=== PATIENT | female | born 1955 | race Caucasian/White ===

== ENCOUNTER 2023-02-13 18:26 | Inpatient (IN) | payer OTHER, MEDICARE, SELFPAY ==
[2023-02-13] VITALS (19 sets, daily range): BP systolic 69–110; BP diastolic 37–91; PULSE 99–112; RESP 15–31; TEMP 36.4–36.7; O2SAT 93–97; BMI 30.2
--- NOTE | ~2023-02-13 | XR_ITS ---
EXAMINATION: XR CHEST CLINICAL INFORMATION: Hemoptysis COMPARISON: Previous chest x-ray most recent from yesterday TECHNIQUE: Frontal view of the chest was obtained. FINDINGS: The cardiac and mediastinal contours are stable. The lung volumes are low. Crowding of the central bronchovascular markings. There is a right jugular line with tip projecting over the cavoatrial junction. There is increasing density at the left lung base questionable for left lower lobe atelectasis or small infiltrate. The right lung is clear. There may be a small left pleural effusion. There is no right pleural effusion. There is no pneumothorax. There are degenerative changes of the spine. XR/XR chest 1V IMPRESSION: Low lung volumes. Question increasing left lower lobe atelectasis or small infiltrate and small left pleural effusion.
--- NOTE | ~2023-02-13 | FL_ITS ---
EXAMINATION: XR FL WITH IMAGES CLINICAL INFORMATION: Kidney stone. COMPARISON: Previous CT of the abdomen and pelvis 02/13/2023. TECHNIQUE: Fluoroscopy Supervised By: Dr. Forbes. Fluoroscopy Time: 34 seconds. Cumulative Dose: 12.5 mGy. Images: 1. FINDINGS: Single image demonstrates opacification of the left renal collecting system and ureter. No hydronephrosis or stone seen. FL/FL guidance in OR IMPRESSION: Fluoroscopy guidance for urologic procedure.
--- NOTE | ~2023-02-13 | XR_ITS ---
EXAMINATION: XR CHEST CLINICAL INFORMATION: Line placement COMPARISON: Previous chest x-ray most recent from yesterday TECHNIQUE: Frontal view of the chest was obtained. FINDINGS: There is a new right jugular line with tip projecting over the cavoatrial junction. The cardiac silhouette is slightly enlarged but stable. The lung volumes are low. The lungs are clear. No pleural effusion or pneumothorax. No acute bone abnormality. XR/XR chest 1V IMPRESSION: Right jugular line projects over SVC. No pneumothorax.
--- NOTE | ~2023-02-13 | CT_ITS ---
EXAMINATION: CT ANGIOGRAM OF THE CHEST WITH AND WITHOUT CONTRAST (CT PULMONARY ANGIOGRAM FOR PE) CLINICAL INFORMATION: Reason for Exam tachycardia COMPARISON: Chest radiograph 02/15/2023. CT abdomen pelvis 02/13/2023. TECHNIQUE: Prior to contrast administration, noncontrast localization images were obtained. Subsequently, multidetector volumetric imaging was performed from the thoracic inlet to below the diaphragms following the administration of 65 mL Omnipaque 350 intravenous contrast. No contrast reaction reported Sagittal, coronal, and MIP oblique sagittal reformatted images were obtained on the CT workstation, uploaded to PACS, and reviewed. This CT examination was performed using dose optimization techniques as appropriate, variously including the following: *Automated exposure control *Adjustment of mA and/or kV according to patient size (this includes techniques or standardized protocols for targeted exams where dose is matched to indication/reason for exam; i.e. extremities or head) *Use of iterative reconstruction technique Total exam dose-length product 323 mGy-cm FINDINGS: QUALITY OF STUDY/CONTRAST BOLUS: Satisfactory. PULMONARY ARTERIES: No pulmonary emboli. THORACIC AORTA: Moderate scattered calcific atherosclerosis. No aneurysmal dilatation or thoracic aortic dissection identified. LUNG: Mild bibasilar subsegmental dependent atelectasis of the lungs is noted. No focal pulmonary consolidation visualized. PLEURA: No pleural effusion or pneumothorax. MEDIASTINUM: Normal heart size. No pericardial effusion. No hilar or mediastinal lymphadenopathy. No evidence of septal bowing or right heart strain. CORONARY ARTERY CALCIFICATION: Partial visualization of moderate-marked scattered coronary artery calcific atherosclerosis. CHEST WALL/AXILLA: No axillary or internal mammary lymphadenopathy. OSSEOUS STRUCTURES: Mild multilevel anterior endplate osteophytosis of the visualized thoracolumbar spine. No vertebral body compression deformities. UPPER ABDOMEN: Diffuse low density of the visualized liver suspicious for diffuse hepatic steatosis. The gallbladder is partially included in the image [id number] and appears physiologically decompressed. The superior margins of the left and right kidneys are minimally included in the image [id number]. The visualized left kidney exhibits less cortical enhancement and the visualized right kidney suspicious for delayed nephrographic enhancement. CT/CT angio chest PE protocol IMPRESSION: 1. CT pulmonary angiogram negative for pulmonary emboli. 2. No acute cardiopulmonary abnormalities identified. 3. Partially visualized moderate-marked scattered coronary artery calcific atherosclerosis. 4. Partially visualized diffuse hepatic steatosis. 5. Mild bibasilar atelectasis of the lungs. 6. Delayed nephrographic enhancement of the visualized left kidney suspicious for active/acute obstructive nephropathy. Of note, CT of abdomen and pelvis from 02/13/2023 identified a 3 mm obstructing calculus within the left ureter. VTE: negative.
--- NOTE | ~2023-02-13 | CT_ITS ---
EXAMINATION: CT ABDOMEN AND PELVIS WITHOUT CONTRAST CLINICAL INFORMATION: Bilateral flank pain, nausea, vomiting COMPARISON: None available. TECHNIQUE: Multidetector volumetric imaging was performed from the superior aspect of the liver through the pubic symphysis. Sagittal and coronal reformatted images were obtained on the technologist's workstation. This CT examination was performed using dose optimization techniques as appropriate, variously including the following: *Automated exposure control *Adjustment of mA and/or kV according to patient size (this includes techniques or standardized protocols for targeted exams where dose is matched to indication/reason for exam; i.e. extremities or head) *Use of iterative reconstruction technique DLP: 585 mGy-cm FINDINGS: LUNG BASES: The visualized lung bases are unremarkable aside from bibasilar atelectasis. LIVER, GALLBLADDER, AND BILIARY TREE: The liver is normal in size and shape but demonstrates decreased attenuation consistent with hepatic steatosis. No focal hepatic lesion or biliary ductal dilatation is present. The gallbladder is unremarkable with no evidence of radiopaque gallstones, gallbladder wall thickening, or obvious pericholecystic inflammatory changes. PANCREAS: Unremarkable. SPLEEN: Unremarkable. ADRENAL GLANDS: Unremarkable. KIDNEYS AND URETERS: There is a 3 mm obstructing proximal left ureteral calculus with mild left sided hydronephrosis and marked perinephric stranding presumably secondary to forniceal rupture. This stone measures about 480 Hounsfield units which includes partial volume averaging. There is a 4 mm stone present in the upper pole infundibula. Vascular calcifications are seen on the left. No right-sided hydronephrosis. No renal masses. BLADDER: The bladder is empty. GASTROINTESTINAL TRACT: The small and large bowel are unremarkable. The appendix is unremarkable. ABDOMINAL WALL: No significant hernia is appreciated. There is a tiny periumbilical hernia seen containing only fat. LYMPH NODES: Normal. VASCULAR: Unremarkable. PELVIC VISCERA: The uterus and adnexa are unremarkable. OSSEOUS STRUCTURES: Degenerative changes are present spine. No bony destructive CT/CT abdomen pelvis wo IV con IMPRESSION: 3 mm obstructing proximal left ureteral calculus with mild hydronephrosis and marked perinephric stranding presumably secondary to forniceal rupture. There is at least one other nonobstructing left intrarenal calculus. Incidentally noted hepatic steatosis. Fleischner guidelines were followed.
--- NOTE | ~2023-02-13 | XR_ITS ---
EXAMINATION: XR CHEST CLINICAL INFORMATION: Shortness of breath COMPARISON: CT scan 02/14/2020 TECHNIQUE: Frontal view of the chest was obtained. FINDINGS: Heart size within normal limits. There is increased opacity seen in the left costophrenic angle suggesting a small pleural effusion although no effusions seen on CT scan performed immediately after. Left basilar atelectasis is present. XR/XR chest 1V IMPRESSION: Left basilar atelectasis
[2023-02-13] MEDS: 0.9 % Sodium Chloride 1,000 ML 999 ML IV ×2 (18:54→19:30)
--- NOTE | 2023-02-13 18:56 | ED_ITS ---
HPI - General Adult General Chief complaint: Weakness Stated complaint: nausea vomiting Time Seen by Provider: 02/13/23 18:31 Source: patient Mode of arrival: ambulatory Limitations: no limitations History of Present Illness HPI narrative: This is a 67-year-old female COVID positive 10 days ago presenting to the em ergency department complaints of nausea, vomiting, diarrhea, bilateral flank pain since yesterday. Patient reports she is very uncomfortable in pain is severe and constant in nature. She tells me she has spinal stenosis however this feels different. Patient also endorsing shortness of breath, worse with exertion. Patient tells me she is unable to keep anything down in each time she tries to eat she there has an episode of vomiting or diarrhea. Patient denies fevers, chills, chest pain, hematemesis, melena, hematochezia, vision changes, dizziness and weakness. Related Data Home Medications Medication Instructions Recorded Confirmed amlodipine 10 mg tablet 10 mg PO DAILY 02/13/23 02/13/23 atorvastatin 40 mg tablet 40 mg PO DAILY 02/13/23 02/13/23 cholecalciferol (vitamin D3) 50 50 mcg PO DAILY 02/13/23 02/13/23 mcg (2,000 unit) capsule losartan 100 mg tablet 100 mg PO DAILY 02/13/23 02/13/23 metoprolol succinate 100 mg 100 mg PO DAILY 02/13/23 02/13/23 tablet,extended release 24 hr naproxen 500 mg tablet 500 mg PO BIDWM 02/13/23 02/13/23 omeprazole 20 mg capsule,delayed 20 mg PO DAILY@0630 02/13/23 02/13/23 release Allergies Allergy/AdvReac Type Severity Reaction Status Date / Time atenolol [ATENOLOL] Allergy Unknown COUGH Verified 02/13/23 18:49 ADHESIVE BANDAGE Allergy Unknown RASH Uncoded 06/11/20 15:51 Review of Systems Review of Systems: Constitutional : No Weight loss, No Fever, No Chills, No Fatigue, No Malaise ENT/Mouth : No sore throat, No Rhinorrhea Eyes: No Eye Pain, No Swelling, No Redness Cardiovascular : No Chest Pain, No SOB, No Dyspnea on Exertion, No Orthopnea, No Edema, No Palpitations Respiratory : No Cough, No Sputum, No Wheezing Gastrointestinal : + Nausea, + Vomiting, + Diarrhea, No Constipation, No abdominal Pain, No Hematochezia, No Melena Genitourinary : No Dysuria, No Urinary Frequency, No Hematuria, Musculoskeletal : No joint pain, No Myalgias, No Joint Swelling, + flank pain Skin : No Skin Lesions, No rash Neuro : No Weakness, No Numbness, No Dizziness, No Headache Psych : No Anxiety/Panic, No Depression All other systems reviewed and are negative Yes all other systems are reviewed and are negative [facility] Past Medical History Attestation statement: The following information was validated with the patient. Source: old records reviewed and nursing notes reviewed Social History Social History Alcohol intake: never Smoked in Last 30 Days: No Use of substances other than those prescribed or required for medical reasons: No Advance Directives: No Advance Directives Information Provided: No Physical Exam ED Vital Signs: Vital Signs - 24 hr 02/13/23 18:35 02/13/23 22:12 02/13/23 22:21 Temperature 98.0 F 97.6 F Pulse Rate 104 H 104 H 102 H Respiratory Rate 20 15 28 H Blood Pressure 87/62 L 74/37 L 82/40 L Pulse Oximetry 95 95 95 Oxygen Delivery Method Room Air Room Air Room Air 02/13/23 22:34 02/13/23 21:30 02/13/23 22:40 Temperature 98.1 F Pulse Rate 107 H 99 102 H Respiratory Rate 18 30 H Blood Pressure 69/39 L 92/66 80/47 L Pulse Oximetry 95 95 Oxygen Delivery Method Room Air Room Air 02/13/23 22:40 02/13/23 22:45 02/13/23 22:45 Temperature Pulse Rate 109 H 108 H 106 H Respiratory Rate 31 H Blood Pressure 80/47 L 85/43 L 85/43 L Pulse Oximetry 94 Oxygen Delivery Method Room Air 02/13/23 22:50 02/13/23 22:52 Temperature Pulse Rate 105 H 104 H Respiratory Rate 24 H Blood Pressure 86/45 L 86/45 L Pulse Oximetry 93 Oxygen Delivery Method Room Air BMI result Body Mass Index 30.2 vss Appearance: Alert.? Oriented X3.? No acute distress.? Head: Normocephalic, atraumatic, no step-offs or deformities Eyes: Pupils equal, round and reactive to light.? CVS: Normal heart rate and rhythm.? Pulses normal.? Respiratory: No respiratory distress.? Breath sounds normal.? Abdomen: Soft and nontender.? Skin: Skin warm and dry.? Normal skin color.? Normal skin turgor.? Extremities: No lower extremity edema.? No calf ttp. 5/5 strength to bilateral upper and lower extremities Back: +CVA tenderness bilaterally Neuro: Oriented X 3.? No motor deficit.? No sensory deficit. CN 2-12 intact Course Reevaluation(s) Reevaluation #1: Patient is noted to have leukocytosis 12.8 likely reactive and secondary to nausea and vomiting, chemistry within acute kidney injury likely secondary to acute dehydration from nausea vomiting, lactic acid also noted to be elevated 3.8 I suspect this is secondary to acute dehydration not secondary to sepsis. Patient's magnesium 1 point L likely secondary to GI losses IV mag ordered. Troponin slightly elevated 34.5, unlikely that this is ACS, likely troponin e levated secondary to acute kidney injury. Patient complains only of shortness of breath however no complaints of chest pain. Normal lipase. Patient is noted to be COVID positive here while testing however patient was COVID positive 10 days ago at home likely that this is just still a positive test from initial infection. Time: 19:37 Reevaluation #2: Keep NPO likely stent tomorrow per urology , recommends hydration and suspects something else is going on. Time: 20:38 Reevaluation #3: Patient was now able to give us a urine, patient meeting criteria for urosepsis, 30 cc kg bolus ordered. Plan is for hospital admission for patient to be NPO At this time infection suspected. ? Time: 22:22 Additional Reevaluation(s): Patient accepted to our ICU. Spoke to Dr. Chicas Medications Administered Generic Name Dose Route Start Last Admin Trade Name Freq PRN Reason Stop Dose Admin Norepinephrine Bitartrate 8 mg in 250 mls @ 0 mls/hr 02/13/23 22:30 02/13/23 22:50 Levophed IV 0.11 mcg/kg/min .Q0M LIBAN 14.95 mls/hr Titration Protocol Per Protocol Sodium Chloride 2,175 mls @ 2,175 mls/hr 02/13/23 22:20 02/13/23 22:34 Ns 30 ml/kg infuse over 1 hr (2175 ml) 02/13/23 23:19 2,175 mls/hr IV Administration .Q1H STA Discontinued Medications Generic Name Dose Route Start Last Admin Trade Name Oswaldo PRN Reason Stop Dose Admin Fentanyl 25 mcg 02/13/23 19:38 02/13/23 20:16 Fentanyl Citrate/Pf 100 Mcg/2 Ml Vial IVPUSH 02/13/23 19:39 25 mcg ONCE ONE Administration Protocol Fentanyl 25 mcg 02/13/23 22:39 02/13/23 22:44 Fentanyl Citrate/Pf 100 Mcg/2 Ml Vial IVPUSH 02/13/23 22:40 25 mcg ONCE ONE Administration Protocol Sodium Chloride 1,000 mls @ 999 mls/hr 02/13/23 19:00 02/13/23 20:19 Ns IV 02/13/23 20:00 Infused .Q1H1M LIBAN Infusion Magnesium Sulfate 2 gm in 50 mls @ 25 mls/hr 02/13/23 19:11 02/13/23 21:10 Magnesium Sulfate/H2o IV 02/13/23 21:10 Infused ONCE ONE Infusion Sodium Chloride 1,000 mls @ 999 mls/hr 02/13/23 19:30 02/13/23 21:10 Ns IV 02/13/23 20:30 Infused .Q1H1M LIBAN Infusion Piperacillin Sod/Tazobactam 50 mls @ 100 mls/hr 02/13/23 19:49 02/13/23 21:10 Sod 3.375 gm/ Sodium Chloride IV 02/13/23 20:18 Infused ONCE ONE Infusion Prednisone 2 mg 02/13/23 20:37 02/13/23 21:46 Prednisone 1 Mg Tablet PO 02/13/23 20:38 2 mg ONCE ONE Administration Tamsulosin HCl 0.4 mg 02/13/23 20:37 02/13/23 21:47 Tamsulosin Hcl 0.4 Mg Capsule PO 02/13/23 20:38 0.4 mg ONCE ONE Administration Medical Decision Making Medical Decision Making [facility] Narrative: 1904 67-year-old female presents with nausea, vomiting, diarrhea, bilateral flank pain and shortness of breath for the past few days worsening. Was COVID positive 10 days ago. Physical exam bilateral CVA tenderness on exam. Concerns for possible viral illness versus colitis versus obstructing uropathy versus kidney stone versus pyelonephritis. Unlikely acute abdomen. Will rule out CHF although unlikely. I do not suspect pulmonary embolism on this patient patient without significant risk factors. Will also rule out pneumonia although unlikely. Plan labs, imaging, urine, viral testing. Differential Diagnosis Differential Diagnoses: The differential diagnosis associated with the presentation includes Concerns for possible viral illness versus colitis versus obstructing uropathy versus kidney stone versus pyelonephritis. Unlikely acute abdomen. Will rule out CHF although unlikely. I do not suspect pulmonary embolism on this patient patient without significant risk factors. Will also rule out pneumonia although unlikely. Admission/Observation Consideration of admission/observation: Escalation of care including admission/observation considered Lab Data MDM Lab Attestation statement: I reviewed the patient's lab results. 02/13/23 18:45 02/13/23 18:45 Labs: Lab Results 02/13/23 02/13/23 02/13/23 Range/Units 18:45 18:45 18:45 WBC 12.8 H (4.8-10.8) X10*3/uL RBC 4.09 L (4.20-5.50) X10*6/uL Hgb 12.5 (12.0-16.0) g/dl Hct 36.5 L (37.0-47.0) % MCV 89.2 (80.0-98.0) fL MCH 30.6 (27.0-33.0) pg MCHC 34.2 (31.0-35.0) g/dl RDW 13.1 (11.0-16.0) % Plt Count 218 (160-400) X10*3/uL MPV 10.1 (9.4-12.3) fL Immature Gran % (Auto) Cancelled Neut % (Auto) Cancelled Lymph % (Auto) Cancelled [place] % (Auto) Cancelled Eos % (Auto) Cancelled Baso % (Auto) Cancelled Lymph # (Auto) Cancelled [place] # (Auto) Cancelled Eos # (Auto) Cancelled Baso # (Auto) Cancelled Abs Immat Gran (auto) Cancelled Absolute Neuts (auto) Cancelled Absolute Nucleated RBC 0.000 (0.0-0.012) X10*3/uL Nucleated RBC % (auto) 0.0 (0.0-0.2) /100WBC Neutrophils % (Manual) 64 (45-73) % Band Neutrophils % 21 H (3-5) % Lymphocytes % (Manual) 6 L (20-40) % Monocytes % (Manual) 3 (2-11) % Metamyelocytes % 5 % Myelocytes % 1 % Abs Neuts (Manual) 10.9 H (2.0-8.3) X10*3/uL Lymphocytes # (Manual) 0.8 L (1.2-4.9) X10*3/uL Monocytes # (Manual) 0.4 (0.1-1.2) X10*3/uL Metamyelocytes # 0.6 X10*3/uL Myelocytes # 0.1 X10*/uL Platelet Estimate NORMAL (NORMAL) Large Platelets PRESENT Plt Morphology Comment NOTED RBC Morphology NORMAL VBG pH (7.32-7.43) VBG pCO2 mmHg VBG pO2 mmHg VBG HCO3 (22-26) mmol/L VBG O2 Saturation % VBG Base Excess mmol/L Sodium 137 (135-145) mmol/L Potassium 4.2 (3.3-5.1) mmol/L Chloride 106 (96-108) mmol/L Carbon Dioxide 17 L (22-29) mmol/L Anion Gap 18 (12-20) BUN 42 H (9-16) mg/dL Creatinine 1.94 H (0.5-1.4) mg/dL Estim Creat Clear Calc 25.6 Estimated GFR 26 Random Glucose 107 (60-115) mg/dL Lactic Acid (0.5-2.0) mmol/L Lactic Acid F/U @ 2Hr (0.5-2.0) mmol/L Calcium 8.5 (8.4-10.2) mg/dL Magnesium 1.0 L* (1.6-2.6) mg/dL Total Bilirubin 0.8 (0.0-1.0) mg/dL AST 20 (5-31) U/L ALT 27 (0-31) U/L Alkaline Phosphatase 75 (39-117) U/L Troponin I High Sens (<3.5-17.0) ng/L B-Natriuretic Peptide 260 H (<100) pg/mL Total Protein 5.7 L (6.5-8.0) g/dL Albumin 3.2 L (3.5-5.0) g/dL Lipase 12 (8-78) U/L Urine Color Urine Appearance Urine pH (5.0-9.0) Ur Specific [place] (1.005-1.025) Urine Protein (Neg-Trace) mg/dL Urine Glucose (UA) (Negative) mg/dL Urine Ketones (Negative) mg/dL Urine Blood (Negative) Urine Nitrite (Negative) Ur Leukocyte Esterase (Negative) Urine RBC (0-2) /HPF Urine WBC (0-5) /HPF Ur Squamous Epith Cells (0-2) /HPF Urine Bacteria (None Seen) Hyaline Casts (0-2) /LPF COVID-19 (CHARITY) (Negative) COVID-19 Clin Com 02/13/23 02/13/23 02/13/23 Range/Units 18:51 18:53 18:53 WBC (4.8-10.8) X10*3/uL RBC (4.20-5.50) X10*6/uL Hgb (12.0-16.0) g/dl Hct (37.0-47.0) % MCV (80.0-98.0) fL MCH (27.0-33.0) pg MCHC (31.0-35.0) g/dl RDW (11.0-16.0) % Plt Count (160-400) X10*3/uL MPV (9.4-12.3) fL Immature Gran % (Auto) Neut % (Auto) Lymph % (Auto) [place] % (Auto) Eos % (Auto) Baso % (Auto) Lymph # (Auto) [place] # (Auto) Eos # (Auto) Baso # (Auto) Abs Immat Gran (auto) Absolute Neuts (auto) Absolute Nucleated RBC (0.0-0.012) X10*3/uL Nucleated RBC % (auto) (0.0-0.2) /100WBC Neutrophils % (Manual) (45-73) % Band Neutrophils % (3-5) % Lymphocytes % (Manual) (20-40) % Monocytes % (Manual) (2-11) % Metamyelocytes % % Myelocytes % % Abs Neuts (Manual) (2.0-8.3) X10*3/uL Lymphocytes # (Manual) (1.2-4.9) X10*3/uL Monocytes # (Manual) (0.1-1.2) X10*3/uL Metamyelocytes # X10*3/uL Myelocytes # X10*/uL Platelet Estimate (NORMAL) Large Platelets Plt Morphology Comment RBC Morphology VBG pH (7.32-7.43) VBG pCO2 mmHg VBG pO2 mmHg VBG HCO3 (22-26) mmol/L VBG O2 Saturation % VBG Base Excess mmol/L Sodium (135-145) mmol/L Potassium (3.3-5.1) mmol/L Chloride (96-108) mmol/L Carbon Dioxide (22-29) mmol/L Anion Gap (12-20) BUN (9-16) mg/dL Creatinine (0.5-1.4) mg/dL Estim Creat Clear Calc Estimated GFR Random Glucose (60-115) mg/dL Lactic Acid 3.8 H* (0.5-2.0) mmol/L Lactic Acid F/U @ 2Hr (0.5-2.0) mmol/L Calcium (8.4-10.2) mg/dL Magnesium (1.6-2.6) mg/dL Total Bilirubin (0.0-1.0) mg/dL AST (5-31) U/L ALT (0-31) U/L Alkaline Phosphatase (39-117) U/L Troponin I High Sens 34.5 H (<3.5-17.0) ng/L B-Natriuretic Peptide (<100) pg/mL Total Protein (6.5-8.0) g/dL Albumin (3.5-5.0) g/dL Lipase (8-78) U/L Urine Color Urine Appearance Urine pH (5.0-9.0) Ur Specific [place] (1.005-1.025) Urine Protein (Neg-Trace) mg/dL Urine Glucose (UA) (Negative) mg/dL Urine Ketones (Negative) mg/dL Urine Blood (Negative) Urine Nitrite (Negative) Ur Leukocyte Esterase (Negative) Urine RBC (0-2) /HPF Urine WBC (0-5) /HPF Ur Squamous Epith Cells (0-2) /HPF Urine Bacteria (None Seen) Hyaline Casts (0-2) /LPF COVID-19 (CHARITY) Positive A (Negative) COVID-19 Clin Com See Note 02/13/23 02/13/23 02/13/23 Range/Units 20:23 20:33 21:27 WBC (4.8-10.8) X10*3/uL RBC (4.20-5.50) X10*6/uL Hgb (12.0-16.0) g/dl Hct (37.0-47.0) % MCV (80.0-98.0) fL MCH (27.0-33.0) pg MCHC (31.0-35.0) g/dl RDW (11.0-16.0) % Plt Count (160-400) X10*3/uL MPV (9.4-12.3) fL Immature Gran % (Auto) Neut % (Auto) Lymph % (Auto) [place] % (Auto) Eos % (Auto) Baso % (Auto) Lymph # (Auto) [place] # (Auto) Eos # (Auto) Baso # (Auto) Abs Immat Gran (auto) Absolute Neuts (auto) Absolute Nucleated RBC (0.0-0.012) X10*3/uL Nucleated RBC % (auto) (0.0-0.2) /100WBC Neutrophils % (Manual) (45-73) % Band Neutrophils % (3-5) % Lymphocytes % (Manual) (20-40) % Monocytes % (Manual) (2-11) % Metamyelocytes % % Myelocytes % % Abs Neuts (Manual) (2.0-8.3) X10*3/uL Lymphocytes # (Manual) (1.2-4.9) X10*3/uL Monocytes # (Manual) (0.1-1.2) X10*3/uL Metamyelocytes # X10*3/uL Myelocytes # X10*/uL Platelet Estimate (NORMAL) Large Platelets Plt Morphology Comment RBC Morphology VBG pH 7.38 (7.32-7.43) VBG pCO2 31 mmHg VBG pO2 44 mmHg VBG HCO3 19 L (22-26) mmol/L VBG O2 Saturation 73.0 % VBG Base Excess -4.8 mmol/L Sodium (135-145) mmol/L Potassium (3.3-5.1) mmol/L Chloride (96-108) mmol/L Carbon Dioxide (22-29) mmol/L Anion Gap (12-20) BUN (9-16) mg/dL Creatinine (0.5-1.4) mg/dL Estim Creat Clear Calc Estimated GFR Random Glucose (60-115) mg/dL Lactic Acid (0.5-2.0) mmol/L Lactic Acid F/U @ 2Hr 4.1 H* (0.5-2.0) mmol/L Calcium (8.4-10.2) mg/dL Magnesium (1.6-2.6) mg/dL Total Bilirubin (0.0-1.0) mg/dL AST (5-31) U/L ALT (0-31) U/L Alkaline Phosphatase (39-117) U/L Troponin I High Sens (<3.5-17.0) ng/L B-Natriuretic Peptide (<100) pg/mL Total Protein (6.5-8.0) g/dL Albumin (3.5-5.0) g/dL Lipase (8-78) U/L Urine Color Yellow Urine Appearance Cloudy Urine pH 5.5 (5.0-9.0) Ur Specific [place] 1.015 (1.005-1.025) Urine Protein 100 (2+) H (Neg-Trace) mg/dL Urine Glucose (UA) Negative (Negative) mg/dL Urine Ketones Negative (Negative) mg/dL Urine Blood Moderate (2+) H (Negative) Urine Nitrite Positive H (Negative) Ur Leukocyte Esterase Large (3+) H (Negative) Urine RBC 11-20 H (0-2) /HPF Urine WBC >50 H (0-5) /HPF Ur Squamous Epith Cells 0-2 (0-2) /HPF Urine Bacteria 4+ (None Seen) Hyaline Casts 11-20 (0-2) /LPF COVID-19 (CHARITY) (Negative) COVID-19 Clin Com 02/13/23 Range/Units 21:27 WBC (4.8-10.8) X10*3/uL RBC (4.20-5.50) X10*6/uL Hgb (12.0-16.0) g/dl Hct (37.0-47.0) % MCV (80.0-98.0) fL MCH (27.0-33.0) pg MCHC (31.0-35.0) g/dl RDW (11.0-16.0) % Plt Count (160-400) X10*3/uL MPV (9.4-12.3) fL Immature Gran % (Auto) Neut % (Auto) Lymph % (Auto) [place] % (Auto) Eos % (Auto) Baso % (Auto) Lymph # (Auto) [place] # (Auto) Eos # (Auto) Baso # (Auto) Abs Immat Gran (auto) Absolute Neuts (auto) Absolute Nucleated RBC (0.0-0.012) X10*3/uL Nucleated RBC % (auto) (0.0-0.2) /100WBC Neutrophils % (Manual) (45-73) % Band Neutrophils % (3-5) % Lymphocytes % (Manual) (20-40) % Monocytes % (Manual) (2-11) % Metamyelocytes % % Myelocytes % % Abs Neuts (Manual) (2.0-8.3) X10*3/uL Lymphocytes # (Manual) (1.2-4.9) X10*3/uL Monocytes # (Manual) (0.1-1.2) X10*3/uL Metamyelocytes # X10*3/uL Myelocytes # X10*/uL Platelet Estimate (NORMAL) Large Platelets Plt Morphology Comment RBC Morphology VBG pH (7.32-7.43) VBG pCO2 mmHg VBG pO2 mmHg VBG HCO3 (22-26) mmol/L VBG O2 Saturation % VBG Base Excess mmol/L Sodium (135-145) mmol/L Potassium (3.3-5.1) mmol/L Chloride (96-108) mmol/L Carbon Dioxide (22-29) mmol/L Anion Gap (12-20) BUN (9-16) mg/dL Creatinine (0.5-1.4) mg/dL Estim Creat Clear Calc Estimated GFR Random Glucose (60-115) mg/dL Lactic Acid (0.5-2.0) mmol/L Lactic Acid F/U @ 2Hr (0.5-2.0) mmol/L Calcium (8.4-10.2) mg/dL Magnesium (1.6-2.6) mg/dL Total Bilirubin (0.0-1.0) mg/dL AST (5-31) U/L ALT (0-31) U/L Alkaline Phosphatase (39-117) U/L Troponin I High Sens 46.6 H (<3.5-17.0) ng/L B-Natriuretic Peptide (<100) pg/mL Total Protein (6.5-8.0) g/dL Albumin (3.5-5.0) g/dL Lipase (8-78) U/L Urine Color Urine Appearance Urine pH (5.0-9.0) Ur Specific [place] (1.005-1.025) Urine Protein (Neg-Trace) mg/dL Urine Glucose (UA) (Negative) mg/dL Urine Ketones (Negative) mg/dL Urine Blood (Negative) Urine Nitrite (Negative) Ur Leukocyte Esterase (Negative) Urine RBC (0-2) /HPF Urine WBC (0-5) /HPF Ur Squamous Epith Cells (0-2) /HPF Urine Bacteria (None Seen) Hyaline Casts (0-2) /LPF COVID-19 (CHARITY) (Negative) COVID-19 Clin Com Critical Care Time Critical Care Time Critical Care Time: Yes Total Critical Care Time: 60 Attestation: I attest to this time spent taking care of the patient, obtaining history, physical, reviewing labs, imaging, speaking to my attending, speaking to specialist. Discharge Plan Discharge Clinical Impression: Nausea & vomiting, Dehydration, Acute flank pain, CESAR (acute kidney injury), Acidosis, lactic, Viral illness, Hypomagnesemia, Acute UTI Patient Disposition: Admitted As Inpatient
--- NOTE | 2023-02-13 19:05 | ECG_ITS ---
Test Reason : WEAKNESS Blood Pressure : / mmHG Vent. Rate : 103 BPM Atrial Rate : 103 BPM P-R Int : 152 ms QRS Dur : 082 ms QT Int : 346 ms P-R-T Axes : 054 015 033 degrees QTc Int : 453 ms Sinus tachycardia Nonspecific ST and T wave abnormality Abnormal ECG No previous ECGs available Referred By: Ramirez Kay Electronically Signed By:MARISEL HENDERSON
[2023-02-13 19:08] LABS: COVID-19 Test Positive (Negative); IDNOW Serial# BCCEAD1C
[2023-02-13 19:12] LABS: Alanine Aminotransferase 27 U/L (0-31); Albumin Level 3.2 g/dL (3.5-5.0); Alkaline Phosphatase 75 U/L (39-117); Anion Gap 18 (12-20); Aspartate Amino Transferase 20 U/L (5-31); Bilirubin Total 0.8 mg/dL (0.0-1.0); Blood Urea Nitrogen 42 mg/dL (9-16); Calcium 8.5 mg/dL (8.4-10.2); Carbon Dioxide 17 mmol/L (22-29); Chloride 106 mmol/L (96-108); Creatinine Clr Calc Pharmacy 25.6; Estimated Glomerular Filt Rate 26; Glucose Random 107 mg/dL (60-115); Hematocrit 36.5 % (37.0-47.0); Hemoglobin 12.5 g/dl (12.0-16.0); Lipase 12 U/L (8-78); Mean Corpuscular HGB Conc 34.2 g/dl (31.0-35.0); Mean Corpuscular Hemoglobin 30.6 pg (27.0-33.0); Mean Corpuscular Volume 89.2 fL (80.0-98.0); Mean Platelet Volume 10.1 fL (9.4-12.3); Platelet Count 218 X10*3/uL (160-400); Potassium 4.2 mmol/L (3.3-5.1); Red Blood Count 4.09 X10*6/uL (4.20-5.50); Red Cell Distribution Width 13.1 % (11.0-16.0); Sodium 137 mmol/L (135-145); Total Protein 5.7 g/dL (6.5-8.0)
[2023-02-13 19:15] LABS: WBC ABN SCTR FOR CBC 1; White Blood Count 12.8 X10*3/uL (4.8-10.8)
[2023-02-13] MEDS: Magnesium Sulfate/H2O 2 GM/50 ML PIGGYBACK IV ×2 (19:24→23:32)
[2023-02-13 19:32] LABS: Troponin-I High Sensitivity 34.5 ng/L (<3.5-17.0)
[2023-02-13 19:36] LABS: Lactic Acid 3.8 mmol/L (0.5-2.0)
[2023-02-13 19:37] LABS: B Type Natriuretic Peptide 260 pg/mL (<100)
--- NOTE | 2023-02-13 19:42 | PC.NURSE ---
I assumed care of the pt at 1900. Pt is resting in bed, A&Ox4, GCS 15. Pt complaining of pain in the sides and low to mid back. Pt is resting in bed, labs have been drawn, CT scan has been taken, and fluids are running at this time.
[2023-02-13 19:45] LABS: Neutrophils Percent Manual 64 % (45-73)
[2023-02-13 19:47] LABS: Band Neutrophils Percent 21 % (3-5); Lymphocytes Absolute Manual 0.8 X10*3/uL (1.2-4.9); Lymphocytes Percent Manual 6 % (20-40); Metamyelocytes Absolute 0.6 X10*3/uL; Metamyelocytes Percent 5 %; Monocytes Absolute Manual 0.4 X10*3/uL (0.1-1.2); Monocytes Percent Manual 3 % (2-11); Myelocytes Absolute 0.1 X10*/uL; Myelocytes Percent 1 %; Neutrophils Absolute Manual 10.9 X10*3/uL (2.0-8.3)
[2023-02-13 19:48] LABS: Large Platelet PRESENT; Platelet Estimate NORMAL (NORMAL); Platelet Morphology Comment NOTED; RBC Morphology NORMAL
[2023-02-13] MEDS: fentaNYL citrate/PF 100 MCG/2 ML VIAL 25 MCG IVPUSH ×2 (20:16→22:44)
[2023-02-13] MEDS: Piperacillin Sodium/Tazobactam 3.375 GM in 0.9 % Sodium Chloride 50 ML IV (20:18)
[2023-02-13 20:30] LABS: Venous Blood Gas Refer to POC result
[2023-02-13 20:30] LABS: VBG Base Excess -4.8 mmol/L; VBG HCO3 19 mmol/L (22-26); VBG pCO2 31 mmHg; VBG pH 7.38 (7.32-7.43); VBG pO2 44 mmHg
[2023-02-13 20:45] LABS: Appearance Urine Cloudy; Color Urine Yellow; Glucose Urine UA Negative (Negative); Leukocyte Esterase Urine Large (3+) (Negative); Nitrite Urine Positive (Negative); PH 5.5 (5.0-9.0); Specific Gravity - Urine 1.015 (1.005-1.025); UMIC TRIGGER UACC YES; Urine Blood Moderate (2+) (Negative); Urine Ketones Negative (Negative); Urine Protein 100 (2+) mg/dL (Neg-Trace)
[2023-02-13 20:59] LABS: Bacteria Urine 4+ (None Seen); Squamous Epithelial Cell Urine 0-2 /HPF (0-2); UACC Culture Trigger YES; WBC Urine >50 /HPF (0-5)
[2023-02-13 21:10] LABS: Reflex Lactate? Lactic Acid Added
[2023-02-13] MEDS: predniSONE 1 MG TABLET 2 MG PO (21:46)
[2023-02-13] MEDS: Tamsulosin HCL 0.4 MG CAPSULE PO (21:47)
--- NOTE | 2023-02-13 21:59 | PHA.MEDREC ---
Pharmacy Consult ? Medication Reconciliation Pharmacy has completed the medication reconciliation.
[2023-02-13 22:08] LABS: ~Lactic Acid-LAB USE ONLY 4.1 mmol/L (0.5-2.0)
[2023-02-13 22:12] LABS: Troponin-I High Sensitivity 46.6 ng/L (<3.5-17.0)
--- NOTE | 2023-02-13 22:19 | PC.NURSE ---
Pt resting in bed, complaining of 7/10 pain in the sides and back. Pt BP noted to be low, PS Toma aware. Pt has been put on the panel monitor. Pt A&Ox4, GCS 15. Pt has a mild cough at this time. Stating she is very sore and tired.
[2023-02-13] MEDS: Norepinephrine Bitartrate/D5W 8 MG/250 ML PLAST..BAG 6.8 MG IV (22:34)
[2023-02-13] MEDS: SODIUM CHLORIDE 2175 ML IV (22:34)
--- NOTE | 2023-02-13 22:36 | PC.NURSE ---
Pt started on levophed. BP set for q5min, per protocol. Pt stated she is not feeling well. Pt also put in reverse trendelenburg.
--- NOTE | 2023-02-13 22:53 | PC.NURSE ---
Pt resting in bed at this time. States her pain is getting better. Levophed is being titrated per protocol, vitals q5min are as documented. Pt will be going to ICU, waiting food safety scientist at this time.
[2023-02-13] MEDS: Lactated Ringers 1,000 ML 150 ML IVCONT (22:59)
--- NOTE | 2023-02-13 23:12 | PM.CCHP ---
History of Present Illness Date of Service: 02/13/23 Attending physician on admission: Jermain Chicas Chief Complaint: SEPTIC SHOCK / OBSTRUCTIVE UROPATHY HPI: ?67-year-old patient with underlying history of coronary disease status post 2 stents about 10 years ago, hypertension, hyperlipidemia, vitamin-D deficiency, GERD, chronic joint and back pain due to lumbar spinal stenosis among other things, presents to us after being seen in the emergency room last night due to complaints of flank pain. ?Patient reported to be COVID positive which was diagnosed 10 days ago, had presented to with complaints of nausea, vomiting, diarrhea and bilateral flank pain since yesterday, according to her her pain is 10/10 but it does not feel that is coming from her chronic back pain as it feels different, more on the flanks, 10/10, nonradiating, associated with the above-mentioned symptoms, nothing has made it better worse in spite of trying to take naproxen for her pain. ? In the ER, the patient was noted to be hypotensive, tachycardic however afebrile, her overall workup reveal white count of 12.8, H&H of 12.5 and 36.5 respectively, platelets 218, 21% bands, sodium 137, potassium 4.2, chloride 106, carbon dioxide 17, anion gap 18, BUN 42, creatinine 1.94.? Initial lactic acid 3.8, has however come down to 3.6, magnesium 1.0.? BNP 260, troponin 34.5, 46.6, albumin 3.2. Venous blood gas shows pH of 7.38, pCO2 31, P 0 244, HC03 19. Urinalysis shows proteinuria, hematuria, positive nitrates with large amount of leukocyte esterases, more than 50 white blood cells and no epithelial cells. ? Patient receive 30 mL/kg of IV fluids, started on antibiotics, troponin was recycle given her underlying history of coronary disease but it did not show any significant increase.? She did receive some IV magnesium and was started on Levophed given the lack of of improvement of her blood pressure with IV fluids. Currently patient still complains of pain despite of fentanyl given earlier, denies any other associated symptoms despite the above mentioned.? Patient will be transferred to ICU for further care. ? ROS:? Refuses due to pain ? Past Medical History:? As above ? Past Surgical History: HEART STENTS X 2 ? Family history:? Noncontributory ? Social History:? PATIENT DENIES ANY HISTORY OF ALCOHOL, TOBACCO OR DRUG USE EVER. ? CODE STATUS: FULL CODE ? Allergies: Atenolol (cough); adhesive (rash) ? Home Medications: See Med Rec ? SEPSIS EXAM DONE AT 2300 VS: ?8251, 108, 24, 93%, 97. 6 F General:? Alert oriented x3 appears in mild distress.? Speaking full sentences.? Speech is well articulated, thought process is coherent.? Following all commands. Skin:? Intact, no lesions, edema, erythema, clubbing or cyanosis.? No ulcers. HEENT:? Head is normocephalic, atraumatic, pupils equal round reactive to light accommodation bilaterally.? Extraocular movements appear intact.? Buccal mucosa is dry. Neck is supple without lymphadenopathy. Cardiac:? Tachycardic 110 beats per minute.? No murmurs, rubs, gallops Pulmonary:? Clear to auscultation, no wheezes, rales or rhonchi. Abdomen:? Protuberant, positive bowel sounds in all 4 quadrants.? Soft, nontender, no rebound or guarding.? And there is however CVA tenderness on the left more than the right. Musculoskeletal:? Moving all 4 extremities upon request a major joints, there is no crepitus or tenderness.? The strength is 5/5 bilaterally and throughout all 4 extremities.? There is no leg edema , no calf tenderness , no leg asymmetry.? Neurologic:? As above. No focal deficits noted. Vascular:? 2+ pulses upper and lower extremities distally. ?Capillary refill less than 2 seconds of the finger and toes bilaterally upper and lower extremities. ? SIGNIFICANT LABORATORY DATA:? As above ? REVIEW OF IMAGES: ? CT/CT abdomen pelvis wo IV con IMPRESSION: 3 mm obstructing proximal left ureteral calculus with mild hydro nephrosis and marked perinephric stranding presumably secondary to forniceal rupture. There is at least one other no obstructing left intrarenal calculus. Incidentally noted hepatic steatosis. CXR IMPRESSION: Left basilar atelectasis ? EKG REVIEW: Sinus tachycardia [address] elevation or depressions. QTc 453ms. ? ASSESSMENT : 1. Acute Septic Shock 2. Left Obstructive Uropathy 3. UTI 4. CESAR due to # 2, hypo-perfussion, vol depletion and (naproxen) 5. Severe Hypomagnesemia 6. Trop Abnormality likely reactive to illness not ACS 7. Hypoalbumenemia 8. Lactic and Metabolic Acidosis due to above 9. Covid (+) infection 10. Protenuria ? PLAN OF CARE: Patient will be admitted to the ICU, will continue with IV fluids as she appears to be quite dehydrated despite of the fluids given in the ER, Mohr catheter, monitor I&Os, vital signs per protocol, place her on Levophed and titrate to a map of 65-70, urology has been consulted and they are aware of the patient's current condition. ?I will give her IV bicarbonate and albumin. ?Will recheck laboratories in the morning.? Continues to replete his electrolytes and give her albumin.? Will continue with Zosyn renally adjusted doses and droplet precautions. At this point the patient has adequate IV access including a 18 gauge therefore I do not think is necessary to place a central line now. Hold Nephrotoxins. ? GI PROPHYLAXIS: ?IV ppi DVT PROPHYLAXIS:? Heparin every 12 hours ? Clinical update and focused sepsis exam done at 03:00 on 02/14/2023 ? Alert and oriented x3 no acute distress.? Sleeping comfortably. Skin no changes. Heart regular rate and rhythm no murmurs, rubs, gallops Lungs clear to auscultation bilaterally no wheezes rales or rhonchi Abdomen protuberant positive bowel sounds, soft, nontender, CVA tenderness no longer present.? Patient under the influence of Dilaudid. Musculoskeletal moving all 4 extremities without crepitus or discomfort.? No edema. Vascular 2+ pulses bilaterally and distally of upper and lower extremities. ?Capillary refill less than 2 seconds of the finger and toes bilaterally upper and lower extremities. ? Critical care time used for critical evaluation of this patient, diagnosis, treatment and coordination of care, review her records and documentation TOTAL CRITICAL CARE TIME 90 MIN; discussion and coordination with consultants, completely separate from any procedures performed. Patient's care was discussed in detail with Dr. Chicas.? He is aware of all the above as well as the plan of care for this patient. [facility] Social History Social History Household Members: Family Housing: House Do you presently have visiting nurse or other home services: No Alcohol intake: never Patient Tobacco Use Status: Never used Tobacco Smoked in Last 30 Days: No e-Cigarette/Vaping Use: Never Used Patient Interested in Nicotine Replacement: No Patient Given Instructions on How to Stop Smoking: No Second Hand Smoke Exposure: No Use of substances other than those prescribed or required for medical reasons: No Currently Displaying Signs/Symptoms of Drug Intoxication Withdrawal: No Any prior treatment program specific to substance use: No Have you been hit, kicked, punched, or otherwise hurt by someone within the past year? If so, by whom?: No Do you feel safe in your current relationship?: No Current Relationship Is there a partner from a previous relationship who is making you feel unsafe now?: No Advance Directives: No Advance Directives Information Provided: No Advance Directives on File: No Do you have thoughts of harming others: None Do you have a plan to hurt others: No Plan Recently lost weight without trying: No Nutrition Risks: No Nutritional Risk Patient : No : No Poor oral hygiene: No service: No Meds Allergies Allergy/AdvReac Type Severity Reaction Status Date / Time atenolol [ATENOLOL] Allergy Unknown COUGH Verified 02/13/23 18:49 ADHESIVE BANDAGE Allergy Unknown RASH Uncoded 06/11/20 15:51 Active Medications: Current Medications Heparin Sodium (Porcine) (Heparin Sodium,Porcine 5,000 Unit/Ml Vial) 5,000 unit SUBCUT Q12H LIBAN Norepinephrine Bitartrate (Levophed) 8 mg in 250 mls @ 0 mls/hr IV .Q0M LIBAN; Protocol Last Titration: 02/13/23 23:10 Dose: 0.19 mcg/kg/min, 25.83 mls/hr Sodium Chloride (Ns) 2,175 mls @ 2,175 mls/hr 30 ml/kg infuse over 1 hr (2175 ml) IV .Q1H STA Stop: 02/13/23 23:19 Last Admin: 02/13/23 22:34 Dose: 2,175 mls/hr Lactated Ringer's (Lr) 1,000 mls @ 150 mls/hr IVCONT .Q6H40M LIBAN Last Admin: 02/13/23 22:59 Dose: 150 mls/hr Magnesium Sulfate (Magnesium Sulfate/H2o) 2 gm in 50 mls @ 25 mls/hr IV ONCE ONE Stop: 02/14/23 00:52 Pharmacy Consult (Consult Rx Perform Med Rec) 1 each MISCELLANE ONCE PRN PRN Reason: Consult order Home Medications Medication Instructions Recorded Confirmed Last Taken Type amlodipine 10 mg tablet 10 mg PO DAILY 02/13/23 02/13/23 Unknown History atorvastatin 40 mg tablet 40 mg PO DAILY 02/13/23 02/13/23 Unknown History cholecalciferol (vitamin D3) 50 50 mcg PO DAILY 02/13/23 02/13/23 Unknown History mcg (2,000 unit) capsule losartan 100 mg tablet 100 mg PO DAILY 02/13/23 02/13/23 Unknown History metoprolol succinate 100 mg 100 mg PO DAILY 02/13/23 02/13/23 Unknown History tablet,extended release 24 hr naproxen 500 mg tablet 500 mg PO BIDWM 02/13/23 02/13/23 Unknown History omeprazole 20 mg capsule,delayed 20 mg PO DAILY@0630 02/13/23 02/13/23 Unknown History release Physical Exam Vital Signs: Vital Signs: Last Vital Signs Temp 97.6 F 02/13/23 22:12 Pulse 106 H 02/13/23 23:10 Resp 24 H 02/13/23 22:52 BP 87/56 L 02/13/23 23:10 Pulse Ox 93 02/13/23 22:52 O2 Del Method Room Air 02/13/23 22:52 BMI result Body Mass Index 30.2 Results Labs 02/13/23 18:45 02/13/23 18:45 Labs: Laboratory Results - last 24 hr 02/13/23 02/13/23 02/13/23 18:45 18:45 18:45 MCV 89.2 MCH 30.6 MCHC 34.2 RDW 13.1 Plt Count 218 MPV 10.1 Immature Gran % (Auto) Cancelled Neut % (Auto) Cancelled Lymph % (Auto) Cancelled Steele % (Auto) Cancelled Eos % (Auto) Cancelled Baso % (Auto) Cancelled Lymph # (Auto) Cancelled Steele # (Auto) Cancelled Eos # (Auto) Cancelled Baso # (Auto) Cancelled Abs Immat Gran (auto) Cancelled Absolute Neuts (auto) Cancelled Absolute Nucleated RBC 0.000 Nucleated RBC % (auto) 0.0 Neutrophils % (Manual) 64 Band Neutrophils % 21 H Lymphocytes % (Manual) 6 L Monocytes % (Manual) 3 Metamyelocytes % 5 Myelocytes % 1 Abs Neuts (Manual) 10.9 H Lymphocytes # (Manual) 0.8 L Monocytes # (Manual) 0.4 Metamyelocytes # 0.6 Myelocytes # 0.1 Platelet Estimate NORMAL Large Platelets PRESENT Plt Morphology Comment NOTED RBC Morphology NORMAL VBG pH VBG pCO2 VBG pO2 VBG HCO3 VBG O2 Saturation VBG Base Excess Anion Gap 18 Estim Creat Clear Calc 25.6 Estimated GFR 26 Random Glucose 107 Lactic Acid Lactic Acid F/U @ 2Hr Calcium 8.5 Magnesium 1.0 L* Total Bilirubin 0.8 AST 20 ALT 27 Alkaline Phosphatase 75 Troponin I High Sens B-Natriuretic Peptide 260 H Total Protein 5.7 L Albumin 3.2 L Lipase 12 Urine Color Urine Appearance Urine pH Ur Specific Treynor Urine Protein Urine Glucose (UA) Urine Ketones Urine Blood Urine Nitrite Ur Leukocyte Esterase Urine RBC Urine WBC Ur Squamous Epith Cells Urine Bacteria Hyaline Casts COVID-19 ([facility]) COVID-19 Clin Com 02/13/23 02/13/23 02/13/23 18:51 18:53 18:53 MCV MCH MCHC RDW Plt Count MPV Immature Gran % (Auto) Neut % (Auto) Lymph % (Auto) Steele % (Auto) Eos % (Auto) Baso % (Auto) Lymph # (Auto) Steele # (Auto) Eos # (Auto) Baso # (Auto) Abs Immat Gran (auto) Absolute Neuts (auto) Absolute Nucleated RBC Nucleated RBC % (auto) Neutrophils % (Manual) Band Neutrophils % Lymphocytes % (Manual) Monocytes % (Manual) Metamyelocytes % Myelocytes % Abs Neuts (Manual) Lymphocytes # (Manual) Monocytes # (Manual) Metamyelocytes # Myelocytes # Platelet Estimate Large Platelets Plt Morphology Comment RBC Morphology VBG pH VBG pCO2 VBG pO2 VBG HCO3 VBG O2 Saturation VBG Base Excess Anion Gap Estim Creat Clear Calc Estimated GFR Random Glucose Lactic Acid 3.8 H* Lactic Acid F/U @ 2Hr Calcium Magnesium Total Bilirubin AST ALT Alkaline Phosphatase Troponin I High Sens 34.5 H B-Natriuretic Peptide Total Protein Albumin Lipase Urine Color Urine Appearance Urine pH Ur Specific Treynor Urine Protein Urine Glucose (UA) Urine Ketones Urine Blood Urine Nitrite Ur Leukocyte Esterase Urine RBC Urine WBC Ur Squamous Epith Cells Urine Bacteria Hyaline Casts COVID-19 (CHARITY) Positive A COVID-19 Clin Com See Note 02/13/23 02/13/23 02/13/23 20:23 20:33 21:27 MCV MCH MCHC RDW Plt Count MPV Immature Gran % (Auto) Neut % (Auto) Lymph % (Auto) Steele % (Auto) Eos % (Auto) Baso % (Auto) Lymph # (Auto) Steele # (Auto) Eos # (Auto) Baso # (Auto) Abs Immat Gran (auto) Absolute Neuts (auto) Absolute Nucleated RBC Nucleated RBC % (auto) Neutrophils % (Manual) Band Neutrophils % Lymphocytes % (Manual) Monocytes % (Manual) Metamyelocytes % Myelocytes % Abs Neuts (Manual) Lymphocytes # (Manual) Monocytes # (Manual) Metamyelocytes # Myelocytes # Platelet Estimate Large Platelets Plt Morphology Comment RBC Morphology VBG pH 7.38 VBG pCO2 31 VBG pO2 44 VBG HCO3 19 L VBG O2 Saturation 73.0 VBG Base Excess -4.8 Anion Gap Estim Creat Clear Calc Estimated GFR Random Glucose Lactic Acid Lactic Acid F/U @ 2Hr 4.1 H* Calcium Magnesium Total Bilirubin AST ALT Alkaline Phosphatase Troponin I High Sens B-Natriuretic Peptide Total Protein Albumin Lipase Urine Color Yellow Urine Appearance Cloudy Urine pH 5.5 Ur Specific Treynor 1.015 Urine Protein 100 (2+) H Urine Glucose (UA) Negative Urine Ketones Negative Urine Blood Moderate (2+) H Urine Nitrite Positive H Ur Leukocyte Esterase Large (3+) H Urine RBC 11-20 H Urine WBC >50 H Ur Squamous Epith Cells 0-2 Urine Bacteria 4+ Hyaline Casts 11-20 COVID-19 (CHARITY) COVID-19 Clin Com 02/13/23 21:27 MCV MCH MCHC RDW Plt Count MPV Immature Gran % (Auto) Neut % (Auto) Lymph % (Auto) Steele % (Auto) Eos % (Auto) Baso % (Auto) Lymph # (Auto) Steele # (Auto) Eos # (Auto) Baso # (Auto) Abs Immat Gran (auto) Absolute Neuts (auto) Absolute Nucleated RBC Nucleated RBC % (auto) Neutrophils % (Manual) Band Neutrophils % Lymphocytes % (Manual) Monocytes % (Manual) Metamyelocytes % Myelocytes % Abs Neuts (Manual) Lymphocytes # (Manual) Monocytes # (Manual) Metamyelocytes # Myelocytes # Platelet Estimate Large Platelets Plt Morphology Comment RBC Morphology VBG pH VBG pCO2 VBG pO2 VBG HCO3 VBG O2 Saturation VBG Base Excess Anion Gap Estim Creat Clear Calc Estimated GFR Random Glucose Lactic Acid Lactic Acid F/U @ 2Hr Calcium Magnesium Total Bilirubin AST ALT Alkaline Phosphatase Troponin I High Sens 46.6 H B-Natriuretic Peptide Total Protein Albumin Lipase Urine Color Urine Appearance Urine pH Ur Specific Treynor Urine Protein Urine Glucose (UA) Urine Ketones Urine Blood Urine Nitrite Ur Leukocyte Esterase Urine RBC Urine WBC Ur Squamous Epith Cells Urine Bacteria Hyaline Casts COVID-19 (CHARITY) COVID-19 Clin Com Imaging Radiologist's Impressions: Impressions Abdomen/Pelvis CT 02/13/23 19:15 IMPRESSION: 3 mm obstructing proximal left ureteral calculus with mild hydronephrosis and marked perinephric stranding presumably secondary to forniceal rupture. There is at least one other nonobstructing left intrarenal calculus. Incidentally noted hepatic steatosis. Fleischner guidelines were followed. Chest X-Ray 02/13/23 19:25 IMPRESSION: Left basilar atelectasis Assessment and Plan Time Spent With Patient Time: Total time managing care of this patient today ____ minutes.
--- NOTE | 2023-02-13 23:13 | W.PM.CCHP ---
Procedures Date of Service Date of Service: 02/13/23 Central Line Placement Right IJ: Central Line Comments: A quick time-out was made for clarification and proper patient identification, patient was positioned, landmarks were identified, US used to locate a? large compressible IJ.? The right neck was widely prepped and draped in a full sterile fashion.? Ultrasound was used to locate again the right IJ, the vein was cannulated on the 1st pass with an 18 gauge thin needle, dark nonpulsatile blood return was obtained.? The wire was threaded, a small incision was made at its base and dilator inserted. A16cm triple-lumen central venous catheter was advanced into the vein up to the hub without problems, wired was removed. Ports had? good blood return and flushed x3.? The catheter was secured with 3 sutures at 3 sites, a Biopatch and dry sterile dressing were applied. Post procedure chest x-ray showed the line to be in good position without pneumothorax.? No bleeding or complications noted.
--- NOTE | 2023-02-13 23:17 | PC.NURSE ---
Pt BP 95/49. MAP is 59. Spoke with Toma who said to keep rate where it is.
[2023-02-13 23:31] LABS: Reflex Lactate? 2 Y
[2023-02-13] MEDS: Heparin Sodium,Porcine 5,000 UNIT/ML VIAL 5000 UNIT SUBCUT (23:33)
[2023-02-14] VITALS (54 sets, daily range): BP systolic 78–158; BP diastolic 45–124; PULSE 97–127; RESP 15–30; TEMP 37.3–38.2; O2SAT 90–94; BMI 32.8; BMI 34.0
[2023-02-14] MEDS: HYDROmorphone HCl 1 MG/ML SYRINGE IVPUSH (00:10)
--- NOTE | 2023-02-14 00:13 | PC.NURSE ---
Handover given to Kong RN in person. Pt transferred to ICU bed and equipment.
[2023-02-14 00:30] LABS: ~Lactic Acid-LAB USE ONLY 3.6 mmol/L (0.5-2.0)
[2023-02-14] MEDS: ondansetron HCL 4 MG/2 ML VIAL IVPUSH ×4 (01:20→18:35)
[2023-02-14] MEDS: Albumin Human 25 % 100 ML 200 ML IV ×2 (02:48→04:09)
[2023-02-14] MEDS: Piperacillin Sodium/Tazobactam 2.25 GM in 0.9 % Sodium Chloride 50 ML IV ×4 (02:48→21:31)
[2023-02-14] MEDS: Lactated Ringers 1,000 ML 150 ML IVCONT (02:49)
[2023-02-14] MEDS: Norepinephrine Bitartrate/D5W 8 MG/250 ML PLAST..BAG 62.53 MG IV (02:49)
[2023-02-14] MEDS: Sodium Bicarbonate 8.4% 50 MEQ/50 ML SYRINGE 100 MEQ IVPUSH (02:50)
[2023-02-14] MEDS: HYDROmorphone HCl 0.5 MG/0.5 ML SYRINGE IVPUSH ×3 (04:00→16:16)
--- NOTE | 2023-02-14 04:25 | PC.NURSE ---
ADMIT TO 252-1 APPROX 23:45ALERT..ORIENTED X3..SPEECH CLEAR...NSR/S.TACH..PERIPHERAL LEVOPHED 0.25 MCG/KG/MIN AT ADMISSION AND LR 150 CC/HR...SBP 80'S....C/O URGE TO VOID..VOIDED APPROX 75 CC WITH CONTINUED URGE TO VOID...BRODY PLACED PER ICU PA WITH 300 CC PALE YELLOW URINE ON INSERTION...LEVOPHED TITRATED TO 0.48 MCG/KG/MIN...ZOSYN AND ALBUMEN 25G 100ML X2 PER NOV.....MEDICATED WITH DILAUDID PER MAR AT ADMIT FOR C/O 9/10 BACK AND FLANK PAIN...PER REPORT PATIEMT HAS OBSTRUCTIVE KIDNEY STONE..ZOFRAN X1 FOR NAUSEA (NO EMESIS) WITH EFFECT...REPEAT DILAUDID THIS AM FOR FLANK PAIN WITH REKIEF..DENIES NAUSEA SINCE ZOFRAN...NPO EXCEPT FOR ICE CHIPS PER ICU PA...DR ALEXANDER TO SEE PATIENT IN AM PER ER REPORT
[2023-02-14 05:33] LABS: Hemoglobin 9.6 g/dl (12.0-16.0); Mean Corpuscular HGB Conc 33.1 g/dl (31.0-35.0); Mean Corpuscular Hemoglobin 30.2 pg (27.0-33.0); Mean Corpuscular Volume 91.2 fL (80.0-98.0); Platelet Count 164 X10*3/uL (160-400); Red Blood Count 3.18 X10*6/uL (4.20-5.50); Red Cell Distribution Width 13.4 % (11.0-16.0)
[2023-02-14 05:42] LABS: WBC ABN SCTR FOR CBC 1; White Blood Count 13.6 X10*3/uL (4.8-10.8)
[2023-02-14 05:50] LABS: Magnesium 2.1 mg/dL (1.6-2.6); Phosphorus 4.1 mg/dL (2.7-4.5)
[2023-02-14 05:57] LABS: Band Neutrophils Percent 27 % (3-5); Lymphocytes Absolute Manual 0.4 X10*3/uL (1.2-4.9); Lymphocytes Percent Manual 3 % (20-40); Metamyelocytes Absolute 0.4 X10*3/uL; Metamyelocytes Percent 3 %; Monocytes Absolute Manual 0.3 X10*3/uL (0.1-1.2); Monocytes Percent Manual 2 % (2-11); Myelocytes Absolute 0.3 X10*/uL; Myelocytes Percent 2 %; Neutrophils Absolute Manual 12.2 X10*3/uL (2.0-8.3); Neutrophils Percent Manual 63 % (45-73)
[2023-02-14 05:58] LABS: RBC Morphology NOTED
[2023-02-14 05:59] LABS: Burr Cells 1+ (0-2) /OIF; Dohle Bodies PRESENT; Platelet Estimate NORMAL (NORMAL)
[2023-02-14 06:00] LABS: Platelet Morphology Comment NORMAL
[2023-02-14 06:02] LABS: Lactic Acid 3.9 mmol/L (0.5-2.0); Troponin-I High Sensitivity 52.2 ng/L (<3.5-17.0)
[2023-02-14] MEDS: Norepinephrine Bitartrate/D5W 8 MG/250 ML PLAST..BAG 65.25 MG IV (06:02)
[2023-02-14] MEDS: Pantoprazole Sodium 40 MG/10 ML VIAL IVPUSH (06:03)
[2023-02-14 06:04] LABS: VBG Base Excess -1.1 mmol/L; VBG HCO3 23 mmol/L (22-26); VBG pCO2 37 mmHg; VBG pH 7.39 (7.32-7.43); VBG pO2 53 mmHg
[2023-02-14 06:07] LABS: Venous Blood Gas Refer to POC result
[2023-02-14 07:05] LABS: Alanine Aminotransferase 27 U/L (0-31); Albumin Level 3.4 g/dL (3.5-5.0); Alkaline Phosphatase 61 U/L (39-117); Anion Gap 17 (12-20); Aspartate Amino Transferase 23 U/L (5-31); Bilirubin Total 0.6 mg/dL (0.0-1.0); Blood Urea Nitrogen 33 mg/dL (9-16); Calcium 7.5 mg/dL (8.4-10.2); Carbon Dioxide 19 mmol/L (22-29); Chloride 108 mmol/L (96-108); Creatinine Clr Calc Pharmacy 35.4; Estimated Glomerular Filt Rate 35; Glucose Random 140 mg/dL (60-115); Potassium 3.6 mmol/L (3.3-5.1); Sodium 140 mmol/L (135-145); Total Protein 5.1 g/dL (6.5-8.0)
[2023-02-14 07:27] LABS: Reflex Lactate? Lactic Acid Added
[2023-02-14] MEDS: Heparin Sodium,Porcine 5,000 UNIT/ML VIAL 5000 UNIT SUBCUT ×2 (08:05→21:46)
[2023-02-14] MEDS: fentaNYL citrate/PF 100 MCG/2 ML VIAL 50 MCG IVPUSH ×5 (08:23→23:44)
[2023-02-14] MEDS: Midazolam HCl/PF 2 MG/2 ML VIAL 1.5 MG IVPUSH (08:23)
[2023-02-14 08:26] LABS: ~Lactic Acid-LAB USE ONLY 3.4 mmol/L (0.5-2.0)
[2023-02-14] MEDS: Albumin Human 25 % 100 ML IV ×3 (08:39→21:46)
--- NOTE | 2023-02-14 09:39 | MHC.CM.PN ---
Pt resides w/sister and is independent with all care needs. No services or DME: HCP copy requested - IMM in chart. Sister to transport to home. CM to follow.
[2023-02-14] MEDS: Norepinephrine Bitartrate/D5W 8 MG/250 ML PLAST..BAG 59.81 MG IV (09:44)
--- NOTE | 2023-02-14 09:57 | W.PM.CCHP ---
Procedures Date of Service Date of Service: 02/14/23 Central Line Placement Right IJ: Central Line Comments: After obtaining informed consent right internal jugular triple-lumen central venous catheter placed for vasopressor support under ultrasound guidance and usual sterile conditions with no immediate complications. Line position verified by chest x-ray.
--- NOTE | 2023-02-14 09:59 | P.PNCC_ITS ---
Subjective Subjective Date of Service: 02/14/23 Interval History: 67-year-old lady with underlying history of CAD, hypertension GERD, spinal stenosis admitted on 02/13/2023 with flank pain and hypotension refractory to initial IV fluid support secondary to obstructive left renal calculus with mild hydronephrosis with gram-negative bacteremia. Patient was started on broad- spectrum antibiotics and admitted to the intensive care unit. Of note, patient is COVID positive for approximately 10 days prior to admission. No events overnight. Critical Care Time (minutes): 45 Physical Exam Vital Signs: Vital Signs: Last Vital Signs Temp 99.7 F 02/14/23 09:00 Pulse 120 H 02/14/23 09:50 Resp 17 02/14/23 09:00 BP 117/71 02/14/23 09:50 Pulse Ox 92 02/14/23 09:00 O2 Del Method Nasal Cannula 02/14/23 09:00 O2 Flow Rate 5 02/14/23 09:00 BMI result Body Mass Index 34.0 Const: General: no acute distress, alert and awake Eyes: Sclerae: sclerae normal EOM: EOMs intact bilaterally Neck: Neck: Yes no lymphadenopathy, Yes trachea midline and Yes supple Resp: Effort & Inspection: normal respiratory effort and no respiratory distress Auscultation: clear to auscultation bilaterally Cardio: Rate: tachycardic Rhythm: regular rhythm Heart sounds: no gallops, no murmurs and no rubs GI: Palpation (GI): Soft to palpation and Other GI palpation findings present ( Nontender) Auscultation: normal bowel sounds Extrem: General: Yes no pedal edema, No clubbing and No cyanosis Objective Data Labs 02/14/23 05:17 02/14/23 05:17 Labs: Laboratory Results - last 24 hr 02/13/23 02/13/23 02/13/23 18:45 18:45 18:45 WBC 12.8 H RBC 4.09 L Hgb 12.5 Hct 36.5 L MCV 89.2 MCH 30.6 MCHC 34.2 RDW 13.1 Plt Count 218 MPV 10.1 Immature Gran % (Auto) Cancelled Neut % (Auto) Cancelled Lymph % (Auto) Cancelled Archer % (Auto) Cancelled Eos % (Auto) Cancelled Baso % (Auto) Cancelled Lymph # (Auto) Cancelled Archer # (Auto) Cancelled Eos # (Auto) Cancelled Baso # (Auto) Cancelled Abs Immat Gran (auto) Cancelled Absolute Neuts (auto) Cancelled Absolute Nucleated RBC 0.000 Nucleated RBC % (auto) 0.0 Neutrophils % (Manual) 64 Band Neutrophils % 21 H Lymphocytes % (Manual) 6 L Monocytes % (Manual) 3 Metamyelocytes % 5 Myelocytes % 1 Abs Neuts (Manual) 10.9 H Lymphocytes # (Manual) 0.8 L Monocytes # (Manual) 0.4 Metamyelocytes # 0.6 Myelocytes # 0.1 Dohle Bodies Platelet Estimate NORMAL Large Platelets PRESENT Plt Morphology Comment NOTED RBC Morphology NORMAL [place] Cells VBG pH VBG pCO2 VBG pO2 VBG HCO3 VBG O2 Saturation VBG Base Excess Sodium 137 Potassium 4.2 Chloride 106 Carbon Dioxide 17 L Anion Gap 18 BUN 42 H Creatinine 1.94 H Estim Creat Clear Calc 25.6 Estimated GFR 26 Random Glucose 107 Lactic Acid Lactic Acid F/U @ 2Hr Lactic Acid F/U @ 4Hr Calcium 8.5 Phosphorus Magnesium 1.0 L* Total Bilirubin 0.8 AST 20 ALT 27 Alkaline Phosphatase 75 Troponin I High Sens B-Natriuretic Peptide 260 H Total Protein 5.7 L Albumin 3.2 L Lipase 12 Urine Color Urine Appearance Urine pH Ur Specific Wagner Urine Protein Urine Glucose (UA) Urine Ketones Urine Blood Urine Nitrite Ur Leukocyte Esterase Urine RBC Urine WBC Ur Squamous Epith Cells Urine Bacteria Hyaline Casts COVID-19 (CHARITY) COVID-19 Clin Com 02/13/23 02/13/23 02/13/23 18:51 18:53 18:53 WBC RBC Hgb Hct MCV MCH MCHC RDW Plt Count MPV Immature Gran % (Auto) Neut % (Auto) Lymph % (Auto) Archer % (Auto) Eos % (Auto) Baso % (Auto) Lymph # (Auto) Archer # (Auto) Eos # (Auto) Baso # (Auto) Abs Immat Gran (auto) Absolute Neuts (auto) Absolute Nucleated RBC Nucleated RBC % (auto) Neutrophils % (Manual) Band Neutrophils % Lymphocytes % (Manual) Monocytes % (Manual) Metamyelocytes % Myelocytes % Abs Neuts (Manual) Lymphocytes # (Manual) Monocytes # (Manual) Metamyelocytes # Myelocytes # Dohle Bodies Platelet Estimate Large Platelets Plt Morphology Comment RBC Morphology Bambi Cells VBG pH VBG pCO2 VBG pO2 VBG HCO3 VBG O2 Saturation VBG Base Excess Sodium Potassium Chloride Carbon Dioxide Anion Gap BUN Creatinine Estim Creat Clear Calc Estimated GFR Random Glucose Lactic Acid 3.8 H* Lactic Acid F/U @ 2Hr Lactic Acid F/U @ 4Hr Calcium Phosphorus Magnesium Total Bilirubin AST ALT Alkaline Phosphatase Troponin I High Sens 34.5 H B-Natriuretic Peptide Total Protein Albumin Lipase Urine Color Urine Appearance Urine pH Ur Specific Wagner Urine Protein Urine Glucose (UA) Urine Ketones Urine Blood Urine Nitrite Ur Leukocyte Esterase Urine RBC Urine WBC Ur Squamous Epith Cells Urine Bacteria Hyaline Casts COVID-19 (CHARITY) Positive A COVID-19 Clin Com See Note 02/13/23 02/13/23 02/13/23 20:23 20:33 21:27 WBC RBC Hgb Hct MCV MCH MCHC RDW Plt Count MPV Immature Gran % (Auto) Neut % (Auto) Lymph % (Auto) Archer % (Auto) Eos % (Auto) Baso % (Auto) Lymph # (Auto) Archer # (Auto) Eos # (Auto) Baso # (Auto) Abs Immat Gran (auto) Absolute Neuts (auto) Absolute Nucleated RBC Nucleated RBC % (auto) Neutrophils % (Manual) Band Neutrophils % Lymphocytes % (Manual) Monocytes % (Manual) Metamyelocytes % Myelocytes % Abs Neuts (Manual) Lymphocytes # (Manual) Monocytes # (Manual) Metamyelocytes # Myelocytes # Dohle Bodies Platelet Estimate Large Platelets Plt Morphology Comment RBC Morphology [place] Cells VBG pH 7.38 VBG pCO2 31 VBG pO2 44 VBG HCO3 19 L VBG O2 Saturation 73.0 VBG Base Excess -4.8 Sodium Potassium Chloride Carbon Dioxide Anion Gap BUN Creatinine Estim Creat Clear Calc Estimated GFR Random Glucose Lactic Acid Lactic Acid F/U @ 2Hr 4.1 H* Lactic Acid F/U @ 4Hr Calcium Phosphorus Magnesium Total Bilirubin AST ALT Alkaline Phosphatase Troponin I High Sens B-Natriuretic Peptide Total Protein Albumin Lipase Urine Color Yellow Urine Appearance Cloudy Urine pH 5.5 Ur Specific Wagner 1.015 Urine Protein 100 (2+) H Urine Glucose (UA) Negative Urine Ketones Negative Urine Blood Moderate (2+) H Urine Nitrite Positive H Ur Leukocyte Esterase Large (3+) H Urine RBC 11-20 H Urine WBC >50 H Ur Squamous Epith Cells 0-2 Urine Bacteria 4+ Hyaline Casts 11-20 COVID-19 (CHARITY) COVID-19 [employer] (Wayin) 02/13/23 02/14/23 02/14/23 21:27 00:07 05:17 WBC 13.6 H RBC 3.18 L D Hgb 9.6 L D Hct 29.0 L D MCV 91.2 MCH 30.2 MCHC 33.1 RDW 13.4 Plt Count 164 MPV 10.0 Immature Gran % (Auto) Cancelled Neut % (Auto) Cancelled Lymph % (Auto) Cancelled Archer % (Auto) Cancelled Eos % (Auto) Cancelled Baso % (Auto) Cancelled Lymph # (Auto) Cancelled Archer # (Auto) Cancelled Eos # (Auto) Cancelled Baso # (Auto) Cancelled Abs Immat Gran (auto) Cancelled Absolute Neuts (auto) Cancelled Absolute Nucleated RBC 0.000 Nucleated RBC % (auto) 0.0 Neutrophils % (Manual) 63 Band Neutrophils % 27 H Lymphocytes % (Manual) 3 L Monocytes % (Manual) 2 Metamyelocytes % 3 Myelocytes % 2 Abs Neuts (Manual) 12.2 H Lymphocytes # (Manual) 0.4 L Monocytes # (Manual) 0.3 Metamyelocytes # 0.4 Myelocytes # 0.3 Dohle Bodies PRESENT Platelet Estimate NORMAL Large Platelets Plt Morphology Comment NORMAL RBC Morphology NOTED Bambi Cells 1+ (0-2) VBG pH VBG pCO2 VBG pO2 VBG HCO3 VBG O2 Saturation VBG Base Excess Sodium Potassium Chloride Carbon Dioxide Anion Gap BUN Creatinine Estim Creat Clear Calc Estimated GFR Random Glucose Lactic Acid Lactic Acid F/U @ 2Hr Lactic Acid F/U @ 4Hr 3.6 H* Calcium Phosphorus Magnesium Total Bilirubin AST ALT Alkaline Phosphatase Troponin I High Sens 46.6 H B-Natriuretic Peptide Total Protein Albumin Lipase Urine Color Urine Appearance Urine pH Ur Specific Wagner Urine Protein Urine Glucose (UA) Urine Ketones Urine Blood Urine Nitrite Ur Leukocyte Esterase Urine RBC Urine WBC Ur Squamous Epith Cells Urine Bacteria Hyaline Casts COVID-19 (CHARITY) COVID-19 [employer] (Wayin) 02/14/23 02/14/23 02/14/23 05:17 05:17 05:17 WBC RBC Hgb Hct MCV MCH MCHC RDW Plt Count MPV Immature Gran % (Auto) Neut % (Auto) Lymph % (Auto) Archer % (Auto) Eos % (Auto) Baso % (Auto) Lymph # (Auto) Archer # (Auto) Eos # (Auto) Baso # (Auto) Abs Immat Gran (auto) Absolute Neuts (auto) Absolute Nucleated RBC Nucleated RBC % (auto) Neutrophils % (Manual) Band Neutrophils % Lymphocytes % (Manual) Monocytes % (Manual) Metamyelocytes % Myelocytes % Abs Neuts (Manual) Lymphocytes # (Manual) Monocytes # (Manual) Metamyelocytes # Myelocytes # Dohle Bodies Platelet Estimate Large Platelets Plt Morphology Comment RBC Morphology Bambi Cells VBG pH VBG pCO2 VBG pO2 VBG HCO3 VBG O2 Saturation VBG Base Excess Sodium 140 Potassium 3.6 Chloride 108 Carbon Dioxide 19 L Anion Gap 17 BUN 33 H Creatinine 1.49 H Estim Creat Clear Calc 35.4 Estimated GFR 35 Random Glucose 140 H Lactic Acid 3.9 H* Lactic Acid F/U @ 2Hr Lactic Acid F/U @ 4Hr Calcium 7.5 L D Phosphorus 4.1 Magnesium 2.1 Total Bilirubin 0.6 AST 23 ALT 27 Alkaline Phosphatase 61 Troponin I High Sens 52.2 H* B-Natriuretic Peptide Total Protein 5.1 L Albumin 3.4 L Lipase Urine Color Urine Appearance Urine pH Ur Specific Wagner Urine Protein Urine Glucose (UA) Urine Ketones Urine Blood Urine Nitrite Ur Leukocyte Esterase Urine RBC Urine WBC Ur Squamous Epith Cells Urine Bacteria Hyaline Casts COVID-19 (CHARITY) COVID-19 Clin Com 02/14/23 02/14/23 05:54 08:01 WBC RBC Hgb Hct MCV MCH MCHC RDW Plt Count MPV Immature Gran % (Auto) Neut % (Auto) Lymph % (Auto) Archer % (Auto) Eos % (Auto) Baso % (Auto) Lymph # (Auto) Archer # (Auto) Eos # (Auto) Baso # (Auto) Abs Immat Gran (auto) Absolute Neuts (auto) Absolute Nucleated RBC Nucleated RBC % (auto) Neutrophils % (Manual) Band Neutrophils % Lymphocytes % (Manual) Monocytes % (Manual) Metamyelocytes % Myelocytes % Abs Neuts (Manual) Lymphocytes # (Manual) Monocytes # (Manual) Metamyelocytes # Myelocytes # Dohle Bodies Platelet Estimate Large Platelets Plt Morphology Comment RBC Morphology Bambi Cells VBG pH 7.39 VBG pCO2 37 VBG pO2 53 VBG HCO3 23 VBG O2 Saturation 84.0 VBG Base Excess -1.1 Sodium Potassium Chloride Carbon Dioxide Anion Gap BUN Creatinine Estim Creat Clear Calc Estimated GFR Random Glucose Lactic Acid Lactic Acid F/U @ 2Hr 3.4 H* Lactic Acid F/U @ 4Hr Calcium Phosphorus Magnesium Total Bilirubin AST ALT Alkaline Phosphatase Troponin I High Sens B-Natriuretic Peptide Total Protein Albumin Lipase Urine Color Urine Appearance Urine pH Ur Specific Wagner Urine Protein Urine Glucose (UA) Urine Ketones Urine Blood Urine Nitrite Ur Leukocyte Esterase Urine RBC Urine WBC Ur Squamous Epith Cells Urine Bacteria Hyaline Casts COVID-19 (CHARITY) COVID-19 Clin Com Microbiology Microbiology Results: Microbiology 02/13/23 Unknown Urine clean catch - Urine [place] top Urine Culture - Preliminary Gram negative jose 02/13/23 20:20 Blood - Venous Blood Culture - Preliminary Prelim: GNR Gram Stain only 02/13/23 20:20 Blood - Venous Blood Culture - Preliminary Prelim: GNR Gram Stain only Progress Note: A&P Assessment and plan (1) Gram-negative bacteremia: Status: Acute (2) CESAR (acute kidney injury): Status: Acute (3) Hydronephrosis with urinary obstruction due to renal calculus: Status: Acute (4) Septic shock: Status: Acute (5) CAD (coronary artery disease): Status: Acute Plan Assessment: 67-year-old lady admitted with septic shock secondary to obstructing left renal calculus and Gram-negative bacteremia Plan: Neuro: No acute issues. Cardiac: septic shock, continue to titrate off pressors as tolerated. Underlying CAD. Pulmonary: No acute issues. Renal: Acute renal failure secondary to septic shock and obstructing left renal calculus with hydronephrosis. Urology evaluation is pending. Continue to monitor renal indices and urine output. Non oliguric. Endo: No acute issues. GI: No acute issues. ID: Gram-negative bacteremia with source. Continue broad-spectrum antibiotics until cultures are finalized. Heme/Onc: No acute issues. Psych: No acute issues. Miscellaneous: No acute issues. Prophylaxis: Heparin Diet: nothing by mouth Critical care time spent: 45 minutes excluding separately billable procedures Quality Stroke Does the patient have a stroke diagnosis?: No VTE Prior VTE?: No VTE Risk Level:: Medical - moderate - high VTE Device Contraindication: N/A - Device Ordered VTE Drug Contraindication: N/A - Med Ordered
[2023-02-14 10:07] LABS: Reflex Lactate? 2 Y
[2023-02-14 10:25] LABS: Cancel Lactic Acid Canceled
--- NOTE | 2023-02-14 13:13 | P.CNUR_ITS ---
History of Present Illness Consult details Consult date: 02/14/23 Narrative: Consulting Complaint left ureteric stone with sepsis 67-year-old female Repeat presentation to the emergency room Left flank pain. Reports COVID positive 10 days ago. Complaints now include nausea, vomiting, diarrhea and bilateral flank pain. Pain not improved with any oral medication, nonradiating Noted to be hypotensive, tachycardic but afebrile in ER WBC 12.8, platelets 218, creatinine 1.9, initial lactate 3.8 Past medical history of CAD status post stent 2009, hypertension, dyslipidemia Has been on pressure support in ICU with IV fluids and antibiotics. Imaging shows 3 mm left proximal stone with mild hydronephrosis ICU physician requesting decompression Recommend cystoscopy, retrograde, left stent placement Review of Systems Constitutional: Constitutional: Denies chills and Denies fever(s) Cardiovascular: Cardiovascular: Reports no additional cardiovascular complaints and Denies syncope Respiratory: Respiratory: Denies cough Gastrointestinal: Gastrointestinal: Denies abdominal pain and Denies heartburn Genitourinary: Genitourinary: Reports as per HPI and Denies change in libido Neurologic: Denies syncope Psychiatric: Psychiatric: Denies change in libido Endocrine: Endocrine: Denies change in libido [facility] Social History Social History Household Members: Family Housing: House Do you presently have visiting nurse or other home services: No Alcohol intake: never Patient Tobacco Use Status: Never used Tobacco Smoked in Last 30 Days: No e-Cigarette/Vaping Use: Never Used Patient Interested in Nicotine Replacement: No Patient Given Instructions on How to Stop Smoking: No Second Hand Smoke Exposure: No Use of substances other than those prescribed or required for medical reasons: No Currently Displaying Signs/Symptoms of Drug Intoxication Withdrawal: No Any prior treatment program specific to substance use: No Have you been hit, kicked, punched, or otherwise hurt by someone within the past year? If so, by whom?: No Do you feel safe in your current relationship?: No Current Relationship Is there a partner from a previous relationship who is making you feel unsafe now?: No Advance Directives: No Advance Directives Information Provided: No Advance Directives on File: No Do you have thoughts of harming others: None Do you have a plan to hurt others: No Plan Recently lost weight without trying: No Nutrition Risks: No Nutritional Risk Patient : No : No Poor oral hygiene: No service: No Meds Allergies Allergy/AdvReac Type Severity Reaction Status Date / Time atenolol [ATENOLOL] Allergy Unknown COUGH Verified 02/13/23 18:49 ADHESIVE BANDAGE Allergy Unknown RASH Uncoded 06/11/20 15:51 Active Medications: Current Medications Fentanyl (Fentanyl Citrate/Pf 100 Mcg/2 Ml Vial) 50 mcg IVPUSH Q2H PRN; Protocol PRN Reason: Pain, Severe (Pain Scale 7-10) Last Admin: 02/14/23 12:52 Dose: 50 mcg Heparin Sodium (Porcine) (Heparin Sodium,Porcine 5,000 Unit/Ml Vial) 5,000 unit SUBCUT BID [facility] Last Admin: 02/14/23 08:05 Dose: 5,000 unit Norepinephrine Bitartrate (Levophed) 8 mg in 250 mls @ 0 mls/hr IV .Q0M [facility]; Protocol Last Titration: 02/14/23 12:53 Dose: 0.26 mcg/kg/min, 35.34 mls/hr Piperacillin Sod/Tazobactam (Sod 2.25 gm/ Sodium Chloride) 50 mls @ 100 mls/hr IV Q6H [facility] Last Infusion: 02/14/23 08:37 Dose: Infused Albumin Human (Kedbumin 25 %) 100 mls @ 100 mls/hr IV Q6H [facility] Stop: 02/15/23 03:14 Last Infusion: 02/14/23 09:44 Dose: Infused Ondansetron HCl (Ondansetron Hcl 4 Mg/2 Ml Vial) 4 mg IVPUSH Q8H PRN PRN Reason: Nausea Last Admin: 02/14/23 11:10 Dose: 4 mg Pantoprazole Sodium (Pantoprazole Sodium 40 Mg/10 Ml Vial) 40 mg IVPUSH DAILY@0630 [facility] Last Admin: 02/14/23 06:03 Dose: 40 mg Pharmacy Consult (Consult Rx Perform Med Rec) 1 each MISCELLANE ONCE PRN PRN Reason: Consult order Home Medications Medication Instructions Recorded Confirmed Last Taken Type amlodipine 10 mg tablet 10 mg PO DAILY 02/13/23 02/13/23 Unknown History atorvastatin 40 mg tablet 40 mg PO DAILY 02/13/23 02/13/23 Unknown History cholecalciferol (vitamin D3) 50 50 mcg PO DAILY 02/13/23 02/13/23 Unknown History mcg (2,000 unit) capsule losartan 100 mg tablet 100 mg PO DAILY 02/13/23 02/13/23 Unknown History metoprolol succinate 100 mg 100 mg PO DAILY 02/13/23 02/13/23 Unknown History tablet,extended release 24 hr naproxen 500 mg tablet 500 mg PO BIDWM 02/13/23 02/13/23 Unknown History omeprazole 20 mg capsule,delayed 20 mg PO DAILY@0630 02/13/23 02/13/23 Unknown History release Physical Exam Vital Signs: Vital Signs: Last Vital Signs Temp 100.6 F H 02/14/23 13:00 Pulse 114 H 02/14/23 13:00 Resp 25 H 02/14/23 13:00 BP 117/71 02/14/23 13:00 Pulse Ox 92 02/14/23 13:00 O2 Del Method Nasal Cannula 02/14/23 13:00 O2 Flow Rate 5 02/14/23 13:00 BMI result Body Mass Index 34.0 Const: General: cooperative, healthy appearing, comfortable and no acute distress Orientation/consciousness: patient oriented x3 HEENT: Face and sinus: Yes normal facial exam Mouth: moist mucous membranes Neck: Neck: Yes normal visual inspection, Yes full ROM and Yes trachea midline Chest: Chest palpation & inspection: normal inspection of the chest Resp: Effort & Inspection: normal respiratory effort, able to speak in comp lete sentences and no respiratory distress GI: Inspection: Yes normal to inspection Back/Spine/Pelvis: Cervical Spine: normal cervical lordosis Thoracic/Lumbar Spine: thoracic and lumbar spine normal to inspection Skin: General skin exam: no rashes or lesions noted Neuro: General: patient oriented x3, gait normal, tone normal and moves all extremities Extrem: General: Yes normal to inspection and Yes capillary refill normal Results Labs 02/14/23 05:17 02/14/23 05:17 Labs: Abnormal lab results 02/13/23 02/13/23 02/13/23 Range/Units 18:45 18:45 18:45 WBC 12.8 H (4.8-10.8) X10*3/uL RBC 4.09 L (4.20-5.50) X10*6/uL Hgb (12.0-16.0) g/dl Hct 36.5 L (37.0-47.0) % Band Neutrophils % 21 H (3-5) % Lymphocytes % (Manual) 6 L (20-40) % Abs Neuts (Manual) 10.9 H (2.0-8.3) X10*3/uL Lymphocytes # (Manual) 0.8 L (1.2-4.9) X10*3/uL VBG HCO3 (22-26) mmol/L Carbon Dioxide 17 L (22-29) mmol/L BUN 42 H (9-16) mg/dL Creatinine 1.94 H (0.5-1.4) mg/dL Random Glucose (60-115) mg/dL Lactic Acid (0.5-2.0) mmol/L Lactic Acid F/U @ 2Hr (0.5-2.0) mmol/L Lactic Acid F/U @ 4Hr (0.5-2.0) mmol/L Calcium (8.4-10.2) mg/dL Magnesium 1.0 L* (1.6-2.6) mg/dL Troponin I High Sens (<3.5-17.0) ng/L B-Natriuretic Peptide 260 H (<100) pg/mL Total Protein 5.7 L (6.5-8.0) g/dL Albumin 3.2 L (3.5-5.0) g/dL Urine Protein (Neg-Trace) mg/dL Urine Blood (Negative) Urine Nitrite (Negative) Ur Leukocyte Esterase (Negative) Urine RBC (0-2) /HPF Urine WBC (0-5) /HPF COVID-19 ([facility]) (Negative) 02/13/23 02/13/23 02/13/23 Range/Units 18:51 18:53 18:53 WBC (4.8-10.8) X10*3/uL RBC (4.20-5.50) X10*6/uL Hgb (12.0-16.0) g/dl Hct (37.0-47.0) % Band Neutrophils % (3-5) % Lymphocytes % (Manual) (20-40) % Abs Neuts (Manual) (2.0-8.3) X10*3/uL Lymphocytes # (Manual) (1.2-4.9) X10*3/uL VBG HCO3 (22-26) mmol/L Carbon Dioxide (22-29) mmol/L BUN (9-16) mg/dL Creatinine (0.5-1.4) mg/dL Random Glucose (60-115) mg/dL Lactic Acid 3.8 H* (0.5-2.0) mmol/L Lactic Acid F/U @ 2Hr (0.5-2.0) mmol/L Lactic Acid F/U @ 4Hr (0.5-2.0) mmol/L Calcium (8.4-10.2) mg/dL Magnesium (1.6-2.6) mg/dL Troponin I High Sens 34.5 H (<3.5-17.0) ng/L B-Natriuretic Peptide (<100) pg/mL Total Protein (6.5-8.0) g/dL Albumin (3.5-5.0) g/dL Urine Protein (Neg-Trace) mg/dL Urine Blood (Negative) Urine Nitrite (Negative) Ur Leukocyte Esterase (Negative) Urine RBC (0-2) /HPF Urine WBC (0-5) /HPF COVID-19 ([facility]) Positive A (Negative) 02/13/23 02/13/23 02/13/23 Range/Units 20:23 20:33 21:27 WBC (4.8-10.8) X10*3/uL RBC (4.20-5.50) X10*6/uL Hgb (12.0-16.0) g/dl Hct (37.0-47.0) % Band Neutrophils % (3-5) % Lymphocytes % (Manual) (20-40) % Abs Neuts (Manual) (2.0-8.3) X10*3/uL Lymphocytes # (Manual) (1.2-4.9) X10*3/uL VBG HCO3 19 L (22-26) mmol/L Carbon Dioxide (22-29) mmol/L BUN (9-16) mg/dL Creatinine (0.5-1.4) mg/dL Random Glucose (60-115) mg/dL Lactic Acid (0.5-2.0) mmol/L Lactic Acid F/U @ 2Hr 4.1 H* (0.5-2.0) mmol/L Lactic Acid F/U @ 4Hr (0.5-2.0) mmol/L Calcium (8.4-10.2) mg/dL Magnesium (1.6-2.6) mg/dL Troponin I High Sens (<3.5-17.0) ng/L B-Natriuretic Peptide (<100) pg/mL Total Protein (6.5-8.0) g/dL Albumin (3.5-5.0) g/dL Urine Protein 100 (2+) H (Neg-Trace) mg/dL Urine Blood Moderate (2+) H (Negative) Urine Nitrite Positive H (Negative) Ur Leukocyte Esterase Large (3+) H (Negative) Urine RBC 11-20 H (0-2) /HPF Urine WBC >50 H (0-5) /HPF COVID-19 ([facility]) (Negative) 02/13/23 02/14/23 02/14/23 Range/Units 21:27 00:07 05:17 WBC 13.6 H (4.8-10.8) X10*3/uL RBC 3.18 L D (4.20-5.50) X10*6/uL Hgb 9.6 L D (12.0-16.0) g/dl Hct 29.0 L D (37.0-47.0) % Band Neutrophils % 27 H (3-5) % Lymphocytes % (Manual) 3 L (20-40) % Abs Neuts (Manual) 12.2 H (2.0-8.3) X10*3/uL Lymphocytes # (Manual) 0.4 L (1.2-4.9) X10*3/uL VBG HCO3 (22-26) mmol/L Carbon Dioxide (22-29) mmol/L BUN (9-16) mg/dL Creatinine (0.5-1.4) mg/dL Random Glucose (60-115) mg/dL Lactic Acid (0.5-2.0) mmol/L Lactic Acid F/U @ 2Hr (0.5-2.0) mmol/L Lactic Acid F/U @ 4Hr 3.6 H* (0.5-2.0) mmol/L Calcium (8.4-10.2) mg/dL Magnesium (1.6-2.6) mg/dL Troponin I High Sens 46.6 H (<3.5-17.0) ng/L B-Natriuretic Peptide (<100) pg/mL Total Protein (6.5-8.0) g/dL Albumin (3.5-5.0) g/dL Urine Protein (Neg-Trace) mg/dL Urine Blood (Negative) Urine Nitrite (Negative) Ur Leukocyte Esterase (Negative) Urine RBC (0-2) /HPF Urine WBC (0-5) /HPF COVID-19 ([facility]) (Negative) 02/14/23 02/14/23 02/14/23 Range/Units 05:17 05:17 05:17 WBC (4.8-10.8) X10*3/uL RBC (4.20-5.50) X10*6/uL Hgb (12.0-16.0) g/dl Hct (37.0-47.0) % Band Neutrophils % (3-5) % Lymphocytes % (Manual) (20-40) % Abs Neuts (Manual) (2.0-8.3) X10*3/uL Lymphocytes # (Manual) (1.2-4.9) X10*3/uL VBG HCO3 (22-26) mmol/L Carbon Dioxide 19 L (22-29) mmol/L BUN 33 H (9-16) mg/dL Creatinine 1.49 H (0.5-1.4) mg/dL Random Glucose 140 H (60-115) mg/dL Lactic Acid 3.9 H* (0.5-2.0) mmol/L Lactic Acid F/U @ 2Hr (0.5-2.0) mmol/L Lactic Acid F/U @ 4Hr (0.5-2.0) mmol/L Calcium 7.5 L D (8.4-10.2) mg/dL Magnesium (1.6-2.6) mg/dL Troponin I High Sens 52.2 H* (<3.5-17.0) ng/L B-Natriuretic Peptide (<100) pg/mL Total Protein 5.1 L (6.5-8.0) g/dL Albumin 3.4 L (3.5-5.0) g/dL Urine Protein (Neg-Trace) mg/dL Urine Blood (Negative) Urine Nitrite (Negative) Ur Leukocyte Esterase (Negative) Urine RBC (0-2) /HPF Urine WBC (0-5) /HPF COVID-19 ([facility]) (Negative) 02/14/23 Range/Units 08:01 WBC (4.8-10.8) X10*3/uL RBC (4.20-5.50) X10*6/uL Hgb (12.0-16.0) g/dl Hct (37.0-47.0) % Band Neutrophils % (3-5) % Lymphocytes % (Manual) (20-40) % Abs Neuts (Manual) (2.0-8.3) X10*3/uL Lymphocytes # (Manual) (1.2-4.9) X10*3/uL VBG HCO3 (22-26) mmol/L Carbon Dioxide (22-29) mmol/L BUN (9-16) mg/dL Creatinine (0.5-1.4) mg/dL Random Glucose (60-115) mg/dL Lactic Acid (0.5-2.0) mmol/L Lactic Acid F/U @ 2Hr 3.4 H* (0.5-2.0) mmol/L Lactic Acid F/U @ 4Hr (0.5-2.0) mmol/L Calcium (8.4-10.2) mg/dL Magnesium (1.6-2.6) mg/dL Troponin I High Sens (<3.5-17.0) ng/L B-Natriuretic Peptide (<100) pg/mL Total Protein (6.5-8.0) g/dL Albumin (3.5-5.0) g/dL Urine Protein (Neg-Trace) mg/dL Urine Blood (Negative) Urine Nitrite (Negative) Ur Leukocyte Esterase (Negative) Urine RBC (0-2) /HPF Urine WBC (0-5) /HPF COVID-19 ([facility]) (Negative) Short CBC 02/13/23 02/14/23 Range/Units 18:45 05:17 WBC 12.8 H 13.6 H (4.8-10.8) X10*3/uL Hgb 12.5 9.6 L D (12.0-16.0) g/dl Hct 36.5 L 29.0 L D (37.0-47.0) % Plt Count 218 164 (160-400) X10*3/uL BMP 02/13/23 02/14/23 18:45 05:17 Sodium 137 140 Potassium 4.2 3.6 Chloride 106 108 Carbon Dioxide 17 L 19 L BUN 42 H 33 H Creatinine 1.94 H 1.49 H Calcium 8.5 7.5 L D Liver Function 02/13/23 02/14/23 Range/Units 18:45 05:17 Total Bilirubin 0.8 0.6 (0.0-1.0) mg/dL AST 20 23 (5-31) U/L ALT 27 27 (0-31) U/L Alkaline Phosphatase 75 61 (39-117) U/L Albumin 3.2 L 3.4 L (3.5-5.0) g/dL Urine 02/13/23 Range/Units 20:33 Urine Color Yellow Urine Appearance Cloudy Urine pH 5.5 (5.0-9.0) Ur Specific [place] 1.015 (1.005-1.025) Urine Protein 100 (2+) H (Neg-Trace) mg/dL Urine Glucose (UA) Negative (Negative) mg/dL All other labs normal. Assessment and Plan (1) Septic shock: Status: Acute (2) Gram-negative bacteremia: Status: Acute (3) Hydronephrosis with urinary obstruction due to renal calculus: Status: Acute Plan Risks, benefits and alternatives to therapy were discussed. These include but are not limited to infection, bleeding, damage to local organs and tissues, need for further interventions. Anesthetic risks regarding cardiac arrhythmia, blood clots, and potential mortality were discussed. The patient understands the typical recovery time and the outpatient nature of the procedure. After consideration of these risks the patient gives full informed consent and they wish to move ahead with the procedure. cystoscopy, left retrograde, left stent placement Time Spent With Patient Time: Total time managing care of this patient today ____ minutes. Procedures Date of Service Date of Service: 02/14/23
[2023-02-14] MEDS: Ketorolac Tromethamine 15 MG/ML VIAL IVPUSH (13:48)
--- NOTE | 2023-02-14 13:49 | P.CDIM_ITS ---
PROVIDER RESPONSE TEXT: To clarify, the appropriate diagnosis supported by the clinical indicators: Acute QUERY TEXT: PHYSICIAN'S DOCUMENTATION REQUEST Date of Query: 02/14/2023 12:29 PM EDT Patient Name: Mariella Pantoja Admit Date: 02/14/2023 Dear Jermain Chicas, A review of the medical record indicates additional documentation may be needed. Please review below and update the documentation accordingly. Clinical Indicators: Per H&P 02/13/23: Lactic and Metabolic Acidosis Clarify which of the following accurately represents the acuity of the (insert diagnosis). Possible options might include: Acute Acute on chronic Compensated Chronic stable condition Remission Other (explain)Clinically unable to determine (explain)Thank you, Rhianna Tovar RN Use of terms such as suspected, likely, concern for, or probable (associated with a specific diagnosi s that is being evaluated, monitored, or treated as if it exists) are acceptable and can be coded in the inpatient se tting, when documented at the time of discharge. Please use your independent medical judgment in providing your response. THIS QUERY IS PART OF THE PERMANENT MEDICAL RECORD
[2023-02-14] MEDS: Norepinephrine Bitartrate/D5W 8 MG/250 ML PLAST..BAG 27.19 MG IV (16:30)
--- NOTE | 2023-02-14 18:40 | MHC.SHP ---
Pre-Procedural Eval Section A Date of Service: 02/14/23 The patient is an INPATIENT: Yes The History & Physical has been completed within 30 days and I have reviewed it.: Yes Section B Chief Complaint: SEPTIC SHOCK Allergies: Allergies Allergy/AdvReac Type Severity Reaction Status Date / Time atenolol [ATENOLOL] Allergy Unknown COUGH Verified 02/13/23 18:49 ADHESIVE BANDAGE Allergy Unknown RASH Uncoded 06/11/20 15:51 Plan Diagnosis/Plan: Unchanged I have reviewed the history and physical and performed a pertinent physical examination on my patient. No changes have occurred unless specified. Cystoscopy Left ureteral stent/retrograde Time Spent With Patient Time: Total time managing care of this patient today ____ minutes.
--- NOTE | 2023-02-14 19:45 | W.PM.OPN ---
Operative Note Operative Note Date of Service: 02/14/23 Narrative: PreOperative Diagnosis:?? UTI sepsis left proximal ureteral stone Post Operative Diagnosis:?? ? UTI sepsis left proximal ureteral stone Procedure: - cystoscopy, left retrograde - left stent placement Surgeon:?Dr Moo Forbes Anesthesia:? MAC Indications for procedure: Mariella is a 67-year-old female with UTI sepsis, urine and blood cultures positive, CT imaging left proximal ureteral stone. Procedure: After informed consent was verified the patient was brought to the operating room from the ICU and placed on the OR table in supine position.? IV-MAC was administered per protocol.? The patient was placed in lithotomy position, prepped and draped in the usual sterile fashion.? Safety pause time-out and side of surgery confirmed.? Antibiotics confirmed, the patient has been on scheduled IV antibiotics. A 22 [place] cystoscope was inserted transurethrally, The bladder was visualized.? Both ureteric orifices were in normal position. The? left ureteric orifice was cannulated? and a retrograde examination was performed, A hydrophilic guidewire was placed up to the level of the renal pelvis under fluoroscopy. A? 6 [place] by multi- length stent was placed into the ureter and renal pelvis under a combination of fluoroscopy and direct visualization. The bladder was emptied.? The rigid cystoscope was removed. ? Temperature 16 [place] Mohr placed to gravity drainage. The patient tolerated the procedure well and was brought back to ICU in stable condition. Complications: None Drains: Ureteral stent as dictated above
--- NOTE | 2023-02-14 22:41 | PC.NURSE ---
PT TO SURGERY FOR LEFT STENT PLACEMENT. RETURNED TO ICU AT 1945 LETHARGIC BUT AROUSABLE TO NAME AND FOLLOWING COMMANDS. O2 SATS 89-90% ON NC. O2 FACEMASK APPLIED AT 12L. PT ENCOURAGED TO C&DB WHICH SHE WAS ABLE TO DO WITH IMPROVEMENT OF O2 SATS. LATER CANNNULA REAPPLIED AT 6L. O2 SAT 91-92%. BRODY CATH DRAINING BLOODY URINE AT 1ST AND NOW PINK TINGED. BP STABLE ON LEVOPHED AT 0.1 MCG. MONITOR SHOWS NSR-ST, 90'S-110.
[2023-02-15] VITALS (19 sets, daily range): BP systolic 115–156; BP diastolic 68–87; PULSE 94–134; RESP 13–32; TEMP 36.3–37.2; O2SAT 89–96; BMI 34.6
[2023-02-15] MEDS: Piperacillin Sodium/Tazobactam 2.25 GM in 0.9 % Sodium Chloride 50 ML IV (01:58)
[2023-02-15] MEDS: Albumin Human 25 % 100 ML 200 ML IV (01:58)
[2023-02-15] MEDS: fentaNYL citrate/PF 100 MCG/2 ML VIAL 50 MCG IVPUSH ×3 (02:06→12:18)
--- NOTE | 2023-02-15 04:10 | PC.NURSE ---
CARE ASSUMED 23:15..AWAKE..ALERT..ORIENTED X3...BRODY DRAINING CLEAR YELLOW URINE OVERNIGHT...LEVOPHED WEANED PER NOV...REMAINS O2 6 L/M CANNULA...SAO2 90-91%..DENIES SOB...ICU PA AWARE...AM CXR ORDERED...SINUS TACH HR 98-108.....PRN FENTANYL PER NOV FOR C/O LEFT FLANK PAIN...PER SHIFT REPORT INFECTIOUS DISEASE D/C'D [place] ISOLATION D/T HOME COVID (+) > 10 DAYS AGO...BRODY DRAINING LARGE AMOUNTS YELLOW URINE
[2023-02-15] MEDS: Pantoprazole Sodium 40 MG/10 ML VIAL IVPUSH (04:53)
[2023-02-15 05:07] LABS: VBG Base Excess 4.9 mmol/L; VBG HCO3 30 mmol/L (22-26); VBG pCO2 49 mmHg; VBG pH 7.39 (7.32-7.43); VBG pO2 47 mmHg
[2023-02-15 05:08] LABS: Venous Blood Gas Refer to POC result
[2023-02-15 05:22] LABS: Hematocrit 28.4 % (37.0-47.0); Hemoglobin 9.7 g/dl (12.0-16.0); Mean Corpuscular HGB Conc 34.2 g/dl (31.0-35.0); Mean Corpuscular Hemoglobin 30.6 pg (27.0-33.0); Mean Corpuscular Volume 89.6 fL (80.0-98.0); Mean Platelet Volume 10.3 fL (9.4-12.3); Red Blood Count 3.17 X10*6/uL (4.20-5.50); Red Cell Distribution Width 13.7 % (11.0-16.0)
[2023-02-15 05:26] LABS: Platelet Count 97 X10*3/uL (160-400); WBC ABN SCTR FOR CBC 1; White Blood Count 13.8 X10*3/uL (4.8-10.8)
[2023-02-15 05:49] LABS: Anion Gap 17 (12-20)
[2023-02-15 05:51] LABS: Band Neutrophils Percent 20 % (3-5); Burr Cells 1+ (0-2) /OIF; Dohle Bodies PRESENT; Lymphocytes Absolute Manual 0.3 X10*3/uL (1.2-4.9); Lymphocytes Percent Manual 2 % (20-40); Neutrophils Absolute Manual 13.5 X10*3/uL (2.0-8.3); Neutrophils Percent Manual 78 % (45-73); Platelet Estimate DECREASED (NORMAL); Platelet Morphology Comment NORMAL; RBC Morphology NORMAL
[2023-02-15 05:56] LABS: Alanine Aminotransferase 30 U/L (0-31); Alkaline Phosphatase 83 U/L (39-117); Aspartate Amino Transferase 29 U/L (5-31); Blood Urea Nitrogen 23 mg/dL (9-16); Calcium 8.9 mg/dL (8.4-10.2); Carbon Dioxide 22 mmol/L (22-29); Chloride 108 mmol/L (96-108); Creatinine Clr Calc Pharmacy 37.5; Estimated Glomerular Filt Rate 37; Glucose Random 112 mg/dL (60-115); Magnesium 2.2 mg/dL (1.6-2.6); Potassium 3.7 mmol/L (3.3-5.1); Sodium 143 mmol/L (135-145); Total Protein 5.7 g/dL (6.5-8.0)
[2023-02-15] MEDS: Furosemide 20 MG/2 ML VIAL IVPUSH (06:29)
[2023-02-15 07:11] LABS: B Type Natriuretic Peptide 1072 pg/mL (<100)
[2023-02-15] MEDS: Potassium Chloride Packet 20 MEQ PACKET 60 MEQ PO (08:23)
[2023-02-15] MEDS: Heparin Sodium,Porcine 5,000 UNIT/ML VIAL 5000 UNIT SUBCUT ×2 (08:23→20:17)
[2023-02-15] MEDS: SODIUM CHLORIDE 0.9% IV (10:12)
[2023-02-15] MEDS: CEFTRIAXONE SODIUM IV (10:12)
--- NOTE | 2023-02-15 10:17 | P.PNCC_ITS ---
Subjective Subjective Date of Service: 02/15/23 Interval History: 67-year-old lady with underlying history of CAD, hypertension GERD, spinal stenosis admitted on 02/13/2023 with flank pain and hypotension refractory to initial IV fluid support secondary to obstructive left renal calculus with mild hydronephrosis with E coli bacteremia. Patient was started on broad-spectrum antibiotics and admitted to the intensive care unit. Of note, patient is COVID positive for approximately 10 days prior to admission. Patient has had urologic stent placement on 02/14/2023 with improvement in left-sided pain and pressor requirements. Titrated off pressors overnight. patient required dose of di uretic disease a.m. secondary to fluid retention from IV fluid resuscitation for underlying sepsis. Critical Care Time (minutes): 30 Physical Exam Vital Signs: Vital Signs: Last Vital Signs Temp 97.9 F 02/15/23 10:00 Pulse 104 H 02/15/23 10:00 Resp 23 H 02/15/23 10:00 BP 145/87 H 02/15/23 10:00 Pulse Ox 96 02/15/23 10:00 O2 Del Method Nasal Cannula 02/15/23 10:00 O2 Flow Rate 6 02/15/23 10:00 BMI result Body Mass Index 34.6 Const: General: no acute distress, alert and awake Eyes: Sclerae: sclerae normal EOM: EOMs intact bilaterally Neck: Neck: Yes no lymphadenopathy, Yes trachea midline and Yes supple Resp: Effort & Inspection: normal respiratory effort and no respiratory distress Auscultation: crackles ( bibasilar) Cardio: Rate: tachycardic Rhythm: regular rhythm Heart sounds: no gallops, no murmurs and no rubs GI: Palpation (GI): Soft to palpation and Other GI palpation findings present ( Nontender) Auscultation: normal bowel sounds Extrem: General: Yes no pedal edema, No clubbing and No cyanosis Objective Data Labs 02/15/23 04:55 02/15/23 04:55 Labs: Laboratory Results - last 24 hr 02/15/23 02/15/23 02/15/23 04:55 04:55 04:55 WBC 13.8 H RBC 3.17 L Hgb 9.7 L Hct 28.4 L MCV 89.6 MCH 30.6 MCHC 34.2 RDW 13.7 Plt Count 97 L D MPV 10.3 Immature Gran % (Auto) Cancelled Neut % (Auto) Cancelled Lymph % (Auto) Cancelled [place] % (Auto) Cancelled Eos % (Auto) Cancelled Baso % (Auto) Cancelled Lymph # (Auto) Cancelled [place] # (Auto) Cancelled Eos # (Auto) Cancelled Baso # (Auto) Cancelled Abs Immat Gran (auto) Cancelled Absolute Neuts (auto) Cancelled Absolute Nucleated RBC 0.000 Nucleated RBC % (auto) 0.0 Neutrophils % (Manual) 78 H Band Neutrophils % 20 H Lymphocytes % (Manual) 2 L Abs Neuts (Manual) 13.5 H Lymphocytes # (Manual) 0.3 L Dohle Bodies PRESENT Platelet Estimate DECREASED Plt Morphology Comment NORMAL RBC Morphology NORMAL [place] Cells 1+ (0-2) VBG pH VBG pCO2 VBG pO2 VBG HCO3 VBG O2 Saturation VBG Base Excess Sodium 143 Cancelled Potassium 3.7 Cancelled Chloride 108 Cancelled Carbon Dioxide 22 Cancelled Anion Gap 17 Cancelled BUN 23 H Cancelled Creatinine 1.42 H Cancelled Estim Creat Clear Calc 37.5 Cancelled Estimated GFR 37 Cancelled Random Glucose 112 Cancelled Calcium 8.9 D Cancelled Phosphorus 4.0 Cancelled Magnesium 2.2 Cancelled Total Bilirubin 1.0 AST 29 ALT 30 Alkaline Phosphatase 83 B-Natriuretic Peptide Total Protein 5.7 L Albumin 4.0 Cancelled 02/15/23 02/15/23 04:57 06:30 WBC RBC Hgb Hct MCV MCH MCHC RDW Plt Count MPV Immature Gran % (Auto) Neut % (Auto) Lymph % (Auto) [place] % (Auto) Eos % (Auto) Baso % (Auto) Lymph # (Auto) [place] # (Auto) Eos # (Auto) Baso # (Auto) Abs Immat Gran (auto) Absolute Neuts (auto) Absolute Nucleated RBC Nucleated RBC % (auto) Neutrophils % (Manual) Band Neutrophils % Lymphocytes % (Manual) Abs Neuts (Manual) Lymphocytes # (Manual) Dohle Bodies Platelet Estimate Plt Morphology Comment RBC Morphology [place] Cells VBG pH 7.39 VBG pCO2 49 VBG pO2 47 VBG HCO3 30 H VBG O2 Saturation 75.0 VBG Base Excess 4.9 Sodium Potassium Chloride Carbon Dioxide Anion Gap BUN Creatinine Estim Creat Clear Calc Estimated GFR Random Glucose Calcium Phosphorus Magnesium Total Bilirubin AST ALT Alkaline Phosphatase B-Natriuretic Peptide 1072 H Total Protein Albumin Microbiology Microbiology Results: Microbiology 02/13/23 20:20 Blood - Venous Blood Culture - Preliminary Gram negative jose 02/13/23 20:20 Blood - Venous Blood Culture - Preliminary Gram negative jose 02/13/23 Unknown Urine clean catch - Urine [place] top Urine Culture - Final Escherichia coli Progress Note: A&P Assessment and plan (1) E coli bacteremia: Status: Acute (2) Hydronephrosis with urinary obstruction due to renal calculus: Status: Acute (3) CAD (coronary artery disease): Status: Acute Plan Assessment: 67-year-old lady admitted with septic shock secondary to obstructing left renal calculus and Gram-negative bacteremia Plan: Neuro: No acute issues. Cardiac: septic shock, resolved. Titrated off pressors. Underlying CAD. Pulmonary: No acute issues. Renal: Acute renal failure secondary to septic shock and obstructing left shefali al calculus with hydronephrosis. Urology service care appreciated. Now status post stenting. Continue to monitor renal indices and urine output. Non oliguric. Endo: No acute issues. GI: No acute issues. ID: E coli bacteremia with source. Antibiotics narrowed to ceftriaxone. Heme/Onc: No acute issues. Psych: No acute issues. Miscellaneous: No acute issues. Prophylaxis: Heparin Diet: regular diet Critical care time spent: 30 minutes Quality Stroke Does the patient have a stroke diagnosis?: No VTE Prior VTE?: No VTE Risk Level:: Medical - moderate - high VTE Device Contraindication: N/A - Device Ordered VTE Drug Contraindication: N/A - Med Ordered
--- NOTE | 2023-02-15 12:01 | HO.POSTANES ---
Post Anesthesia Evaluation Post Anesthesia Evaluation Date of Service: 02/15/23 Vital Signs: Vital Signs Temp Pulse Resp BP Pulse Ox O2 Del Method O2 Flow Rate 02/15/23 08:00 94 138/81 02/15/23 08:00 94 138/81 02/15/23 11:00 98.1 F 115 H 32 H 129/78 95 Nasal Cannula 6 02/15/23 10:00 97.9 F 104 H 23 H 145/87 H 96 Nasal Cannula 6 02/15/23 09:00 97.9 F 108 H 22 H 142/76 H 95 Nasal Cannula 6 02/15/23 08:00 97.7 F 95 13 138/81 92 Nasal Cannula 6 02/15/23 07:00 97.3 F 108 H 22 H 122/75 92 Nasal Cannula 6 02/15/23 06:00 100 20 138/78 91 L Nasal Cannula 6 02/15/23 05:00 97.9 F 100 18 134/75 89 L Nasal Cannula 6 02/15/23 04:00 97.9 F 98 14 136/69 90 L Nasal Cannula 6 02/15/23 03:44 106 H 156/74 H 02/15/23 02:58 102 H 18 124/68 90 L Nasal Cannula 6 02/15/23 02:00 98.4 F 110 H 18 145/77 H 90 L Nasal Cannula 6 02/15/23 02:12 108 H 145/77 H 02/15/23 01:32 112 H 115/72 02/15/23 01:06 112 H 133/72 02/15/23 00:55 99 F 113 H 25 H 128/71 91 L Nasal Cannula 6 Anesthesia: General Mental Status: Awake Pain Control: Satisfactory Nausea/Vomiting: None Hydration: Adequate Anesthesia-Related Issues: No Anes. Related Issues
--- NOTE | 2023-02-15 12:33 | PC.NURSE ---
TLC removed from right IJ at 1111, patient tolerated poorly removal of adhesive despite copious adhesive remover use. Good teachback on removal precautions, Tolerated actual removal well, no signs of respiratory distress or hypoxia.
[2023-02-15] MEDS: HYDROmorphone HCl 0.5 MG/0.5 ML SYRINGE IVPUSH (19:53)
[2023-02-15] MEDS: ondansetron HCL 4 MG/2 ML VIAL IVPUSH (20:02)
[2023-02-16] VITALS (7 sets, daily range): BP systolic 131–154; BP diastolic 65–85; PULSE 102–122; RESP 16–20; TEMP 36.1–37.1; O2SAT 93–96; BMI 32.3
[2023-02-16] MEDS: HYDROmorphone HCl 0.5 MG/0.5 ML SYRINGE IVPUSH ×4 (00:08→21:31)
[2023-02-16] MEDS: ondansetron HCL 4 MG/2 ML VIAL IVPUSH ×3 (04:00→21:32)
[2023-02-16 07:09] LABS: Hematocrit 31.7 % (37.0-47.0); Hemoglobin 10.6 g/dl (12.0-16.0); Mean Corpuscular HGB Conc 33.4 g/dl (31.0-35.0); Mean Corpuscular Hemoglobin 29.9 pg (27.0-33.0); Mean Corpuscular Volume 89.5 fL (80.0-98.0); Mean Platelet Volume 10.7 fL (9.4-12.3); Platelet Count 109 X10*3/uL (160-400); Red Blood Count 3.54 X10*6/uL (4.20-5.50); Red Cell Distribution Width 13.6 % (11.0-16.0); White Blood Count 16.2 X10*3/uL (4.8-10.8)
[2023-02-16 07:32] LABS: Albumin Level 3.6 g/dL (3.5-5.0); Anion Gap 14 (12-20); Blood Urea Nitrogen 28 mg/dL (9-16); Carbon Dioxide 25 mmol/L (22-29); Chloride 104 mmol/L (96-108); Creatinine Clr Calc Pharmacy 40.1; Estimated Glomerular Filt Rate 42; Glucose Random 88 mg/dL (60-115); Magnesium 2.2 mg/dL (1.6-2.6); Phosphorus 2.4 mg/dL (2.7-4.5); Potassium 3.6 mmol/L (3.3-5.1); Sodium 139 mmol/L (135-145)
[2023-02-16 07:55] LABS: Band Neutrophils Percent 2 % (3-5); Lymphocytes Absolute Manual 1.5 X10*3/uL (1.2-4.9); Lymphocytes Percent Manual 9 % (20-40); Metamyelocytes Absolute 0.2 X10*3/uL; Metamyelocytes Percent 1 %; Monocytes Absolute Manual 0.3 X10*3/uL (0.1-1.2); Monocytes Percent Manual 2 % (2-11); Neutrophils Absolute Manual 14.3 X10*3/uL (2.0-8.3); Neutrophils Percent Manual 86 % (45-73)
[2023-02-16 07:59] LABS: Burr Cells 2+ (3-5) /OIF; Platelet Estimate DECREASED (NORMAL); RBC Morphology NOTED
[2023-02-16 08:00] LABS: Platelet Morphology Comment NORMAL
[2023-02-16] MEDS: Heparin Sodium,Porcine 5,000 UNIT/ML VIAL 5000 UNIT SUBCUT ×2 (10:55→21:32)
[2023-02-16] MEDS: SODIUM CHLORIDE 0.9% IV (10:56)
[2023-02-16] MEDS: CEFTRIAXONE SODIUM IV (10:56)
--- NOTE | 2023-02-16 10:58 | HO.PM.IMPN ---
Subjective Subjective Date of Service: 02/16/23 Interval History: seen and examined this morning follow up for septic shock secondary to bacteremia, obstructive renal calculous downgraded from ICU 02/15 feeling much better today, reporting some left side flank pain no fever, chills Review of Systems Review of Systems: Yes all other systems are reviewed and are negative Constitutional Constitutional: Denies chills and Denies fever(s) ENT Ears, Nose, Mouth, and Throat: Denies dizziness Cardiovascular Cardiovascular: Denies chest pain, Denies palpitations and Denies dyspnea Respiratory Respiratory: Reports cough and Denies dyspnea Gastrointestinal Gastrointestinal: Denies nausea and Denies vomiting Neurologic Neurologic: Denies dizziness Endocrine Endocrine: Denies palpitations Physical Exam Vital Signs: Vital Signs: Last Vital Signs Temp 96.9 F 02/16/23 10:50 Pulse 116 H 02/16/23 10:50 Resp 16 02/16/23 10:50 BP 131/77 02/16/23 10:50 Pulse Ox 96 02/16/23 10:50 O2 Del Method Nasal Cannula 02/16/23 10:50 O2 Flow Rate 6 02/16/23 10:50 BMI result Body Mass Index 32.3 Const: General: cooperative, comfortable, no acute distress, alert and awake Nutritional Appearance: overweight Orientation/consciousness: patient oriented x3 Resp: Effort & Inspection: normal respiratory effort, able to speak in complete sentences, no respiratory distress and no use of accessory muscles Cardio: Rate: tachycardic Heart sounds: S1 normal heart sound present and S2 normal heart sound present GI: Inspection: No distended Palpation (GI): Soft to palpation and nontender Neuro: General: patient oriented x3, moves all extremities and CN's II-XI intact bilaterally Extrem: General: Yes no pedal edema Objective Data Active Medications Heparin Sodium (Porcine) (Heparin Sodium,Porcine 5,000 Unit/Ml Vial) 5,000 unit SUBCUT BID [facility] Last Admin: 02/15/23 20:17 Dose: 5,000 unit Documented By: MONI Hydromorphone HCl (Hydromorphone Hcl 0.5 Mg/0.5 Ml Syringe) 0.5 mg IVPUSH Q4H PRN; Protocol PRN Reason: Pain, Severe (Pain Scale 7-10) Last Admin: 02/16/23 04:15 Dose: 0.5 mg Documented By: MONI Ceftriaxone Sodium 2 gm/ (Sodium Chloride) 100 mls @ 100 mls/hr IV Q24H [facility] Last Infusion: 02/15/23 11:25 Dose: 0 mls/hr Documented By: KLEVER Ondansetron HCl (Ondansetron Hcl 4 Mg/2 Ml Vial) 4 mg IVPUSH Q8H PRN PRN Reason: Nausea Last Admin: 02/16/23 04:00 Dose: 4 mg Documented By: MONI Pharmacy Consult (Consult Rx Perform Med Rec) 1 each MISCELLANE ONCE PRN PRN Reason: Consult order Labs 02/16/23 06:36 02/16/23 06:36 Labs: Laboratory Results - last 24 hr 02/16/23 02/16/23 06:36 06:36 MCV 89.5 MCH 29.9 MCHC 33.4 RDW 13.6 Plt Count 109 L MPV 10.7 Immature Gran % (Auto) Cancelled Neut % (Auto) Cancelled Lymph % (Auto) Cancelled [place] % (Auto) Cancelled Eos % (Auto) Cancelled Baso % (Auto) Cancelled Lymph # (Auto) Cancelled [place] # (Auto) Cancelled Eos # (Auto) Cancelled Baso # (Auto) Cancelled Abs Immat Gran (auto) Cancelled Absolute Neuts (auto) Cancelled Absolute Nucleated RBC 0.000 Nucleated RBC % (auto) 0.0 Neutrophils % (Manual) 86 H Band Neutrophils % 2 L Lymphocytes % (Manual) 9 L Monocytes % (Manual) 2 Metamyelocytes % 1 Abs Neuts (Manual) 14.3 H Lymphocytes # (Manual) 1.5 Monocytes # (Manual) 0.3 Metamyelocytes # 0.2 Platelet Estimate DECREASED Plt Morphology Comment NORMAL RBC Morphology NOTED [place] Cells 2+ (3-5) Anion Gap 14 Estim Creat Clear Calc 40.1 Estimated GFR 42 Random Glucose 88 Calcium 9.0 Phosphorus 2.4 L Magnesium 2.2 Albumin 3.6 Microbiology Microbiology Results: Microbiology 02/13/23 20:20 Blood Culture - Final Blood - Venous Escherichia coli 02/13/23 20:20 Blood Culture - Final Blood - Venous Escherichia coli 02/13/23 Unknown Urine Culture - Final Urine clean catch - Urine [place] Escherichia coli Assessment and Plan (1) E coli bacteremia: Status: Acute (2) Septic shock: Status: Acute (3) Hydronephrosis with urinary obstruction due to renal calculus: Status: Acute (4) CESAR (acute kidney injury): Status: Acute Plan This is a 67-year-old female with underlying CAD, hypertension GERD, spinal stenosis admitted on 02/13/2023 with flank pain and hypotension refractory to initial IV fluid support secondary to obstructive left renal calculus with mild hydronephrosis found to have E coli bacteremia.? Patient was started on broad-spectrum antibiotics and admitted to the intensive care unit.? Of note, patient is COVID positive for approximately 10 days prior to admission.? Patient had urologic stent placement on 02/14/2023 with improvement in left-sided pain and pressor requirements.?course complicated by fluid overload secondary to IVF resuscitation. downgraded to medical floor 02/15 septic shock secondary to e.coli UTi and bacteremia from obstructing left renal calculus s/p left renal stent placement 02/14 continue IV ceftraixone ID consult pending Acute respiratory failure with hypoxia r/t fluid overload from resuscitation received IV lasix x1 wean oxygen as tolearated CESAR secondary to sepsis, obstructing stone renal function improving, SCr down to 1.28 follow renal function losartan on hold Thrombocytopenia likely related to sepsis follow CBC Normocytic anemia related to acute illness follow CBC HTN bp meds on hold for sepsis norvasc, losartan, metoprolol resume as bp allows HLD statin on hold Covid + tested positive 10+ days ago no significant symptoms dvt ppx - heparin attending - dr. sher patient requires ongoing inpatient hospitalization for management of bacteremia, CESAR Time Spent With Patient Time: Total time managing care of this patient today ____ minutes. Quality Stroke Does the patient have a stroke diagnosis?: No VTE Prior VTE?: No VTE Risk Level:: Medical - moderate - high VTE Device Contraindication: N/A - Device Ordered VTE Drug Contraindication: N/A - Med Ordered
[2023-02-16] MEDS: polyethylene glycoL 3350 17 GM POWD.PACK PO (12:03)
--- NOTE | 2023-02-16 12:22 | MHC.CM.PN ---
EMR reviewed and per MD rounds, pt not medically cleared for D/C and is anticipated to need monitoring for a few more days. CM will continue to follow.
--- NOTE | 2023-02-16 12:32 | PC.NURSE ---
Titrate to 4 liters o2 per md
--- NOTE | 2023-02-16 15:29 | PC.NURSE ---
Mohr catheter removed from patient @1100, Patient has voided 3 times in 4 hours
--- NOTE | 2023-02-16 15:46 | PC.NURSE ---
patient titrated down to 2l, oxygen sat @95% for 2 minutes
[2023-02-16] MEDS: oxyCODONE HCl Immed Release 5 MG TABLET PO (16:50)
[2023-02-16] MEDS: Docusate Sodium 100 MG CAPSULE PO (21:32)
[2023-02-17] VITALS (9 sets, daily range): BP systolic 130–164; BP diastolic 76–89; PULSE 78–120; RESP 17–20; TEMP 36.6–37.1; O2SAT 91–98; BMI 31.2
[2023-02-17] MEDS: HYDROmorphone HCl 0.5 MG/0.5 ML SYRINGE IVPUSH ×4 (04:12→22:42)
[2023-02-17 06:43] LABS: Hematocrit 30.7 % (37.0-47.0); Hemoglobin 10.3 g/dl (12.0-16.0); Mean Corpuscular HGB Conc 33.6 g/dl (31.0-35.0); Mean Corpuscular Hemoglobin 29.9 pg (27.0-33.0); Mean Corpuscular Volume 89.2 fL (80.0-98.0); Mean Platelet Volume 10.8 fL (9.4-12.3); Platelet Count 103 X10*3/uL (160-400); Red Blood Count 3.44 X10*6/uL (4.20-5.50); Red Cell Distribution Width 14.1 % (11.0-16.0); White Blood Count 10.6 X10*3/uL (4.8-10.8)
[2023-02-17 07:25] LABS: Anion Gap 14 (12-20); Blood Urea Nitrogen 24 mg/dL (9-16); Calcium 8.7 mg/dL (8.4-10.2); Carbon Dioxide 23 mmol/L (22-29); Chloride 105 mmol/L (96-108); Creatinine Clr Calc Pharmacy 56.1; Estimated Glomerular Filt Rate > 60; Glucose Random 100 mg/dL (60-115); Potassium 3.9 mmol/L (3.3-5.1); Sodium 138 mmol/L (135-145)
[2023-02-17] MEDS: ondansetron HCL 4 MG/2 ML VIAL IVPUSH ×2 (09:56→18:28)
[2023-02-17] MEDS: Heparin Sodium,Porcine 5,000 UNIT/ML VIAL 5000 UNIT SUBCUT ×2 (09:56→21:01)
[2023-02-17] MEDS: cefTRIAXone sodium 2 GM in 0.9 % Sodium Chloride 50 ML IV (09:59)
[2023-02-17] MEDS: Metoprolol Succinate ER 50 MG TAB.ER.24H PO (10:21)
--- NOTE | 2023-02-17 10:28 | MHC.CM.PN ---
Per ROUNDS dc , anticipates dc on Monday, 02/20 and PT eval is pending. CM will follow.
--- NOTE | 2023-02-17 10:52 | P.PNIM_ITS ---
Subjective Subjective Date of Service: 02/17/23 Interval History: seen and examined this morning follow up for septic shock, bacteremia, obstructing stone having some left side pain denies sob Review of Systems Review of Systems: Yes all other systems are reviewed and are negative Constitutional Constitutional: Denies chills and Denies fever(s) ENT Ears, Nose, Mouth, and Throat: Denies dizziness Cardiovascular Cardiovascular: Denies chest pain, Denies palpitations and Denies dyspnea Respiratory Respiratory: Denies cough and Denies dyspnea Neurologic Neurologic: Denies dizziness Endocrine Endocrine: Denies palpitations Physical Exam Vital Signs: Vital Signs: Last Vital Signs Temp 98.3 F 02/17/23 07:21 Pulse 111 H 02/17/23 07:21 Resp 20 02/17/23 07:21 BP 138/84 02/17/23 07:21 Pulse Ox 95 02/17/23 07:21 O2 Del Method Nasal Cannula 02/17/23 07:21 O2 Flow Rate 2 02/17/23 07:21 BMI result Body Mass Index 31.2 Const: General: cooperative, comfortable, no acute distress, alert and awake Nutritional Appearance: overweight Orientation/consciousness: patient oriented x3 Resp: Effort & Inspection: normal respiratory effort, able to speak in com plete sentences, no respiratory distress and no use of accessory muscles Cardio: Rate: tachycardic Heart sounds: S1 normal heart sound present and S2 normal heart sound present GI: Inspection: No distended Palpation (GI): Soft to palpation and nontender Neuro: General: patient oriented x3, moves all extremities and CN's II-XI intact bilaterally Extrem: General: Yes no pedal edema Objective Data Active Medications Docusate Sodium (Docusate Sodium 100 Mg Capsule) 100 mg PO BEDTIME [facility] Last Admin: 02/16/23 21:32 Dose: 100 mg Documented By: MARINE Heparin Sodium (Porcine) (Heparin Sodium,Porcine 5,000 Unit/Ml Vial) 5,000 unit SUBCUT BID [facility] Last Admin: 02/17/23 09:56 Dose: 5,000 unit Documented By: JATIN Hydromorphone HCl (Hydromorphone Hcl 0.5 Mg/0.5 Ml Syringe) 0.5 mg IVPUSH Q4H PRN; Protocol PRN Reason: Pain, Severe (Pain Scale 7-10) Last Admin: 02/17/23 09:56 Dose: 0.5 mg Documented By: JATIN Ceftriaxone Sodium 2 gm/ (Sodium Chloride) 50 mls @ 100 mls/hr IV Q24H [facility] Last Infusion: 02/17/23 10:37 Dose: 0 mls/hr Documented By: JATIN Metoprolol Succinate (Metoprolol Succinate Er 50 Mg Tab.Er.24h) 50 mg PO DAILY [facility]; Protocol Last Admin: 02/17/23 10:21 Dose: 50 mg Documented By: JATIN Ondansetron HCl (Ondansetron Hcl 4 Mg/2 Ml Vial) 4 mg IVPUSH Q8H PRN PRN Reason: Nausea Last Admin: 02/17/23 09:56 Dose: 4 mg Documented By: JATIN Oxycodone HCl (Oxycodone Hcl Immed Release 5 Mg Tablet) 5 mg PO Q6H PRN PRN Reason: Pain, Moderate(Pain Scale 4-6) Last Admin: 02/16/23 16:50 Dose: 5 mg Documented By: ALYSSA Pharmacy Consult (Consult Rx Perform Med Rec) 1 each MISCELLANE ONCE PRN PRN Reason: Consult order Polyethylene Glycol (Polyethylene Glycol 3350 17 Gm Powd.Pack) 17 gm PO DAILY PRN PRN Reason: Constipation Last Admin: 02/16/23 12:03 Dose: 17 gm Documented By: ALYSSA Labs 02/17/23 06:09 02/17/23 06:09 Labs: Laboratory Results - last 24 hr 02/17/23 02/17/23 06:09 06:09 MCV 89.2 MCH 29.9 MCHC 33.6 RDW 14.1 Plt Count 103 L MPV 10.8 Absolute Nucleated RBC 0.000 Nucleated RBC % (auto) 0.0 Anion Gap 14 Estim Creat Clear Calc 56.1 Estimated GFR > 60 Random Glucose 100 Calcium 8.7 Microbiology Microbiology Results: Microbiology 02/13/23 20:20 Blood Culture - Final Blood - Venous Escherichia coli 02/13/23 20:20 Blood Culture - Final Blood - Venous Escherichia coli Assessment and Plan (1) E coli bacteremia: Status: Acute Plan This is a 67-year-old female with underlying CAD, hypertension GERD, spinal stenosis admitted on 02/13/2023 with flank pain and hypotension refractory to initial IV fluid support secondary to obstructive left renal calculus with mild hydronephrosis found to have E coli bacteremia.? Patient was started on broad- spectrum antibiotics and admitted to the intensive care unit.? Of note, patient is COVID positive for approximately 10 days prior to admission.? Patient had urologic stent placement on 02/14/2023 with improvement in left-sided pain and pressor requirements.?course complicated by fluid overload secondary to IVF resuscitation. downgraded to medical floor 02/15 septic shock secondary to e.coli UTi and bacteremia from obstructing left renal calculus s/p left renal stent placement 02/14 continue IV ceftraixone, started 02/15 ID consult pending Acute respiratory failure with hypoxia r/t fluid overload from IVF resuscitation received IV lasix x1 weaned to room air CESAR secondary to sepsis, obstructing stone resolved with IVF follow renal function losartan on hold Thrombocytopenia likely related to sepsis follow CBC Normocytic anemia related to acute illness H/H stable HTN bp meds on hold for sepsis norvasc, losartan will resume metoprolol sinus tachycardia likely r/t being off BB, will resume metoprolol HLD statin on hold Covid + tested positive 10+ days ago no significant symptoms dvt ppx - heparin attending - dr. sher dispo - seen by PT - home with PT services patient requires ongoing inpatient hospitalization for management of bacteremia, CESAR Time Spent With Patient Time: Total time managing care of this patient today ____ minutes. Quality Stroke Does the patient have a stroke diagnosis?: No VTE Prior VTE?: No VTE Risk Level:: Medical - moderate - high VTE Device Contraindication: N/A - Device Ordered VTE Drug Contraindication: N/A - Med Ordered
[2023-02-17] MEDS: Docusate Sodium 100 MG CAPSULE PO (21:01)
[2023-02-17] MEDS: oxyCODONE HCl Immed Release 5 MG TABLET PO (21:03)
[2023-02-18] MEDS: HYDROmorphone HCl 0.5 MG/0.5 ML SYRINGE IVPUSH ×4 (03:11→23:53)
[2023-02-18] MEDS: ondansetron HCL 4 MG/2 ML VIAL IVPUSH ×3 (03:12→21:13)
[2023-02-18 05:26] VITALS: BMI 31.6
[2023-02-18] MEDS: oxyCODONE HCl Immed Release 5 MG TABLET PO ×3 (05:54→21:13)
[2023-02-18 07:50] VITALS: BP 168/87; PULSE 114; RESP 19; TEMP 37.1; O2SAT 92
[2023-02-18] MEDS: Heparin Sodium,Porcine 5,000 UNIT/ML VIAL 5000 UNIT SUBCUT ×2 (08:59→21:13)
[2023-02-18] MEDS: Metoprolol Succinate ER 100 MG TAB.ER.24H PO (08:59)
[2023-02-18] MEDS: cefTRIAXone sodium 2 GM in 0.9 % Sodium Chloride 50 ML IV (09:00)
[2023-02-18 09:35] LABS: D Dimer High Sensitivity 1041 NG/ML
[2023-02-18 09:43] LABS: Anion Gap 13 (12-20); Blood Urea Nitrogen 20 mg/dL (9-16); Calcium 8.9 mg/dL (8.4-10.2); Carbon Dioxide 23 mmol/L (22-29); Chloride 101 mmol/L (96-108); Creatinine Clr Calc Pharmacy 57.1; Estimated Glomerular Filt Rate > 60; Glucose Random 170 mg/dL (60-115); Magnesium 1.8 mg/dL (1.6-2.6); Potassium 3.4 mmol/L (3.3-5.1); Sodium 134 mmol/L (135-145)
--- NOTE | 2023-02-18 10:12 | P.PNIM_ITS ---
Subjective Subjective Date of Service: 02/18/23 Interval History: seen and examined this morning follow up for septic shock, bacteremia, obstructing stone denies pain Review of Systems Review of Systems: Yes all other systems are reviewed and are negative Constitutional Constitutional: Denies chills and Denies fever(s) ENT Ears, Nose, Mouth, and Throat: Denies dizziness Cardiovascular Cardiovascular: Denies chest pain, Denies palpitations and Denies dyspnea Respiratory Respiratory: Denies cough and Denies dyspnea Neurologic Neurologic: Denies dizziness Endocrine Endocrine: Denies palpitations Physical Exam Vital Signs: Vital Signs: Last Vital Signs Temp 98.8 F 02/18/23 07:50 Pulse 114 H 02/18/23 07:50 Resp 19 02/18/23 07:50 BP 168/87 H 02/18/23 07:50 Pulse Ox 92 02/18/23 07:50 O2 Del Method Room Air 02/18/23 07:50 O2 Flow Rate 2 02/17/23 07:21 BMI result Body Mass Index 31.6 Appearing in no acute distress lung sounds are clear to auscultation heart regular rate rhythm, clear S1, S2 positive bowel sounds, abdomen is soft, nontender neuro patient is alert x3, no focal deficits Objective Data Active Medications Docusate Sodium (Docusate Sodium 100 Mg Capsule) 100 mg PO BEDTIME [facility] Last Admin: 02/17/23 21:01 Dose: 100 mg Documented By: CANDY Furosemide (Furosemide 20 Mg/2 Ml Vial) 20 mg IVPUSH BID@0900,1800 [facility]; Protocol Heparin Sodium (Porcine) (Heparin Sodium,Porcine 5,000 Unit/Ml Vial) 5,000 unit SUBCUT BID [facility] Last Admin: 02/18/23 08:59 Dose: 5,000 unit Documented By: DIMA Hydromorphone HCl (Hydromorphone Hcl 0.5 Mg/0.5 Ml Syringe) 0.5 mg IVPUSH Q4H PRN; Protocol PRN Reason: Pain, Severe (Pain Scale 7-10) Last Admin: 02/18/23 09:00 Dose: 0.5 mg Documented By: DIMA Ceftriaxone Sodium 2 gm/ (Sodium Chloride) 50 mls @ 100 mls/hr IV Q24H [facility] Last Infusion: 02/18/23 10:04 Dose: 0 mls/hr Documented By: DIMA Metoprolol Succinate (Metoprolol Succinate Er 100 Mg Tab.Er.24h) 100 mg PO DAILY [facility]; Protocol Last Admin: 02/18/23 08:59 Dose: 100 mg Documented By: DIMA Ondansetron HCl (Ondansetron Hcl 4 Mg/2 Ml Vial) 4 mg IVPUSH Q8H PRN PRN Reason: Nausea Last Admin: 02/18/23 03:12 Dose: 4 mg Documented By: MICHELLE Oxycodone HCl (Oxycodone Hcl Immed Release 5 Mg Tablet) 5 mg PO Q6H PRN PRN Reason: Pain, Moderate(Pain Scale 4-6) Last Admin: 02/18/23 05:54 Dose: 5 mg Documented By: MICHELLE Pharmacy Consult (Consult Rx Perform Med Rec) 1 each MISCELLANE ONCE PRN PRN Reason: Consult order Polyethylene Glycol (Polyethylene Glycol 3350 17 Gm Powd.Pack) 17 gm PO DAILY PRN PRN Reason: Constipation Last Admin: 02/16/23 12:03 Dose: 17 gm Documented By: ALYSSA Labs 02/17/23 06:09 02/18/23 09:08 Labs: Laboratory Results - last 24 hr 02/18/23 02/18/23 09:08 09:08 D-Dimer High Sensitivty 1041 Anion Gap 13 Estim Creat Clear Calc 57.1 Estimated GFR > 60 Random Glucose 170 H Calcium 8.9 Magnesium 1.8 Assessment and Plan (1) E coli bacteremia: Status: Acute Plan 67-year-old female with underlying CAD, hypertension GERD, spinal stenosis admitted on 02/13/2023 with flank pain and hypotension refractory to initial IV fluid support secondary to obstructive left renal calculus with mild hydronephrosis found to have E coli bacteremia.? Patient was started on broad- spectrum antibiotics and admitted to the intensive care unit.? Of note, patient is COVID positive for approximately 10 days prior to admission.? Patient had urologic stent placement on 02/14/2023 with improvement in left-sided pain and pressor requirements.?course complicated by fluid overload secondary to IVF resuscitation. downgraded to medical floor 02/15 Tachycardia ddimer 1041 CTA pending Septic shock secondary to e.coli UTi and bacteremia from obstructing left renal calculus s/p left renal stent placement 02/14 continue IV ceftraixone, started 02/15 ID consult pending Acute respiratory failure with hypoxia r/t fluid overload from IVF resuscitation lasix IV BID for now CESAR. resolved secondary to sepsis, obstructing stone resolved with IVF follow renal function losartan on hold Thrombocytopenia likely related to sepsis follow CBC Normocytic anemia related to acute illness H/H stable HTN bp meds on hold for sepsis will resume metoprolol HLD statin on hold Covid + tested positive 10+ days ago no significant symptoms dvt ppx - heparin attending - dr. Martínez dispo - seen by PT - home with PT services patient requires ongoing inpatient hospitalization for management of bacteremia, CESAR Time Spent With Patient Time: Total time managing care of this patient today ____ minutes. Quality Stroke Does the patient have a stroke diagnosis?: No VTE Prior VTE?: No VTE Risk Level:: Medical - moderate - high VTE Device Contraindication: N/A - Device Ordered VTE Drug Contraindication: N/A - Med Ordered
[2023-02-18] MEDS: iohexoL 350 MG/ML 100 ML INFUS..BTL 65 ML IV (11:45)
[2023-02-18 12:00] VITALS: BP 168/84; PULSE 93; RESP 19; TEMP 36.4; O2SAT 103
--- NOTE | 2023-02-18 12:43 | W.PM.IDCN ---
History of Present Illness Data of Consult Service Date: 02/17/23 Requesting physician: Viky Loera Primary Care Provider: Katelynn Young MD HPI Reason for consult: sepsis She presents with nausea,vomiting and bilateral flank pain for a day on 02/13. She has no fever at this time. She has urine and blood cultures E coli on 02/13. She received left proximal stent from Urology after 3 mm left ureteral calculus found. She feels better. Review of Systems Review of Systems: Yes all other systems are reviewed and are negative [facility] Family History Family history: reviewed and not pertinent Social History Social History Household Members: Family Housing: House Do you presently have visiting nurse or other home services: No Alcohol intake: never Patient Tobacco Use Status: Never used Tobacco Smoked in Last 30 Days: No e-Cigarette/Vaping Use: Never Used Patient Interested in Nicotine Replacement: No Patient Given Instructions on How to Stop Smoking: No Second Hand Smoke Exposure: No Use of substances other than those prescribed or required for medical reasons: No Currently Displaying Signs/Symptoms of Drug Intoxication Withdrawal: No Any prior treatment program specific to substance use: No Have you been hit, kicked, punched, or otherwise hurt by someone within the past year? If so, by whom?: No Do you feel safe in your current relationship?: No Current Relationship Is there a partner from a previous relationship who is making you feel unsafe now?: No Advance Directives: No Advance Directives Information Provided: No Advance Directives on File: No Do you have thoughts of harming others: None Do you have a plan to hurt others: No Plan Recently lost weight without trying: No Nutrition Risks: No Nutritional Risk Patient : No : No Poor oral hygiene: No service: No Meds Allergies Allergy/AdvReac Type Severity Reaction Status Date / Time atenolol [ATENOLOL] Allergy Unknown COUGH Verified 02/13/23 18:49 ADHESIVE BANDAGE Allergy Unknown RASH Uncoded 06/11/20 15:51 Active Medications: Current Medications Docusate Sodium (Docusate Sodium 100 Mg Capsule) 100 mg PO BEDTIME [facility] Last Admin: 02/17/23 21:01 Dose: 100 mg Heparin Sodium (Porcine) (Heparin Sodium,Porcine 5,000 Unit/Ml Vial) 5,000 unit SUBCUT BID [facility] Last Admin: 02/18/23 08:59 Dose: 5,000 unit Hydromorphone HCl (Hydromorphone Hcl 0.5 Mg/0.5 Ml Syringe) 0.5 mg IVPUSH Q4H PRN; Protocol PRN Reason: Pain, Severe (Pain Scale 7-10) Last Admin: 02/18/23 09:00 Dose: 0.5 mg Ceftriaxone Sodium 2 gm/ (Sodium Chloride) 50 mls @ 100 mls/hr IV Q24H [facility] Last Infusion: 02/18/23 10:04 Dose: Infused Metoprolol Succinate (Metoprolol Succinate Er 100 Mg Tab.Er.24h) 100 mg PO DAILY [facility]; Protocol Last Admin: 02/18/23 08:59 Dose: 100 mg Ondansetron HCl (Ondansetron Hcl 4 Mg/2 Ml Vial) 4 mg IVPUSH Q8H PRN PRN Reason: Nausea Last Admin: 02/18/23 12:35 Dose: 4 mg Oxycodone HCl (Oxycodone Hcl Immed Release 5 Mg Tablet) 5 mg PO Q6H PRN PRN Reason: Pain, Moderate(Pain Scale 4-6) Last Admin: 02/18/23 12:34 Dose: 5 mg Pharmacy Consult (Consult Rx Perform Med Rec) 1 each MISCELLANE ONCE PRN PRN Reason: Consult order Polyethylene Glycol (Polyethylene Glycol 3350 17 Gm Powd.Pack) 17 gm PO DAILY PRN PRN Reason: Constipation Last Admin: 02/16/23 12:03 Dose: 17 gm Home Medications Medication Instructions Recorded Confirmed Last Taken Type amlodipine 10 mg tablet 10 mg PO DAILY 02/13/23 02/13/23 Unknown History atorvastatin 40 mg tablet 40 mg PO DAILY 02/13/23 02/13/23 Unknown History cholecalciferol (vitamin D3) 50 50 mcg PO DAILY 02/13/23 02/13/23 Unknown History mcg (2,000 unit) capsule losartan 100 mg tablet 100 mg PO DAILY 02/13/23 02/13/23 Unknown History metoprolol succinate 100 mg 100 mg PO DAILY 02/13/23 02/13/23 Unknown History tablet,extended release 24 hr naproxen 500 mg tablet 500 mg PO BIDWM 02/13/23 02/13/23 Unknown History omeprazole 20 mg capsule,delayed 20 mg PO DAILY@0630 02/13/23 02/13/23 Unknown History release Physical Exam Vital Signs: Vital Signs: Last Vital Signs Temp 97.6 F 02/18/23 12:00 Pulse 93 02/18/23 12:00 Resp 19 02/18/23 12:00 BP 168/84 H 02/18/23 12:00 Pulse Ox 103 H 02/18/23 12:00 O2 Del Method Room Air 02/18/23 12:00 O2 Flow Rate 2 02/17/23 07:21 BMI result Body Mass Index 31.6 Const: General: cooperative HEENT: Head: Yes normal to inspection Face and sinus: Yes normal facial exam Mouth: Normal oral and palatal mucosa present Teeth and gingiva: dentition normal Eyes: General: appearance normal, both eyes and all related structures Pupils: Equal, round and reactive pupils present Resp: Effort & Inspection: normal respiratory effort Cardio: Rate: regular rate Rhythm: regular rhythm GI: Palpation (GI): Soft to palpation and nontender : General: Yes no CVA tenderness Back/Spine/Pelvis: Back: no CVA tenderness Skin: General skin exam: no rashes or lesions noted Neuro: General: moves all extremities Cranial nerves: Yes Equal, round and reactive pupils present Extrem: General: Yes normal to inspection Psych: Appearance: grossly normal Results Labs 02/17/23 06:09 02/18/23 09:08 Labs: BMP 02/18/23 09:08 Sodium 134 L Potassium 3.4 Chloride 101 Carbon Dioxide 23 BUN 20 H Creatinine 0.89 Calcium 8.9 Microbiology Microbiology Results: Microbiology 02/13/23 20:20 Blood - Venous Blood Culture - Final Escherichia coli 02/13/23 20:20 Blood - Venous Blood Culture - Final Escherichia coli 02/13/23 Unknown Urine clean catch - Urine stanton top Urine Culture - Final Escherichia coli Assessment and Plan (1) E coli bacteremia: Status: Acute She has E coli bacteremia in setting of urinary calculus and is feeling better She has stent in place. (2) Septic shock: Status: Acute (3) Hydronephrosis with urinary obstruction due to renal calculus: Status: Acute Plan IV Ceftriaxone until improved and then finish total 14 day course of antibiotics with po Ceftin 500 mg bid. Time Spent With Patient Time: Total time managing care of this patient today ____ minutes.
[2023-02-18 15:21] VITALS: BP 162/85; PULSE 108; RESP 17; TEMP 36.6; O2SAT 93
[2023-02-18 19:15] VITALS: BP 144/84; PULSE 104; RESP 17; TEMP 37.4; O2SAT 93
[2023-02-19] VITALS: BP 160/86; PULSE 104; RESP 20; TEMP 36.5; O2SAT 94
[2023-02-19 03:51] VITALS: BP 160/80; PULSE 88; RESP 20; TEMP 36.1; O2SAT 94
[2023-02-19 05:31] VITALS: BMI 30.5
[2023-02-19] MEDS: HYDROmorphone HCl 0.5 MG/0.5 ML SYRINGE IVPUSH (06:22)
[2023-02-19 07:24] VITALS: BP 167/81; PULSE 98; RESP 20; TEMP 36.2; O2SAT 94
[2023-02-19] MEDS: Atorvastatin Calcium 40 MG TABLET PO (08:24)
[2023-02-19] MEDS: Cholecalciferol (Vitamin D3) 25 MCG TABLET 50 MCG PO (08:24)
[2023-02-19] MEDS: Heparin Sodium,Porcine 5,000 UNIT/ML VIAL 5000 UNIT SUBCUT (08:24)
[2023-02-19] MEDS: amLODIPine Besylate 10 MG TABLET PO (08:24)
[2023-02-19] MEDS: Metoprolol Succinate ER 100 MG TAB.ER.24H PO (08:25)
[2023-02-19] MEDS: ondansetron HCL 4 MG/2 ML VIAL IVPUSH (08:25)
[2023-02-19] MEDS: 0.9 % Sodium Chloride 1,000 ML 100 ML IVCONT (08:27)
[2023-02-19] MEDS: cefTRIAXone sodium 2 GM in 0.9 % Sodium Chloride 50 ML IV (10:16)
--- NOTE | 2023-02-19 10:25 | P.DS_ITS ---
DS: Providers Provider Date of Service: 02/19/23 Date of admission: 02/13/23 22:58 Primary care physician: Katelynn Young MD Consults: 02/13/23 20:36 Consult to Urology Stat Consulting Provider: Marcial Crowell Reason for consultation: stone 02/16/23 11:16 Consult to Infectious Diseases Routine Consulting Provider: [facility] Infectious Disease Reason for consultation: bacteremia Has provider been notified: No DS: Diagnosis Discharge Diagnosis (1) E coli bacteremia: Status: Acute (2) Hydronephrosis with urinary obstruction due to renal calculus: Status: Acute (3) Septic shock: Status: Acute DS: Summary Hospital Course Hospital Course: HP as per admitting provider 67-year-old patient with underlying history of coronary disease status post 2 stents about 10 years ago, hypertension, hyperlipidemia, vitamin-D deficiency, GERD, chronic joint and back pain due to lumbar spinal stenosis among other things, presents to us after being seen in the emergency room last night due to complaints of flank pain. ?Patient reported to be COVID positive which was diagnosed 10 days ago, had presented to with complaints of nausea, vomiting, diarrhea and bilateral flank pain since yesterday, according to her her pain is 10/10 but it does not feel that is coming from her chronic back pain as it feels different, more on the flanks, 10/10, nonradiating, associated with the above-mentioned symptoms, nothing has made it better worse in spite of trying to take naproxen for her pain. In the ER, the patient was noted to be hypotensive, tachycardic however afebrile, her overall workup reveal white count of 12.8, H&H of 12.5 and 36.5 respectively, platelets 218, 21% bands, sodium 137, potassium 4.2, chloride 106, carbon dioxide 17, anion gap 18, BUN 42, creatinine 1.94.? Initial lactic acid 3.8, has however come down to 3.6, magnesium 1.0.? BNP 260, troponin 34.5, 46.6, albumin 3.2. Venous blood gas shows pH of 7.38, pCO2 31, P 0 244, HC03 19. Urinalysis shows proteinuria, hematuria, positive nitrates with large amount of leukocyte esterases, more than 50 white blood cells and no epithelial cells. Patient rece ivy 30 mL/kg of IV fluids, started on antibiotics, troponin was recycle given her underlying history of coronary disease but it did not show any significant increase.? She did receive some IV magnesium and was started on Levophed given the lack of of improvement of her blood pressure with IV fluids. Currently patient still complains of pain despite of fentanyl given earlier, denies any other associated symptoms despite the above mentioned.? Patient will be transferred to ICU for further care . ? Tachycardia. Resolved ddimer 1041 CTA neg for PE secondary to bacteremia Septic shock secondary to e.coli UTi and bacteremia from obstructing left renal calculus s/p left renal stent placement 02/14 Treated with IV ceftraixone, started 02/15 home with ceftin 500mg BID for total 14 days follow up with urology for o/p follow up and stent removal Acute respiratory failure with hypoxia treated with IV lasix Resolved CESAR. resolved secondary to sepsis, obstructing stone resolved with IVF follow renal function losartan stopped Thrombocytopenia likely related to sepsis Normocytic anemia related to acute illness HTN bp meds on hold for sepsis will resume metoprolol HLD statin Covid + tested positive 10+ days ago no significant symptoms Time Spent with Patient Time attestation: Total time managing care of this patient today ____ minutes. Discharge coordination time: Greater than 30 minutes Quality: Safe Use of Opioids Does Pt have an Active Cancer Diagnosis on the Problem List?: No Quality: Stroke Does the patient have a stroke diagnosis?: No Physical Exam Vital Signs: Vital Signs: Last Vital Signs Temp 97.2 F 02/19/23 07:24 Pulse 98 02/19/23 07:24 Resp 20 02/19/23 07:24 BP 167/81 H 02/19/23 07:24 Pulse Ox 94 02/19/23 07:24 O2 Del Method Room Air 02/19/23 07:24 O2 Flow Rate 2 02/17/23 07:21 BMI result Body Mass Index 30.5 Appearing in no acute distress head is normocephalic atraumatic eyes pupils are PERRLA sclera is anicteric mouth throat mucous membranes are intact and moist neck is supple no lymphadenopathy, no JVD noted lung sounds are clear to auscultation heart regular rate rhythm, clear S1, S2 positive bowel sounds, abdomen is soft, nontender neuro patient is alert x3, no focal deficits Discharge Plan Discharge Anticipated Discharge Date/Time: 02/19/23 10:40 Patient Disposition: Home, Self-Care Discharge Diagnosis: CESAR Septic shock E coli UTI E coli bacteremia Acute respiratory failure with hypoxia Thrombocytopenia Normocytic anemia Referrals: Alivia Kolb MD [Physician] - 1 Week Katelynn Young MD [Primary Care Provider] - 1 Week Discharge Medications: New cefuroxime axetil 500 mg tablet 500 mg PO BID Qty: 24 0RF oxycodone 5 mg tablet 5 mg PO Q8H PRN (Reason: pain) Qty: 9 0RF Rx Instructions: Partial Fill upon patient request. Continued atorvastatin 40 mg tablet 40 mg PO DAILY metoprolol succinate 100 mg tablet extended release 24 hr 100 mg PO DAILY amlodipine 10 mg tablet 10 mg PO DAILY omeprazole 20 mg capsule,delayed release(DR/EC) 20 mg PO DAILY@0630 naproxen 500 mg tablet 500 mg PO BIDWM cholecalciferol (vitamin D3) 50 mcg (2,000 unit) capsule 50 mcg PO DAILY Discontinued losartan 100 mg tablet 100 mg PO DAILY Discharge Orders: Discharge Order (Routine); Ordered 02/19/23 Ordered By: Leila Valladares Diet: Advance to usual diet Activity on Discharge: As tolerated Stand Alone Forms: Patient Portal Discharge page, Work/School Release Care Plan Goals: Stent removal as per Urology Follow-up with primary care provider regarding standing time off from work Health Concerns: CESAR Septic shock E coli UTI E coli bacteremia Acute respiratory failure with hypoxia Thrombocytopenia Normocytic anemia Plan of Treatment: Follow-up with urologist for outpatient appointment Take all medications as prescribed Assessment: See discharge summary
--- NOTE | 2023-02-19 11:13 | MHC.CM.PN ---
DP: PT HAS BEEN MEDICALLY CLEARED FOR DC HOME, NO SERVICES. SISTER WILL TRANSPORT HOME.
== END 2023-02-19 11:34 | disposition home or self-care (01) | DRG 853 ==
LOC: HO.ED 21:10 → HO.EDOVER 23:20 → HO.ICU 23:34 → HO.IMC 02-15 14:03
PROVIDERS: Internal Medicine Pulmonary Disease; Physician Assistant; Physician Assistant Medical; Urology; Admitting Provider Physician Assistant Medical; Emergency Provider Internal Medicine; PCP Internal Medicine; Visit Provider Nurse Practitioner Acute Care
PROC: 0TJB8ZZ Inspection of Bladder, Via Natural or Artificial Opening Endoscopic (ICD-10-PCS; CPT 52000; principal; 2023-02-14 16:00)
DX: A41.51 Sepsis due to Escherichia coli [E. coli] (principal); J96.01 Acute respiratory failure with hypoxia; R65.21 Severe sepsis with septic shock; U07.1 COVID-19; N17.9 Acute kidney failure, unspecified; N13.6 Pyonephrosis; E87.21 Acute metabolic acidosis; E78.5 Hyperlipidemia, unspecified; E86.0 Dehydration; E83.42 Hypomagnesemia; R00.0 Tachycardia, unspecified; T44.7X6A Underdosing of beta-adrenoreceptor antagonists, initial encounter; I25.10 Atherosclerotic heart disease of native coronary artery without angina pectoris; D64.9 Anemia, unspecified; T39.315A Adverse effect of propionic acid derivatives, initial encounter; E88.09 Other disorders of plasma-protein metabolism, not elsewhere classified; E87.79 Other fluid overload; D69.59 Other secondary thrombocytopenia; Z79.899 Other long term (current) drug therapy
CPT/HCPCS: 36415; 71045; 71275; 74176; 80048; 80053; 81001; 82040; 82803; 83605; 83690; 83735; 83880; 84100; 84484; 85007; 85025; 85027; 85379; 87040; 87077; 87086; 87088; 87186; 87205; 87635; 93005; 97161; 99285; C1758; C1769; C2617; J0696; J1100; J1170; J1643; J1885; J1940; J2250; J2405; J2543; J3010; J3475; P9047; Q9967

== ENCOUNTER → 2023-03-16 09:09 | Outpatient (BNVA) | payer OTHER, SELFPAY | PROVIDERS: PCP Internal Medicine; Visit Provider Urology ==

== ENCOUNTER 2023-03-21 12:08 | Day surgery (SDC) | payer OTHER, SELFPAY ==
--- NOTE | 2023-03-20 11:47 | HO.ANESPROP2 ---
Documented by User: Rashmi Hays NP 03/20/23 11:51 HPI - Anesthesia Eval Consult details Narrative: 67yo F for Left Cystoscopy, Ureteroroscopy, Retro, Laser,with stent exchange [facility] admit 01/2023 with urosepsis from obstructive L renal stone s/p cysto 01/2023 with GA PMFSH Active Problems Active Problems: All Active Problems (Updated 03/16/23 @ 10:07 by Johana Lerma) Left renal stone (Acute) Obstructive uropathy (Acute) Left ureteral stone (Acute) Past Medical History Medical History CAD (coronary artery disease) Hydronephrosis with urinary obstruction due to renal calculus Social History Social History Household Members: Family Housing: House Do you presently have visiting nurse or other home services: No Alcohol intake: never Patient Tobacco Use Status: Never used Tobacco e-Cigarette/Vaping Use: Never Used Second Hand Smoke Exposure: No Use of substances other than those prescribed or required for medical reasons: No Are you DNR?: No Advance Directives: No Advance Directives Information Provided: Yes service: No Meds Allergies Allergy/AdvReac Type Severity Reaction Status Date / Time atenolol [ATENOLOL] Allergy Unknown COUGH Verified 02/13/23 18:49 ADHESIVE BANDAGE Allergy Unknown RASH Uncoded 06/11/20 15:51 Home Medications Medication Instructions Recorded Confirmed Last Taken Type amlodipine 10 mg tablet 10 mg PO DAILY 02/13/23 02/13/23 Unknown History atorvastatin 40 mg tablet 40 mg PO DAILY 02/13/23 02/13/23 Unknown History cholecalciferol (vitamin D3) 50 50 mcg PO DAILY 02/13/23 02/13/23 Unknown History mcg (2,000 unit) capsule metoprolol succinate 100 mg 100 mg PO DAILY 02/13/23 02/13/23 Unknown History tablet,extended release 24 hr naproxen 500 mg tablet 500 mg PO BIDWM 02/13/23 02/13/23 Unknown History omeprazole 20 mg capsule,delayed 20 mg PO DAILY@0630 02/13/23 02/13/23 Unknown History release Exam Exam Date and Time: March 20, 2023 1148 Pertinent Lab Results Pertinent Lab Results: Laboratory Tests 02/17/23 02/18/23 06:09 09:08 WBC 10.6 Hgb 10.3 L Hct 30.7 L Plt Count 103 L Sodium 134 L Potassium 3.4 Chloride 101 Carbon Dioxide 23 BUN 20 H Creatinine 0.89 Narrative Narrative: EKG 01/2023 Vent. Rate : 103 BPM ? ? Atrial Rate : 103 BPM ?? P-R Int : 152 ms? QRS Dur : 082 ms ? ? QT Int : 346 ms ? ? ? P-R-T Axes : 054 015 033 degrees ?? QTc Int : 453 ms ? Sinus tachycardia Nonspecific ST and T wave abnormality Abnormal ECG No previous ECGs available ? Assessment and Plan Assessment Anesthesia Assessment: Chart Reviewed Documented by User: Giles Easton MD 03/21/23 16:18 [facility] Past Medical History Medical History CAD (coronary artery disease) Hydronephrosis with urinary obstruction due to renal calculus Family History Family history of problems with anesthesia: No Surgical History History of Problems with Anesthesia: No Social History Social History Household Members: Family Housing: House Do you presently have visiting nurse or other home services: No Alcohol intake: never Patient Tobacco Use Status: Never used Tobacco e-Cigarette/Vaping Use: Never Used Second Hand Smoke Exposure: No Use of substances other than those prescribed or required for medical reasons: No Are you DNR?: No Advance Directives: No Advance Directives Information Provided: Yes service: No Meds Allergies Allergy/AdvReac Type Severity Reaction Status Date / Time atenolol [ATENOLOL] Allergy Unknown COUGH Verified 02/13/23 18:49 ADHESIVE BANDAGE Allergy Unknown RASH Uncoded 06/11/20 15:51 Home Medications Medication Instructions Recorded Confirmed Last Taken Type amlodipine 10 mg tablet 10 mg PO DAILY 02/13/23 02/13/23 Unknown History atorvastatin 40 mg tablet 40 mg PO DAILY 02/13/23 02/13/23 Unknown History cholecalciferol (vitamin D3) 50 50 mcg PO DAILY 02/13/23 02/13/23 Unknown History mcg (2,000 unit) capsule metoprolol succinate 100 mg 100 mg PO DAILY 02/13/23 02/13/23 Unknown History tablet,extended release 24 hr naproxen 500 mg tablet 500 mg PO BIDWM 02/13/23 02/13/23 Unknown History omeprazole 20 mg capsule,delayed 20 mg PO DAILY@0630 02/13/23 02/13/23 Unknown History release Exam Airway Mallampati Class: II TM Dist: >3cm Neck ROM: Full Denture: Upper Loose/Missing/Broken Teeth: Yes Assessment and Plan Assessment Anesthesia Assessment: Anesthesia Plan Discussed Final Anesthetic Review Family History of Problems with Anesthesia: No History of Problems with Anesthesia: No NPO: Yes ASA Class: II Final Preanesthetic Review: No Changes in Pt Med Stat, Meds/Allgs Chart Reviewed, Consent Obtained/Reviewed and Anes Risks/Benef Reviewed Patient Risk: Low Procedure Risk: Low Anesthetic Plan Anesthetic Plan: GA Disposition: Standard PACU
[2023-03-21] VITALS (8 sets, daily range): BP systolic 142–158; BP diastolic 70–85; PULSE 81–90; RESP 16–17; TEMP 36.2–36.5; O2SAT 93–98; BMI 28.2
--- NOTE | ~2023-03-21 | FL_ITS ---
EXAMINATION: XR FLUOROSCOPY WITH IMAGES CLINICAL INFORMATION: Left ureteral stone. COMPARISON: CT of the abdomen and pelvis January 2023 TECHNIQUE: Fluoroscopy Supervised By: Dr. Kolb. Fluoroscopy Time: 14.4 seconds. Cumulative Dose: 3.00 mGy. DAP: Gycm2. Images: 1. FINDINGS: Image demonstrates wire projecting over the left renal collecting system and ureter. FL/FL guidance in OR IMPRESSION: Fluoroscopy guidance for urology procedure
[2023-03-21] MEDS: Lactated Ringers 1,000 ML 100 ML IVCONT (14:32)
--- NOTE | 2023-03-21 18:00 | W.PM.OPN ---
Operative Note Operative Note Date of Service: 03/21/23 Narrative: PreOperative Diagnosis:?? Left ureteral stone status post stent Post Operative Diagnosis:?? Left ureteral stone status post stent Procedure: Cystoscopy, Left ureteroscopy Stone extraction Stent removal Surgeon:?Dr Moo Forbes Anesthesia:? General Indications for procedure: Here for stone management. Procedure: After informed consent was verified the patient was brought to the operating placed on the OR table in supine position.? General Anesthesia was administered per protocol.? The patient was placed in lithotomy position, prepped and draped in the usual sterile fashion.? Safety pause time-out and side of surgery confirmed.? Antibiotics confirmed. A 22 Armenian cystoscope was inserted transurethrally, The bladder was visualized.? Both ureteric orifices were in normal position. The left ureteral stent was curled in the bladder. The? distal end of the left ureteral stent was grasped with the flexible grasping forceps. The stent was pulled retrograde through the urethra. A guidewire was passed through the stent. The cystoscope was removed, leaving the guidewire in place. The guidewire was used as the safety and was attached to the draping. The semi rigid ureteroscope was passed transurethrally into the left ureter at the proximal ureter there was mild inflammatory change consistent with a stone be lodged in that area. Slightly proximal right at the UPJ there were 2 stone fragments seen. The 0 degree basket was used to remove each stone fragment, the larger fragment was sent for analysis. The ureteroscope was removed. The cystoscope was passed into the bladder and the guidewire was removed. The bladder was emptied.? The rigid cystoscope was removed. ? The patient tolerated the procedure well and was brought to the recovery room in stable condition. Complications: None Drains: None
[2023-03-21] MEDS: HYDROmorphone HCl 2 MG TABLET PO (18:12)
[2023-03-21] MEDS: Ketorolac Tromethamine 30 MG/ML VIAL IVPUSH (18:13)
[2023-03-28 01:04] LABS: Stone Source URETERAL STONE
== END 2023-03-21 19:03 | disposition home or self-care (01) ==
PROVIDERS: PCP Internal Medicine; Visit Provider Urology
PROC: (CPT 52352; principal; 2023-03-21 14:20)
DX: N13.2 Hydronephrosis with renal and ureteral calculous obstruction (principal); Z46.6 Encounter for fitting and adjustment of urinary device; N13.9 Obstructive and reflux uropathy, unspecified; I25.10 Atherosclerotic heart disease of native coronary artery without angina pectoris; Z95.5 Presence of coronary angioplasty implant and graft; I10 Essential (primary) hypertension; E78.5 Hyperlipidemia, unspecified; Z79.1 Long term (current) use of non-steroidal anti-inflammatories (NSAID); Z79.899 Other long term (current) drug therapy; L23.1 Allergic contact dermatitis due to adhesives; Z88.8 Allergy status to other drugs, medicaments and biological substances; Z86.16 Personal history of COVID-19
CPT/HCPCS: 52352; 82365; 88300; C1758; C1769; J0690; J1885; J2405; J3010; Q9967

== ENCOUNTER 2023-04-19 15:04 | Outpatient (AMB) | payer OTHER, SELFPAY ==
--- NOTE | 2023-04-19 07:13 | MHC.OFFVIS ---
Intake Intake Visit Reasons: 4w post op follow up Allergies atenolol [ATENOLOL] Allergy (Unknown, Verified 04/19/23 16:06) COUGH ADHESIVE BANDAGE Allergy (Unknown, Uncoded 04/19/23 16:06) RASH HPI HPI Comments History of Present Illness Details Mariella is a 67-year-old female who presents today to the office for a follow-up visit. 03/16/23-- She was initially evaluated by Dr. Crowell as an inpatient consult on 02/14/23 for UTI sepsis and left ureteral stone with obstructive uropathy. The patient is s/p left ureteral stent on 02/14/23. Initial CAT scan from -02/13/23 reports left proximal ureteral stone with a 4 mm stone in the upper pole of the left kidney. past medical history significant for coronary artery disease? s/p 2 stents placement about 10 years ago, hypertension, hyperlipidemia, chronic joint and back pain due to lumbar spinal stenosis. The patient states having bilateral back and side pain. She is taking naproxen 500 mg BID for pain management. States having COVID infection in the past.? The patient is having pain and urgency related to the stent, currently managed with the naproxen, she states if she stands for long periods the pain is exacerbated.? [facility] paperwork completed, Plan for Cystoscopy, Left ureteroscopy, possible laser lithotripsy, stent exchange.? Risks discussed included but not limited to, possible need to repeat procedure if stone is not completely fragmented, Irritative voiding symptoms, bladder spasms, urgency, blood in urine. On today's visit --04/19/2023--Mariella is a 67-year-old female who presents to the office for follow-up for post op evaluation.? She was last seen on 03/16/2023. The patient is s/p left ureteral stent on 02/14/23. She also had Cystoscopy, left ureteroscopy, and stone extraction done on 03/21/2023. I discussed stone analysis is primarily calcium oxalate stone. She had a history of chronic joint and back pain due to lumbar spinal stenosis. She reports that her left side of the back is still sore.? She states that she is not drinking adequate amount of fluids. She mentions having urinary urgency with intermittent urinary incontinence if she can't get to the bathroom in time. She denies any dysuria, hematuria. Results reviewed ? CAT scan of the abdomen/pelvis without IV contrast ? 02/13/2023. 3 mm obstructing proximal left ureteral calculus with mild hydronephrosis and marked perinephric stranding presumably secondary to forniceal rupture. There is at least one other nonobstructing left intrarenal calculus Plan:? Ordered renal US. Encouraged the patient to increase her fluid intake.? Follow up in 4 weeks to discuss renal US, and follow-up in 4 months for 24 hour urine culture test. [facility] Medical History CAD (coronary artery disease) Hydronephrosis with urinary obstruction due to renal calculus Social History Household Members: Family Housing: House Do you presently have visiting nurse or other home services: No Alcohol intake: never Patient Tobacco Use Status: Never used Tobacco e-Cigarette/Vaping Use: Never Used Second Hand Smoke Exposure: No service: No Review of Systems Const All systems reviewed & are unremarkable except as noted in HPI and below Reports no additional complaints Eyes Reports no additional complaints ENT Reports no additional complaints Card Denies dyspnea Resp Denies cough and Denies dyspnea GI Reports no additional complaints Reports no additional complaints Musc Reports no additional complaints Skin/Breast Denies rash and Denies unusual bruising Neuro Reports no additional complaints Psych Reports no additional complaints Endo Reports no additional complaints Maurice/Lymph Reports no additional complaints Aller/Immun Reports no additional complaints Physical Exam Const General: cooperative, healthy appearing and no acute distress Orientation/consciousness: patient oriented x3 HEENT Head: Yes normal to inspection, Yes normocephalic and Yes atraumatic Eyes Conjunctivae: conjunctivae normal Neck Neck: Yes normal visual inspection and Yes trachea midline Chest Chest palpation & inspection: normal inspection of the chest Resp Effort & Inspection: normal respiratory effort Cardio Rate: regular rate GI Inspection: Yes normal to inspection Palpation (GI): Soft to palpation General: Yes CVA tenderness on the left Back/Spine/Pelvis Back: CVA tenderness Skin General skin exam: no rashes or lesions noted Neuro General: patient oriented x3 Extrem General: No edema Psych Appearance: grossly normal Results AMB Urinalysis, Automated UA Leukoctes 0 Kamilla/uL Last Edit by Serge Shah CMA on 04/19/23 16:21 UA Nitrite Negative Last Edit by Serge Shah, [facility] on 04/19/23 16:21 UA Urobilinogen 0.2 mg/dL Last Edit by Serge Shah, [facility] on 04/19/23 16:21 UA Protein 0 mg/dL Last Edit by Serge Shah, [employer] on 04/19/23 16:21 UA pH 6.0 Last Edit by Serge Shah, [facility] on 04/19/23 16:21 UA Blood 0 Jeffery/uL Last Edit by Serge Shah, [facility] on 04/19/23 16:21 UA Specific [place] 1.015 Last Edit by Serge Shah, [employer] on 04/19/23 16:21 UA Ketone Negative Last Edit by Serge Shah, [employer] on 04/19/23 16:21 UA Bilirubin 0 mg/dL Last Edit by Serge Shah, [facility] on 04/19/23 16:21 UA Glucose 0 mg/dL Last Edit by Serge Shah, [facility] on 04/19/23 16:21 Results Reviewed Results Reviewed: Laboratory Last Values Urine pH (Auto) 6.0 04/19/23 16:14 Specific [place] (Auto) 1.015 04/19/23 16:14 Urine Protein (Auto) 0 mg/dL 04/19/23 16:14 Glucose (UA)(Auto) 0 mg/dL 04/19/23 16:14 Urine Ketones (Auto) Negative 04/19/23 16:14 Urine Blood (Auto) 0 Jeffery/uL 04/19/23 16:14 Urine Nitrite (Auto) Negative 04/19/23 16:14 Urine Bilirubin (Auto) 0 mg/dL 04/19/23 16:14 Urine Urobilinogen (Auto) 0.2 mg/dL 04/19/23 16:14 Leukocyte Esterase (Auto) 0 Kamilla/uL 04/19/23 16:14 Date of Service: 02/13/23 EXAMINATION: CT ABDOMEN AND PELVIS WITHOUT CONTRAST? CLINICAL INFORMATION: Bilateral flank pain, nausea, vomiting? COMPARISON: None available. TECHNIQUE: Multidetector volumetric imaging was performed from the superior aspect of the liver through the pubic symphysis. Sagittal and coronal reformatted images were obtained on the technologist's workstation.? This CT examination was performed using dose optimization techniques as appropriate, variously including the following: *Automated exposure control *Adjustment of mA and/or kV according to patient size (this includes techniques or standardized protocols for targeted exams where dose is matched to indication/reason for exam; i.e. extremities or head) *Use of iterative reconstruction technique DLP: 585 mGy-cm FINDINGS: LUNG BASES: The visualized lung bases are unremarkable aside from bibasilar atelectasis.? LIVER, GALLBLADDER, AND BILIARY TREE: The liver is normal in size and shape but demonstrates decreased attenuation consistent with hepatic steatosis. No focal hepatic lesion or biliary ductal dilatation is present. The gallbladder is unremarkable with no evidence of radiopaque gallstones, gallbladder wall thickening, or obvious pericholecystic inflammatory changes.? PANCREAS: Unremarkable.? SPLEEN: Unremarkable.? ADRENAL GLANDS: Unremarkable.? KIDNEYS AND URETERS: There is a 3 mm obstructing proximal left ureteral calculus with mild left sided hydronephrosis and marked perinephric stranding presumably secondary to forniceal rupture. This stone measures about 480 Hounsfield units which includes partial volume averaging. There is a 4 mm stone present in the upper pole infundibula. Vascular calcifications are seen on the left. No right-sided hydronephrosis. No renal masses. BLADDER: The bladder is empty.? GASTROINTESTINAL TRACT: The small and large bowel are unremarkable. The appendix is unremarkable.? ABDOMINAL WALL: No significant hernia is appreciated. There is a tiny periumbilical hernia seen containing only fat. LYMPH NODES: Normal. VASCULAR: Unremarkable. PELVIC VISCERA: The uterus and adnexa are unremarkable.? OSSEOUS STRUCTURES: Degenerative changes are present spine. No bony destructive? IMPRESSION: 3 mm obstructing proximal left ureteral calculus with mild hydronephrosis and marked perinephric stranding presumably secondary to forniceal rupture. There is at least one other nonobstructing left intrarenal calculus. Incidentally noted hepatic steatosis Assessment & Plan Assessment & Plan (1) Kidney stones: Code(s): N20.0 - Calculus of kidney (2) Left flank pain: Code(s): R10.9 - Unspecified abdominal pain Plan Ordered renal US. Encouraged the patient to increase her fluid intake.? Follow up in 4 weeks to discuss renal US, and follow-up in 4 months for 24 hour urine culture test. Orders: Orders AMB Urinalysis Automated 04/19/23 Z13.9 - Encounter for screening, unspecified Patient Instructions: The patient had an opportunity to ask questions regarding treatment plan. All questions were answered. Imaging, Laboratory studies and physical exam results were discussed and reviewed in detail. No major barriers to understanding were identified. The patient expressed understanding and agreement with the above treatment plan.? ? ? The patient is aware they should contact our office by phone for worsening of their current condition or the appearance of new symptoms. Compliance is encouraged with any medications and followup testing that is ordered.? ? ? It is a privilege to be allowed the opportunity to participate in the urologic care of your patient. If you have any questions or concerns regarding treatment for the above conditions please do not hesitate to contact me. The office telephone contact is [phone].? ? ? This note is constructed in part using voice recognition software. While every effort has been made to ensure accuracy pony roll finisher errors may have been included.? ? ? Yours sincerely,? ? ? Moo Forbes MD? Coding Level of Care Code Est Pt Level 4 (11884) Diagnoses Kidney stones N20.0 Left flank pain R10.9
--- NOTE | 2023-04-19 16:20 | A.OFFVIS_ITS ---
Intake Intake Visit Reasons: 4w post op follow up Allergies atenolol [ATENOLOL] Allergy (Unknown, Verified 04/19/23 16:06) COUGH ADHESIVE BANDAGE Allergy (Unknown, Uncoded 04/19/23 16:06) RASH [facility] Medical History CAD (coronary artery disease) Hydronephrosis with urinary obstruction due to renal calculus Social History Household Members: Family Housing: House Do you presently have visiting nurse or other home services: No Alcohol intake: never Patient Tobacco Use Status: Never used Tobacco e-Cigarette/Vaping Use: Never Used Second Hand Smoke Exposure: No service: No Results AMB Urinalysis, Automated UA Leukoctes 0 Kamilla/uL Last Edit by Serge Shah CMA on 04/19/23 16:21 UA Nitrite Negative Last Edit by Serge Shah CMA on 04/19/23 16:21 UA Urobilinogen 0.2 mg/dL Last Edit by Serge Shah CMA on 04/19/23 16:2 1 UA Protein 0 mg/dL Last Edit by Serge Shah CMA on 04/19/23 16:21 UA pH 6.0 Last Edit by Serge Shah CMA on 04/19/23 16:21 UA Blood 0 Jeffery/uL Last Edit by Serge Shah CMA on 04/19/23 16:21 UA Specific [place] 1.015 Last Edit by Serge Shah CMA on 04/19/23 16: 21 UA Ketone Negative Last Edit by Serge Shah CMA on 04/19/23 16:21 UA Bilirubin 0 mg/dL Last Edit by Serge Shah CMA on 04/19/23 16:21 UA Glucose 0 mg/dL Last Edit by Serge Shah CMA on 04/19/23 16:21 Results Reviewed Results Reviewed: Laboratory Last Values Urine pH (Auto) 6.0 04/19/23 16:14 Specific [place] (Auto) 1.015 04/19/23 16:14 Urine Protein (Auto) 0 mg/dL 04/19/23 16:14 Glucose (UA)(Auto) 0 mg/dL 04/19/23 16:14 Urine Ketones (Auto) Negative 04/19/23 16:14 Urine Blood (Auto) 0 Jeffery/uL 04/19/23 16:14 Urine Nitrite (Auto) Negative 04/19/23 16:14 Urine Bilirubin (Auto) 0 mg/dL 04/19/23 16:14 Urine Urobilinogen (Auto) 0.2 mg/dL 04/19/23 16:14 Leukocyte Esterase (Auto) 0 Kamilla/uL 04/19/23 16:14 Assessment & Plan Assessment & Plan Orders: Orders AMB Urinalysis Automated Today Z13.9 - Encounter for screening, unspecified Coding Diagnoses
== END 2023-04-19 16:40 | disposition home or self-care (01) ==
PROVIDERS: PCP Internal Medicine; Visit Provider Urology
DX: N20.0 Calculus of kidney (principal); R10.9 Unspecified abdominal pain
CPT/HCPCS: 99214

== ENCOUNTER → 2023-04-19 15:04 | Outpatient (BNVA) | payer OTHER, SELFPAY | PROVIDERS: PCP Internal Medicine; Visit Provider Urology | DX: R10.9 Unspecified abdominal pain (principal); N20.0 Calculus of kidney | CPT/HCPCS: 81003 ==

== ENCOUNTER 2023-08-07 14:37 | Outpatient (REF) | payer OTHER, SELFPAY ==
--- NOTE | ~2023-08-07 | US_ITS ---
EXAMINATION: US RETROPERITONEAL LIMITED (RENAL ONLY) CLINICAL INFORMATION: Unspecified abdominal pain. COMPARISON: CT abdomen and pelvis without contrast 02/13/2023. TECHNIQUE: Real-time imaging of the kidneys. FINDINGS: RIGHT KIDNEY: 10.1 x 4.8 x 6.6 cm (SAG x AP x TRV). The kidney is normal in size, contour, and echogenicity. Renal cortical thickness is normal. No calculi or focal parenchymal lesions. No hydronephrosis. Echogenic foci within the lower pole are possibly vascular in origin. LEFT KIDNEY: 9.9 x 5.3 x 4.9 cm (SAG x AP x TRV). The kidney is normal in size, contour, and echogenicity. Renal cortical thickness is normal. No calculi or focal parenchymal lesions. No hydronephrosis. There is mild fullness versus extrarenal pelvis. US/US renal BI IMPRESSION: No significant abnormality.
== END 2023-08-07 14:38 | disposition home or self-care (01) ==
LOC: HO.HMGCX 14:37
PROVIDERS: Visit Provider Urology
DX: R10.9 Unspecified abdominal pain (principal); N20.0 Calculus of kidney
CPT/HCPCS: 76775

== ENCOUNTER 2023-10-09 15:06 | Outpatient (AMB) | payer OTHER, SELFPAY ==
--- NOTE | 2023-10-09 15:24 | A.OFFVIS_ITS ---
Intake Intake Visit Reasons: 4m/l[facility]/ US(set) Intake Note: Patient presents today for a 4 months follow-up with [facility] Results: Meds- None Allergies to Antibiotic- No Known Allergies Blood Thinner- None Big Data Hadoop Developer Required: No Accompanied by: Self / Same As Patient Allergies atenolol [ATENOLOL] Allergy (Unknown, Verified 10/09/23 15:25) COUGH ADHESIVE BANDAGE Allergy (Unknown, Uncoded 10/09/23 15:25) RASH HPI HPI Comments History of Present Illness Details Mariella is a 67-year-old female who presents today to the office for a follow-up visit. 10/09/23--Discussed 24 hour urine results : Collected 04/30/23-- Total volume 1.46 mL, Calcium 97 mg; Oxalate 21 mg, Sodium 92, Citrate 173 mg. Instructed on importance of increasing fluid intake, Low oxalate diet, low sodium diet. 03/16/23-- She was initially evaluated by Dr. Crowell as an inpatient consult on 02/14/23 for UTI sepsis and left ureteral stone with obstructive uropathy. The patient is s/p left ureteral stent on 02/14/23. Initial CAT scan from -02/13/23 reports left proximal ureteral stone with a 4 mm stone in the upper pole of the left kidney. past medical history significant for coronary artery disease? s/p 2 stents placement about 10 years ago, hypertension, hyperlipidemia, chronic joint and back pain due to lumbar spinal stenosis. The patient states having bilateral back and side pain. She is taking naproxen 500 mg BID for pain management. States having COVID infection in the past.? The patient is having pain and urgency related to the stent, currently managed with the naproxen, she states if she stands for long periods the pain is exacerbated.? [facility] paperwork completed, Plan for Cystoscopy, Left ureteroscopy, possible laser lithotripsy, stent exchange.? Risks discussed included but not limited to, possible need to repeat procedure if stone is not completely fragmented, Irritative voiding symptoms, bladder spasms, urgency, blood in urine. 04/19/2023--Mariella is a 67-year-old female who presents to the office for follow- up for post op evaluation.? She was last seen on 03/16/2023. The patient is s/p left ureteral stent on 02/14/23. She also had Cystoscopy, left ureteroscopy, and stone extraction done on 03/21/2023. I discussed stone analysis is primarily calcium oxalate stone. She had a history of chronic joint and back pain due to lumbar spinal stenosis. She reports that her left side of the back is still sore.? She states that she is not drinking adequate amount of fluids. She mentions having urinary urgency with intermittent urinary incontinence if she can't get to the bathroom in time. She denies any dysuria, hematuria. Results reviewed ? CAT scan of the abdomen/pelvis without IV contrast ? 02/13/2023. 3 mm obstructing proximal left ureteral calculus with mild hydronephrosis and marked perinephric stranding presumably secondary to forniceal rupture. There is at least one other nonobstructing left intrarenal calculus Ordered renal US. Encouraged the patient to increase her fluid intake.? Follow up in 4 weeks to discuss renal US, and follow-up in 4 months for 24 hour urine culture test. 10/09/23--Monitor kidneys, FU in one year , renal US prior [facility] Medical History CAD (coronary artery disease) Hydronephrosis with urinary obstruction due to renal calculus Surgical History (Updated 10/09/23 @ 15:29 by JOSE ENRIQUE Joyce) History of ureteroscopy Hx of cystoscopy Family History (Updated 10/09/23 @ 15:26 by JOSE ENRIQUE Joyce) Father No problems noted. Mother No problems noted. Social History Household Members: Family Housing: House Do you presently have visiting nurse or other home services: No Alcohol intake: never Comment: patient refused camera, chair alarm, bed alarm Patient Tobacco Use Status: Never used Tobacco e-Cigarette/Vaping Use: Never Used Second Hand Smoke Exposure: No service: No Review of Systems Const All systems reviewed & are unremarkable except as noted in HPI and below Reports no additional complaints Eyes Reports no additional complaints ENT Reports no additional complaints Card Denies dyspnea Resp Denies cough and Denies dyspnea GI Reports no additional complaints Reports no additional complaints Musc Reports no additional complaints Skin/Breast Denies rash and Denies unusual bruising Neuro Reports no additional complaints Psych Reports no additional complaints Endo Reports no additional complaints Maurice/Lymph Reports no additional complaints Aller/Immun Reports no additional complaints Results Reviewed Results Reviewed: Date of Service: 08/07/23 EXAMINATION: US RETROPERITONEAL LIMITED (RENAL ONLY) CLINICAL INFORMATION: Unspecified abdominal pain. COMPARISON: CT abdomen and pelvis without contrast 02/13/2023. TECHNIQUE: Real-time imaging of the kidneys. FINDINGS: RIGHT KIDNEY: 10.1 x 4.8 x 6.6 cm (SAG x AP x TRV). The kidney is normal in size, contour, and echogenicity. Renal cortical thickness is normal. No calculi or focal parenchymal lesions. No hydronephrosis. Echogenic foci within the lower pole are possibly vascular in origin. LEFT KIDNEY: 9.9 x 5.3 x 4.9 cm (SAG x AP x TRV). The kidney is normal in size, contour, and echogenicity. Renal cortical thickness is normal. No calculi or focal parenchymal lesions. No hydronephrosis. There is mild fullness versus extrarenal pelvis. IMPRESSION: No significant abnormality. Assessment & Plan Assessment & Plan (1) Kidney stones: Code(s): N20.0 - Calculus of kidney Plan fu one year - renal US Patient Instructions: The patient had an opportunity to ask questions regarding treatment plan. All questions were answered. Imaging, Laboratory studies and physical exam results were discussed and reviewed in detail. No major barriers to understanding were identified. The patient expressed understanding and agreement with the above treatment plan. The patient is aware they should contact our office by phone for worsening of their current condition or the appearance of new symptoms. Compliance is encouraged with any medications and followup testing that is ordered. It is a privilege to be allowed the opportunity to participate in the urologic care of your patient. If you have any questions or concerns regarding treatment for the above conditions please do not hesitate to contact me. The office telephone contact is [phone]. This note is constructed in part using voice recognition software. While every effort has been made to ensure accuracy material mixer errors may have been included. Yours sincerely, Moo Forbes MD Coding Level of Care Code Est Pt Level 3 (22718) Diagnoses Kidney stones N20.0
== END 2023-10-09 16:07 | disposition home or self-care (01) ==
PROVIDERS: PCP Internal Medicine; Visit Provider Urology
DX: N20.0 Calculus of kidney (principal)
CPT/HCPCS: 99213

== ENCOUNTER → 2023-10-09 15:06 | Outpatient (BNVA) | payer OTHER, SELFPAY | PROVIDERS: PCP Internal Medicine; Visit Provider Urology ==

== ENCOUNTER 2024-10-07 14:36 | Outpatient (REF) | payer OTHER, SELFPAY ==
--- NOTE | ~2024-10-07 | US_ITS ---
CLINICAL HISTORY: N20.0 - Calculus of kidney US Renal Comparison: None Findings: Right kidney normal size and echotexture, 11 cm length. Left kidney normal size and echotexture, 9.6 cm length. No hydronephrosis of either kidney. Normal color Doppler IMPRESSION: 1. Normal kidneys. This document has been electronically signed by: Leeroy Peralta MD on 10/09/2024 12:59:24
== END 2024-10-07 14:37 | disposition home or self-care (01) ==
LOC: HO.HMGCX 14:36
PROVIDERS: PCP Nurse Practitioner Family; Visit Provider Urology
DX: N20.0 Calculus of kidney (principal); N13.9 Obstructive and reflux uropathy, unspecified; N20.1 Calculus of ureter; R10.9 Unspecified abdominal pain
CPT/HCPCS: 76775

== ENCOUNTER → 2024-10-07 14:38 | Outpatient (BNV) | payer OTHER, SELFPAY | PROVIDERS: PCP Nurse Practitioner Family; Visit Provider Nuclear Medicine | DX: R10.9 Unspecified abdominal pain (principal) | CPT/HCPCS: 76775 ==

== ENCOUNTER 2024-10-11 13:29 | Outpatient (AMB) | payer OTHER, SELFPAY ==
--- NOTE | 2024-10-11 11:03 | A.OFFVIS_ITS ---
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 Required: No Accompanied by: Self / Same As Patient Allergies atenolol [ATENOLOL] Allergy (Unknown, Verified 10/11/24 13:37) COUGH ADHESIVE BANDAGE Allergy (Unknown, Uncoded 10/11/24 13:37) RASH Medication List - Last Reconciled 10/11/24 by Moo Forbes MD amlodipine 10 mg PO DAILY atorvastatin 40 mg PO DAILY cholecalciferol (vitamin D3) 50 mcg PO DAILY losartan mg PO DAILY metoprolol succinate ER 100 mg PO DAILY metoprolol succinate ER mg PO DAILY naproxen 500 mg PO BIDWM naproxen 500 mg PO BID 20 days omeprazole 20 mg PO DAILY@0630 HPI Comments Details: 10/11/24--Mariella is a 69-year-old female who presents today to the office for a follow-up kidney stones, Had ureteroscopy and stone extraction done on 2022, stone analysis calcium oxalate. reviewed renal US 10/09/24-negative recurrent kidney stones. Encouraged to continue with adequate hydration and citrate to diet. FU in one year. 10/09/23--Discussed 24 hour urine results: Collected 04/30/23-- Total volume 1.46 mL, Calcium 97 mg; Oxalate 21 mg, Sodium 92, Citrate 173 mg. Instructed on importance of increasing fluid intake, Low oxalate diet, low sodium diet. 10/09/23--Monitor kidneys, FU in one year, renal US prior. 03/16/23--She was initially evaluated by Dr. Crowell as an inpatient consult on 02/14/23 for UTI sepsis and left ureteral stone with obstructive uropathy. The patient is s/p left ureteral stent on 02/14/23. Initial CAT scan from -02/13/23 reports left proximal ureteral stone with a 4 mm stone in the upper pole of the left kidney. past medical history significant for coronary artery disease? s/p 2 stents placement about 10 years ago, hypertension, hyperlipidemia, chronic joint and back pain due to lumbar spinal stenosis. The patient states having bilateral back and side pain. She is taking naproxen 500 mg BID for pain management. States having COVID infection in the past.?The patient is having pain and urgency related to the stent, currently managed with the naproxen, she states if she stands for long periods the pain is exacerbated.? [facility] paperwork completed, Plan for Cystoscopy, Left ureteroscopy, possible laser lithotripsy, stent exchange.? Risks discussed included but not limited to, possible need to repeat procedure if stone is not completely fragmented, Irritative voiding symptoms, bladder spasms, urgency, blood in urine. 04/19/2023--Mariella is a 67-year-old female who presents to the office for follow- up for post op evaluation.? She was last seen on 03/16/2023. The patient is s/p left ureteral stent on 02/14/23. She also had Cystoscopy, left ureteroscopy, and stone extraction done on 03/21/2023. I discussed stone analysis is primarily calcium oxalate stone. She had a history of chronic joint and back pain due to lumbar spinal stenosis. She reports that her left side of the back is still sore.? She states that she is not drinking adequate amount of fluids. She mentions having urinary urgency with intermittent urinary incontinence if she can't get to the bathroom in time. She denies any dysuria, hematuria. Results reviewed ? CAT scan of the abdomen/pelvis without IV contrast ? 02/13/2023. 3 mm obstructing proximal left ureteral calculus with mild hydronephrosis and marked perinephric stranding presumably secondary to forniceal rupture. There is at least one other nonobstructing left intrarenal calculus. Ordered renal US. Encouraged the patient to increase her fluid intake.? Follow up in 4 weeks to discuss renal US, and follow-up in 4 months for 24 hour urine culture test. [facility] Medical History CAD (coronary artery disease) Hydronephrosis with urinary obstruction due to renal calculus Surgical History History of ureteroscopy Hx of cystoscopy Family History Father No problems noted. Mother No problems noted. Social History Household Members: Family Housing: House Do you presently have visiting nurse or other home services: No Alcohol intake: never Comment: patient refused camera, chair alarm, bed alarm Patient Tobacco Use Status: Never used Tobacco e-Cigarette/Vaping Use: Never Used Second Hand Smoke Exposure: No service: No Review of Systems Const All systems reviewed & are unremarkable except as noted in HPI and below Reports no additional complaints Eyes Reports no additional complaints ENT Reports no additional complaints Card Reports no additional complaints Resp Reports no additional complaints GI Reports no additional complaints Reports as per HPI Musc Reports no additional complaints Skin/Breast Reports system reviewed and no additional complaints, except as documented Neuro Reports no additional complaints Psych Reports no additional complaints Endo Reports no additional complaints Maurice/Lymph Reports no additional complaints Aller/Immun Reports no additional complaints Results AMB Urinalysis, Automated UA Leukoctes 0 Kamilla/uL Last Edit by Clare Christine [facility] on 10/11/24 13:45 UA Nitrite Negative Last Edit by Clare Christine [facility] on 10/11/24 13:45 UA Urobilinogen 0.2 mg/dL Last Edit by Clare Christine [facility] on 10/11/24 13:4 5 UA Protein 0 mg/dL Last Edit by Clare Christine [facility] on 10/11/24 13:45 UA pH 6.0 Last Edit by Clare Christine [facility] on 10/11/24 13:45 UA Blood 0 Jeffery/uL Last Edit by Clare Christine [facility] on 10/11/24 13:45 UA Specific [place] 1.010 Last Edit by Clare Christine [facility] on 10/11/24 13: 45 UA Ketone Negative Last Edit by Clare Christine [facility] on 10/11/24 13:45 UA Bilirubin 0 mg/dL Last Edit by Clare Christine [facility] on 10/11/24 13:45 UA Glucose 0 mg/dL Last Edit by Clare Christine [facility] on 10/11/24 13:45 Results Reviewed Results Reviewed: Laboratory Last Values Urine pH (Auto) 6.0 10/11/24 13:44 Specific [place] (Auto) 1.010 10/11/24 13:44 Urine Protein (Auto) 0 mg/dL 10/11/24 13:44 Glucose (UA)(Auto) 0 mg/dL 10/11/24 13:44 Urine Ketones (Auto) Negative 10/11/24 13:44 Urine Blood (Auto) 0 Jeffery/uL 10/11/24 13:44 Urine Nitrite (Auto) Negative 10/11/24 13:44 Urine Bilirubin (Auto) 0 mg/dL 10/11/24 13:44 Urine Urobilinogen (Auto) 0.2 mg/dL 10/11/24 13:44 Leukocyte Esterase (Auto) 0 Kamilla/uL 10/11/24 13:44 Date of Service: 10/07/24 CLINICAL HISTORY: N20.0 - Calculus of kidney US Renal Comparison: None Findings: Right kidney normal size and echotexture, 11 cm length. Left kidney normal size and echotexture, 9.6 cm length. No hydronephrosis of either kidney. Normal color Doppler IMPRESSION: 1. Normal kidneys. Date of Service: 08/07/23 EXAMINATION: US RETROPERITONEAL LIMITED (RENAL ONLY) CLINICAL INFORMATION: Unspecified abdominal pain. COMPARISON: CT abdomen and pelvis without contrast 02/13/2023. TECHNIQUE: Real-time imaging of the kidneys. FINDINGS: RIGHT KIDNEY: 10.1 x 4.8 x 6.6 cm (SAG x AP x TRV). The kidney is normal in size, contour, and echogenicity. Renal cortical thickness is normal. No calculi or focal parenchymal lesions. No hydronephrosis. Echogenic foci within the lower pole are possibly vascular in origin. LEFT KIDNEY: 9.9 x 5.3 x 4.9 cm (SAG x AP x TRV). The kidney is normal in size, contour, and echogenicity. Renal cortical thickness is normal. No calculi or focal parenchymal lesions. No hydronephrosis. There is mild fullness versus extrarenal pelvis. IMPRESSION: No significant abnormality. Assessment & Plan Assessment & Plan (1) Kidney stones: Code(s): N20.0 - Calculus of kidney Category: Medical Plan fu one year - renal US Orders: Orders AMB Urinalysis Automated Today Z13.9 - Encounter for screening, unspecified Patient Instructions: The patient had an opportunity to ask questions regarding treatment plan. The patient expressed understanding and agreement with the above treatment plan. The patient is aware they should contact our office by phone for worsening of their current condition or the appearance of new symptoms. Compliance is encouraged with any medications and followup testing that is ordered. It is a privilege to be allowed the opportunity to participate in the urologic care of your patient. If you have any questions or concerns regarding treatment for the above conditions please do not hesitate to contact me. The office telephone contact is [phone]. This note is constructed in part using voice recognition software. While every effort has been made to ensure accuracy instructor tap dancing errors may have been included. Yours sincerely, Moo Forbes MD Coding Level of Care Code Est Pt Level 3 (41802) Diagnoses Kidney stones N20.0
== END 2024-10-11 13:56 | disposition home or self-care (01) ==
PROVIDERS: PCP Internal Medicine; Visit Provider Urology
DX: N20.0 Calculus of kidney (principal); Z13.9 Encounter for screening, unspecified
CPT/HCPCS: 99213

== ENCOUNTER → 2024-10-11 13:29 | Outpatient (BNVA) | payer OTHER, SELFPAY | PROVIDERS: PCP Internal Medicine; Visit Provider Urology | DX: Z87.442 Personal history of urinary calculi (principal) | CPT/HCPCS: 81003 ==

== ENCOUNTER 2024-10-24 12:11 | Outpatient (AMB) | payer OTHER, SELFPAY ==
[2024-10-24 12:17] VITALS: BP 138/72; PULSE 82; RESP 16; TEMP 36.8; O2SAT 98; BMI 27.1
--- NOTE | 2024-10-24 12:17 | MHC.PC.OV ---
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: No Accompanied by: Self / Same As Patient Allergies atenolol [ATENOLOL] Allergy (Unknown, Verified 10/24/24 12:50) COUGH ADHESIVE BANDAGE Allergy (Unknown, Uncoded 10/24/24 12:50) RASH Medication List - Last Reconciled 10/24/24 by Daniele Celaya, [facility]- amlodipine 10 mg PO DAILY aspirin (Adult Aspirin Regimen) 81 mg PO DAILY atorvastatin 40 mg PO DAILY cholecalciferol (vitamin D3) 50 mcg PO DAILY losartan mg PO DAILY metoprolol succinate ER 100 mg PO DAILY metoprolol succinate ER 25 mg PO DAILY naproxen 500 mg PO BID 20 days omeprazole 20 mg PO DAILY@0630 Tobacco use date assessed: 10/24/24 Fall risk assessment: No Falls in past year Last assessed Fall Risk: 10/24/24 Dental Screening Dental Screen Date: 10/24/24 Did you have a dental visit in the last 12 months?: Yes Did you have a dental problem in the last 6 months where you did not have access to dental care?: No Was dental information given to patient?: Patient has 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 She has a history of coronary artery disease, having undergone stent placement in 2012. She maintains regular follow-ups with her supervisor inspection and testing. The patient denies any changes in her cardiac symptoms and manages her condition effectively with current therapies. Additionally, she reports recurring issues with kidney stones and follows up regularly with a urologist. A previous request for a colonoscopy was declined by the patient, though she has agreed to undergo Cologuard testing for colorectal cancer screening. She has a documented history of arthritis and spinal stenosis. 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 - Tobacco Use: Former smoker, started at age 16, up to one pack daily, and quit in 2012. Health Maintenance - Colorectal cancer screening planned via Cologuard - Annual mammogram in August - Lung nodule screening via low-dose CAT scan recommended due to smoking history Review of Systems - Skin: Reports dry skin on hands with fissures. No other dermatologic symptoms reported. - General: Denies recent weight change, fatigue, fever, or night sweats. Physical Exam General: Cooperative, healthy appearing, comfortable, no acute distress and well developed Orientation: Patient oriented x3 Limitations: No limitations Head: Normal to inspection Ears: Hearing grossly normal bilaterally Nose: Normal external nose present Face and sinus: Normal facial exam, but with a more macular, slightly raised lesion to the right facial cheek, tissue-colored with darker pigmentation Eyes: Appearance normal, both eyes and all related structures Neck: Normal visual inspection and Yes full ROM Respiratory: Normal respiratory effort and able to speak in complete sentences. Clear to auscultation bilaterally Cardiovascular: Regular rate and rhythm. Normal S1 and S2, with a very faint systolic murmur GI: Normal to inspection. Soft to palpation and nontender Skin: Dry skin bilaterally, especially on the hands, with cracking noted bilaterally on the fourth fingers' distal aspect, tips. No other rashes or lesions noted Neuro: Patient oriented x3 Extremities: Normal to inspection Results Plan - Continue follow-up for coronary artery disease with regular cardiology appointments - Initiate hydrocortisone cream for xerosis with fissures and refer to dermatology for further management - Evaluate the macular lesion on the right facial cheek with a dermatology assessment - Organize Cologuard test for colorectal cancer screening - Schedule low-dose CT scan for lung nodule screening due to former smoking history - Continue annual mammogram screening in August Discussion Notes During the consultation, I reviewed the patient's cardiovascular, dermatological, and general health status. We discussed the ongoing management of her coronary artery disease and I emphasized the importance of adherence to her cardiology follow-ups. I addressed concerns regarding her dermatological issues and provided initial treatment with hydrocortisone cream, recommending further dermatology evaluation for a macular lesion with potential pigmentation changes on her cheek. In light of her smoking history, we agreed on a low-dose CT scan for lung cancer screening, and she consented to this approach. We also discussed colorectal cancer screening via Cologuard, in lieu of a colonoscopy, respecting her preferences. Finally, we reviewed the schedule for her annual mammogram. Patient Instructions - Apply hydrocortisone cream to affected areas on the hands as prescribed - Contact dermatology for skin evaluation and treatment of the lesion - Schedule and complete the Cologuard test for colorectal cancer screening - Follow up with a supervisor inspection and testing as planned - Continue regular mammogram screenings annually - Undergo a low-dose CAT scan for lung screening due to previous smoking history PFSH Medical History (Updated 10/24/24 @ 13:11 by LORI Mandel) CAD (coronary artery disease) Hydronephrosis with urinary obstruction due to renal calculus Surgical History History of ureteroscopy Hx of cystoscopy Family History Father No problems noted. Mother No problems noted. Social History Household Members: Family Housing: House Do you presently have visiting nurse or other home services: No Alcohol intake: never Comment: patient refused camera, chair alarm, bed alarm Patient Tobacco Use Status: Never used Tobacco e-Cigarette/Vaping Use: Never Used Second Hand Smoke Exposure: No service: No Current occupational status: employed Current occupation: [employer] Current occupational exposures/hazards: No Cognitive needs: No Hearing needs: No Vision needs: Yes Questionnaire PHQ-9 Over the last 2 weeks, how often have you been bothered by any of the following problems? 1. Little interest or pleasure in doing things: not at all 2. Feeling down, depressed, or hopeless: not at all 3. Trouble falling or staying asleep, or sleeping too much: not at all 4. Feeling tired or having little energy: not at all 5. Poor appetite or overeating: not at all 6. Feeling bad about yourself - or that you are a failure or have let yourself or your family down: not at all 7. Trouble concentrating on things, such as reading the newspaper or watching television: not at all 8. Moving or speaking so slowly that other people could have noticed. Or the opposite - being so fidgety or restless that you have been moving around a lot more than usual: not at all 9. Thoughts that you would be better off or of hurting yourself in some way: not at all Total score: 0 Depression Screening Interpretation: Negative Depression Screening Done: Yes 86983 - PHQ-9 Billing: Yes Source: Developed by Drs. Zenon Long, Fina Teague, Jerel Haddad and colleagues, with an educational jennifer from [employer]. Thrive Questionnaire Date Thrive assessed: 10/24/24 I am a: Patient What is your living situation today?: I have a steady place to live Within the past 12 months, did the food you bought not last and you didn't have the money to get more?: Never true Within the past 12 months, did you worry whether your food would run out before you got money to buy more?: Never true Do you have trouble paying for medicines?: No Do you have trouble getting transportation to medical appointments?: No Do you have trouble paying your heating and electricity bill?: No Do you have trouble taking care of your child, family member or friend?: No Do you have trouble with day-to-day activities such as bathing, preparing meals, shopping, managing finances, etc.?: No Are you currently unemployed and looking for a job?: No Are you interested in more education?: No Please select the resources that you would like help with: None Currently or been in a relationship where the following occur: I choose not to answer THRIVE Score: 0 AUDIT C Alcohol Use Questionnaire (AUDIT-C) 1. How often do you have a drink containing alcohol?: Never 3. How often do you have six or more drinks on one occasion?: Never Total Score: 0 Score Reviewed/Action Taken: Yes ANH-7 AMB Questionnaire ANH-7 Date ANH - 7 assessed: 10/24/24 Feeling nervous, anxious, or on edge: 0 = Not at all Not being able to stop or control worryin = Not at all Worrying too much about different things: 0 = Not at all Trouble relaxin = Not at all Being so restless that it is hard to sit still: 0 = Not at all Becoming easily annoyed or irritable: 0 = Not at all Feeling afraid as if something awful might happen: 0 = Not at all Total ANH-7 score (0-4 normal; 5-9 mild; 10-14 moderate; 15-21 severe): 0 Source: Developed by Drs. Zenon Long, Fina Teague, Jerel Haddad and colleagues, with an educational jennifer from [employer]. ANH-7 Assessment Billing ANH-7 Assessment Tool: ANH-7 Assessment 46017 Physical exam (Primary Care) Vital Signs: Last Vital Signs Temp 98.2 F 10/24/24 12:17 Pulse 82 10/24/24 12:17 Resp 16 10/24/24 12:17 BP 138/72 10/24/24 12:17 Pulse Ox 98 10/24/24 12:17 BMI result Body Mass Index 27.1 Tobacco/Smoking Status: Tobacco use Status Tobacco use date assessed 10/24/24 10/24/24 12:22 Patient Tobacco Use Status Never used Tobacco 10/24/24 12:22 e-Cigarette/Vaping Use Never Used 10/24/24 12:22 PHQ-9: PHQ-9 Score PHQ-9: Total score 0 10/24/24 12:54 Depression Screening Interpretation: Negative Thrive Assessment: Date of Thrive Assessment Date Thrive assessed 10/24/24 10/24/24 12:22 Currently or been in a relationship where the following occur: I choose not to answer Coding Level of Care Code New Pt Level 3 (08992) Diagnoses CAD (coronary artery disease) I25.10 Dermatitis L30.9 Vitamin D deficiency E55.9 Postmenopausal Z78.0 Smoking hx Z87.891 Additional Codes ANH-7 Assessment Billing - ANH-7 Assessment Tool: ANH-7 Assessment 13287 ([id number]) PHQ-9 - 47114 - PHQ-9 Billing: Yes ([id number]) Assessment & Plan Assessment & Plan (1) CAD (coronary artery disease): Comment: 2 stents placed 2012 Code(s): I25.10 - Atherosclerotic heart disease of [place] coronary artery without angina pectoris Category: Medical (2) Dermatitis: Code(s): L30.9 - Dermatitis, unspecified Category: Medical (3) Vitamin D deficiency: Code(s): E55.9 - Vitamin D deficiency, unspecified Category: Medical (4) Postmenopausal: Code(s): Z78.0 - Asymptomatic menopausal state Category: Medical (5) Smoking hx: Code(s): Z87.891 - Personal history of nicotine dependence Category: Social Hx Plan . Orders: Orders TSH reflex Free T4 Today I25.10 - Atherosclerotic heart disease of [place] coronary artery without angina pectoris Lipid Panel Today I25.10 - Atherosclerotic heart disease of [place] coronary artery without angina pectoris Vitamin D 25-OH Total Today E55.9 - Vitamin D deficiency, unspecified Complete Blood Count Auto Diff Today I25.10 - Atherosclerotic heart disease of [place] coronary artery without angina pectoris Comprehensive [place]. Panel Fast Today I25.10 - Atherosclerotic heart disease of [place] coronary artery without angina pectoris UA CC w/rflx Micro + Cult Today I25.10 - Atherosclerotic heart disease of [place] coronary artery without angina pectoris XR DEXA axial skeleton Today Z78.0 - Asymptomatic menopausal state Referrals Dermatology Referral L30.9 - Dermatitis, unspecified Lung Cancer Screening Referral Z87.891 - Personal history of nicotine dependence Cologuard Test Z12.11 - Encounter for screening for malignant neoplasm of colon, Z12.12 - Encounter for screening for malignant neoplasm of rectum Medications: New hydrocortisone 2.5% 1 appl topical DAILY PRN 30 grams 0RF skin irritation
--- OUTSIDE RECORDS SUMMARY | 2024-10-24 16:02 | XMS_ITS | Clinical Summary ---
Author Organization [facility] ity Address [address] [place] [address] Care Team Providers Care Coil Strapper Name Role Phone Katelynn Young MD Primary Care Provider Allergies Active Allergy Reactions Criticality Noted Date Comments Atenolol 08/08/2016 cough Medications Medication Sig Dispensed Refills Start Date End Date Status naproxen (NAPROSYN) 500 mg tablet TAKE 1 TABLET BY MOUTH TWICE DAILY WITH MEALS 180 tablet 1 09/13/2024 Active cholecalciferol (VITAMIN D-3) 50 mcg (2,000 unit) capsule TAKE 1 CAPSULE BY MOUTH EVERY DAY 90 capsule 1 09/13/2024 Active aspirin 81 mg EC tablet Take 1 tablet (81 mg total) by mouth 1 (one) time each day. Active metoprolol succinate (TOPROL-XL) 25 mg 24 hr tablet Take 1 Tablet by mouth daily for 360 days. 02/15/2024 02/09/2025 Active metoprolol succinate (TOPROL-XL) 100 mg 24 hr tablet TAKE 1 TABLET BY MOUTH DAILY 90 tablet 10/17/2024 Active amLODIPine (NORVASC) 10 mg tablet TAKE 1 TABLET BY MOUTH DAILY 90 tablet 10/17/2024 Active omeprazole (PriLOSEC) [address] capsule TAKE 1 CAPSULE BY MOUTH DAILY 90 capsule 10/17/2024 Active atorvastatin (LIPITOR) 40 mg tablet TAKE 1 TABLET BY MOUTH DAILY 90 tablet 10/17/2024 Active losartan (COZAAR) 100 mg tablet TAKE 1 TABLET BY MOUTH DAILY 90 tablet 10/17/2024 Active amLODIPine (NORVASC) 10 mg tablet Take 1 tablet (10 mg total) by mouth 1 (one) time each day. 07/17/2024 10/17/2024 Discontinued atorvastatin (LIPITOR) 40 mg tablet Take 1 tablet (40 mg total) by mouth 1 (one) time each day. 07/17/2024 10/17/2024 Discontinued losartan (COZAAR) 100 mg tablet Take 1 tablet (100 mg total) by mouth 1 (one) time each day. 07/17/2024 10/17/2024 Discontinued metoprolol succinate (TOPROL-XL) 100 mg 24 hr tablet Take 1 tablet (100 mg total) by mouth 1 (one) time each day. 07/17/2024 10/17/2024 Discontinued omeprazole (PriLOSEC) [address] capsule Take 1 capsule (20 mg total) by mouth 1 (one) time each day. 07/17/2024 10/17/2024 Discontinued Active Problems Problem Noted Date Diagnosed Date Nephrolithiasis 03/24/2023 Overview (09/13/2024): Left ureteroscopy with Dr. Moo Vasquez Insomnia 06/14/2017 Elevated glucose 10/12/2016 Breast microcalcification, mammographic 04/06/20 11 HTN (hypertension) 03/25/2011 Coronary disease 08/09/2010 Overview (09/13/2024): Two coronary arteries stented July 2010 Daron Enrique Pure hypercholesterolemia 03/29/2006 Immunizations Name Administration Dates Next Due Influenza Quadravalent, MDCK , 0.5ml, preservative free (Flucelvax) 6mo and older 07/04/2018 Influenza Quadravalent, MDCK , 0.5ml, with preservative (Flucelvax) 6mo and older 06/14/2017 Influenza trivalent, 0.5mL ( Fluad) 65yo and older 10/03/2023,07/19/2021 Influenza trivalent, 0.5mL, preservative free (Fluarix; FluLaval; Fluzone) ages 6mo and older (Afluria) 3 years and older 06/07/2013,06/08/2012,06/10/2011,2006 Influenza, Unspecified 07/20/2022,07/06/2014 PPD Test 06/09/2001,06/07/2001 Pfizer SARS-CoV-2 COVID-19, mRNA, LNP-S, preservative free 01/26/2021,12/30/2020 Pneumococcal conjugate 13 va lent (Prevnar 13, PCV13) 2mo and older 04/19/2022 Td Tetanus diptheria (Tdvax) 7yo and older 04/19/2022 Tdap Tetanus diptheria acell ular pertussis (Boostrix; Adacel) 7yo and older 06/10/2011 Surgical History Surgery Date Site/Laterality Comments CORONARY STENT PLACEMENT July 2010 PROCEDURE: STENT, CORONARY, MARY; COMMENT: technical details unknown TUBAL LIGATION PROCEDURE: HISTORICAL TUBAL LIGATION TONSILLECTOMY PROCEDURE: HISTORICAL TONSILLECTOMY CATARACT EXTRACTION 2012 PROCEDURE: HISTORICAL CATARACT REMOVAL; COMMENT: right BREAST LUMPECTOMY 2010 PROCEDURE: ---- BREAST LUMP BIOPSY ----; COMMENT: benign BREAST BIOPSY 03/2011 PROCEDURE: BX BREAST; PERC NEEDLE CORE W/IMAG GUID; COMMENT: lt. breast bx.-benign Medical History Medical History Date Comments Pure hypercholesterolemia 03/29/2006 DX:Pur e hypercholesterolemia HTN (hypertension) 03/25/2011 DX:HTN (hyper tension) Coronary disease 08/09/2010 DX:Coronary dis ease Family History Medical History Relation Name Comments Other: CHF Father Hypertension Mother Breast cancer Sister Relation Name Status Comments Father Mother Sister Alive Social History Tobacco Use Types Packs/Day Years Used Date Smoking Tobacco: Former Cigarettes Smokeless Tobacco: Never Alcohol Use Standard Drinks/Week Comments No 0 (1 standard drink = 0.6 oz pur e alcohol) Sex and Gender Information Value Date Recorded Sex Assigned at Not on file Gender Identity Not on file Sexual Orientation Not on file Obstetrics History Last Filed Vital Signs Vital Sign Reading Time Taken Comments Blood Pressure 132/70 07/23/2024 8:21 AM EDT Pulse 86 07/22/2024 2:29 PM EDT Temperature - - Respiratory Rate - - Oxygen Saturation - - Inhaled Oxygen Concentration - - Weight 68.8 kg (151 lb 9.6 oz) 07/22/2024 2:29 P M EDT Height 157.5 cm (5' 2 ) 07/22/2024 2:29 PM EDT Body Mass Index 27.73 07/22/2024 2:29 PM EDT Plan of Treatment Upcoming Encounters Date Type Department Care Team (Late st Contact Info) Description 05/31/2025 12:30 PM EDT Appointment Radiology Department - [place] [address] [place] [address] Health Maintenance Due Date Last Done Comments Zoster Vaccines (1 of 2) 2005 Depression Screening 09/03/2022 Falls Risk Assessment 09/03/2022 Osteoporosis Screening (Bone Density Screening) 09/03/2022 Social Influencers of Health Screening 09/03/2022 Pneumococcal Vaccine: 65+ Years (2 of 2 - PPSV23 or PCV20) 04/19/2023 04/19/2022 COVID-19 Vaccine (4 - season) 2024 10/29/2021, 01/26/2021, 12/30/2020 Influenza Vaccine (#1) 2024 , 07/20/2022, 07/19/2021, Additional history exists Hypertension/CHF/CAD Annual BMP Blood Test 02/08/2025 02/09/2024, 02/09/2024 Colorectal Cancer Screening: Stool Based Tests (FOBT/FIT) 07/22/2025 07/22/2024 Breast Cancer Screening 09/08/2025 09/08/20 23, 08/26/2023, 03/19/2022, Additional history exists Cholesterol Screening (Lipid Panel) 02/08/2029 02/09/2024, 02/09/2024 RSV Immunization Patients 60+ Years Old (1 - 1-dose 75+ series) 2030 DTaP,Tdap,and Td Vaccines (3 - Td or Tdap) 04/19/2032 04/19/2022, 06/10/2011 Hepatitis C Screening Completed 08/08/2016 HIB Vaccines Aged Out No longer eligi ble based on patient's age to complete this topic HPV Vaccines Aged Out No longer eligi ble based on patient's age to complete this topic Hepatitis A Vaccines Aged Out No long er eligible based on patient's age to complete this topic Hepatitis B Vaccines Aged Out No long er eligible based on patient's age to complete this topic IPV Vaccines Aged Out No longer eligi ble based on patient's age to complete this topic MMR Vaccines Aged Out No longer eligi ble based on patient's age to complete this topic Meningococcal ACWY Vaccine Aged Out N o longer eligible based on patient's age to complete this topic RSV Immunization Patients Under 20 months Aged Out No longer eligible based on patient's age to complete this topic Varicella Vaccines Aged Out No longer eligible based on patient's age to complete this topic Procedures Procedure Name Priority Date/Time Associated Diagnosis Comments STOOL BASED TEST Routine 07/22/2024 ANNUAL BMP BLOOD TEST Routine 02/09/2024 LIPID PANEL Routine 02/09/2024 DIAGNOSTIC MAMMOGRAPHY WITH CAD UNILATERAL Routine 09/08/2023 3:21 PM EST Other abnormal and inconclusive findings on diagnostic imaging of breast HEPATITIS C SCREENING Routine 08/08/2016 from Last 3 Months or Most Recently Relevant to Health Maintenance Results * Stool Based Tests (FOBT/FIT) (07/22/2024) [facility] Colorectal Cancer Screening: Stool Based Tests no interpretation , abstracted Historical Provider MD SARAH ALVAREZ E * Annual BMP Blood Test (02/09/2024) [facility] Annual BMP Blood Test abstracted Historical Provider MD SARAH ALVAREZ E * (ABNORMAL) Lipid panel (02/09/2024) [facility] LDL/HDL Ratio 3 0 - 4 Triglycerides 152(A) 0 - 150 mg/dL Cholesterol 173 0 - 200 mg/dL HDL 70 40 mg/dL LDL Cholesterol 73 0 - 100 mg/dL Blood Venous blood specimen / Unknown Historical Provider LAB BLOOD ORDERAB LES * DIAGNOSTIC MAMMOGRAPHY WITH CAD UNILATERAL (09/08/2023 3:21 PM EST) Anatomical Region Laterality Modality Mammography 08/28/2023 2:57 PM EST Narrative 09/08/2023 3:41 PM EST This is a summary report. The complete report is available in the patient's medical record. If you cannot access the medical record, please contact the sending organization for a detailed fax or copy. History: Callback from screening for multiple groups of calcifications of the left breast. ??The calcifications circled on the MLO view are located in the upper breast at about 9 cm from the nipple and in the lower breast at about 6 cm from the nipple. ??Two groups of calcifications were circled in the central aspect of the breast on the CC view at slightly lateral at 7 cm from the nipple and slightly medial at 6 cm from the nipple. Study: Unilateral left diagnostic mammography with tomosynthesis and CAD. Technique: Unilateral left digital diagnostic mammography is obtained and read in conjunction with computer aided detection. ??Tomosynthesis as well as 2D C-View imaging were obtained. ??Spot magnified compression views were also obtained. Comparison: August 26, 2023. Breast composition: There are scattered areas of fibroglandular density. Left breast: The previously circled groups of calcifications are identified on the ML 90 degrees in the upper breast at 8 cm from the nipple and lower breast at 6 cm from the nipple. ??The previously circled calcifications have amorphous morphology on the multiple spot magnified compression views. IMPRESSION: Impression: Left breast: Multiple groups of amorphous calcifications of the left breast middle depth. ??Probably benign. ??A 6 months follow-up mammogram is recommended with spot magnified compression views. ??Alternative options were also discussed with the patient. ??Patient is going to think about scheduling the 6 months follow-up. BI-RADS: Category 3: Probably benign Findings and recommendations were discussed with the patient at completion of the studies. Procedure Note Adolfo Monroe MD - 10/31/2023 This is a summary report. The complete report is available in thepatient's medical record. If you cannot access the medical record, pleasecontact the sending organization for a detailed fax or copy. History: Callback from screening for multiple groups of calcifications ofthe left breast. The calcifications circled on the MLO view are locatedin the upper breast at about 9 cm from the nipple and in the lower breastat about 6 cm from the nipple. Two groups of calcifications were circledin the central aspect of the breast on the CC view at slightly lateral at7 cm from the nipple and slightly medial at 6 cm from the nipple. Study: Unilateral left diagnostic mammography with tomosynthesis andCAD. Technique: Unilateral left digital diagnostic mammography is obtained andread in conjunction with computer aided detection. Tomosynthesis as wellas 2D C-View imaging were obtained. Spot magnified compression views werealso obtained. Comparison: August 26, 2023. Breast composition: There are scattered areas of fibroglandular density. Left breast: The previously circled groups of calcifications areidentified on the ML 90 degrees in the upper breast at 8 cm from thenipple and lower breast at 6 cm from the nipple. The previously circledcalcifications have amorphous morphology on the multiple spot magnifiedcompression views. IMPRESSION: Impression: Left breast: Multiple groups of amorphous calcifications of the leftbreast middle depth. Probably benign. A 6 months follow-up mammogram isrecommended with spot magnified compression views. Alternative optionswere also discussed with the patient. Patient is going to think aboutscheduling the 6 months follow-up. BI-RADS: Category 3: Probably benign Findings and recommendations were discussed with the patient at completionof the studies. Katelynn Young MD IMG BI PROCEDURES * Hepatitis C Screening (08/08/2016) Hepatitis C Screening abstracted Historical Provider [facility] KIM Simmons from Last 3 Months or Most Recently Relevant to Health Maintenance Care Teams Coil Strapper Relationship Specialty Start Date End Date Katelynn Young MD [address] [place] [address] PCP - General 07/25/1999
== END 2024-10-24 13:07 | disposition home or self-care (01) ==
PROVIDERS: PCP Nurse Practitioner Family; Visit Provider Nurse Practitioner Family
DX: I25.10 Atherosclerotic heart disease of native coronary artery without angina pectoris (principal); L30.9 Dermatitis, unspecified; E55.9 Vitamin D deficiency, unspecified; Z78.0 Asymptomatic menopausal state; Z87.891 Personal history of nicotine dependence

== ENCOUNTER → 2024-10-24 12:11 | Outpatient (BNVA) | payer OTHER, SELFPAY | PROVIDERS: PCP Nurse Practitioner Family; Visit Provider Nurse Practitioner Family | DX: I25.10 Atherosclerotic heart disease of native coronary artery without angina pectoris (principal); L30.9 Dermatitis, unspecified; E55.9 Vitamin D deficiency, unspecified; Z78.0 Asymptomatic menopausal state; Z87.891 Personal history of nicotine dependence | CPT/HCPCS: 96127 ==

== ENCOUNTER 2024-12-13 09:03 | Outpatient (AMB) | payer OTHER, SELFPAY ==
--- NOTE | 2024-12-13 07:41 | A.OFFVIS_ITS ---
Intake Visit Reasons: Former Smoker Allergies atenolol [ATENOLOL] Allergy (Unknown, Verified 10/24/24 12:50) COUGH ADHESIVE BANDAGE Allergy (Unknown, Uncoded 10/24/24 12:50) RASH HPI HPI Former Smoker: Details: Initial visit for this 69yo former smoker with a 40PYH. Patient started smoking at age 16 for 41 years at 1ppd. She quit in 2012. . Denies marijuana use. Denies second hand smoke exposure. Denies exposure to chemicals or substances like asbestos. . Denies known family history of lung cancer. Denies personal history of cancers. Denies chest CT in last year. . Denies recent travel outside the [place]. Denies recent respiratory illness or recent hospitalization for respiratory issues. Reports testing positive for COVID x 2. Admits receiving COVID Vaccine. . Denies fever, chills, new/worsening cough, hemoptysis, hoarseness or dysphagia. Denies significant chest pain, significant dyspnea or unintentional weight loss. Patient Lung Cancer Screening Questionnaire reviewed with patient by provider. . Shared Decision Making Completed. Patient meets criteria. Discussed in detail with patient, the risk vs benefit of LDCT screening. Patient consents to proceed with scan. Discussed and encouraged continued smoking cessation. [facility] Medical History (Updated 11/21/24 @ 12:20 by Mary Kate Arguelles PA-C) CAD (coronary artery disease) Hydronephrosis with urinary obstruction due to renal calculus Postmenopausal Vitamin D deficiency Personal history of nicotine dependence Surgical History (Updated 12/13/24 @ 09:26 by Mary Kate Arguelles PA-C) History of tubal ligation History of tonsillectomy History of heart artery stent History of cystoscopy History of right cataract surgery History of left breast biopsy Family History (Updated 11/21/24 @ 12:15 by Mary Kate Arguelles PA-C) Father No problems noted. Mother No problems noted. 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 - Patient meets criteria for LDCT for lung cancer screening purposes and is asymptomatic. - Smoking cessation counseling offered. Patients can always call [phone]. - Will arrange for a LDCT scan of the chest for screening purposes at [facility]. - Risks, benefits, and alternatives were discussed in detail and the patient agrees to proceed. - Risks discussed include but are not limited to: radiation exposure, anxiety during testing and while awaiting results, false negatives, false positives and possibility of additional intervention such as further imaging or surgical procedures for benign disease. - Benefits are obviously detection of lung cancer at an early stage which can lead to improved outcomes. - Discussed the importance of screening program compliance with adherence to yearly LDCT scan as scheduled - or sooner interval scans for personalized screening regimen. - Discussed follow up plan. Our office will send a letter discussing results and if needed set up phone call and office visit based on CT findings. - Patient educated on results categorization and the management decisions for suspicious findings potentially found on the screening LDCT scan. Any patient with a Lung RADS score of 3 or 4 will be reviewed by a multidisciplinary team at [facility] to form a plan of action in regards to scan findings. - If further work up is warranted for a suspicious lung finding this will be followed by the Lung Cancer Screening program in conjunction with the Thoracic Surgery Department at [facility]. - A copy of the office note and LDCT will be sent to the patient's PCP - as well as documentation on any associated further plans of care. - Incidental findings on LDCT are the PCP's responsibility. These findings are indicated with an S finding on the LDCT Assessment. A note discussing the findings will be sent to the PCP who is then responsible for further management. - All questions answered.? Coding Level of Care Code Lung Cancer Screening G0296 Diagnoses Personal history of nicotine dependence Z87.891
--- OUTSIDE RECORDS SUMMARY | 2024-12-13 09:44 | XMS_ITS | Clinical Summary ---
Author Organization [facility] ity Address [address] [place] [address] Care Team Providers Care Weatherseal Technician Name Role Phone Katelynn Young MD Primary Care Provider [phone] Allergies Active Allergy Reactions Criticality Noted Date Comments Atenolol 08/08/2016 cough Medications naproxen (NAPROSYN) 500 mg tablet TAKE 1 [...] by mouth daily for 360 days. 02/15/2024 Active metoprolol succinate (TOPROL-XL) 100 mg 24 [...] BY MOUTH DAILY 90 tablet 10/17/2024 Active Active Problems Problem Noted Date Diagnosed Date [...] drink = 0.6 oz pur e alcohol) Comments Unknown Sex and Gender Information Value Date Recorded Sex Assigned at Not on file Legal Sex Female 5:14 PM EST Gender Identity Not on file Sexual Orientation [...] 05/31/2025 12:30 PM EDT Appointment Radiology Department [address] [address] Health Maintenance Due Date Last Done Comments Zoster Vaccines (1 of 2) 2005 Depression Screening 09/03/2022 Falls Risk Assessment 09/03/2022 Osteoporosis Screening (Bone Density Screening) 09/03/2022 Social Influencers of Health Screening 09/03/2022 Pneumococcal Vaccine: 50+ Years (2 of 2 - PPSV23) 04/19/2023 04/19/2022 COVID-19 Vaccine ( - season) 2024 10/29/2021, 01/26/2021, 12/30/2020 Influenza [...] patient's age to complete this topic Meningococcal B Vacine Aged Out No lo nger eligible based on patient's age to complete this topic RSV Immunization Patients Under 20 months Aged Out No longer eligible based on patient's age to complete this topic Varicella Vaccines Aged Out No longer eligible based on patient's age to complete this topic Procedures Procedure Name Priority Date/Time Associated Diagnosis Comments HM STOOL BASED TEST Routine 07/22/2024 ANNUAL BMP BLOOD TEST Routine 02/09/2024 LIPID PANEL Routine 02/09/2024 DIAGNOSTIC MAMMOGRAPHY WITH CAD UNILATERAL Routine 09/08/2023 3:21 PM EST Other abnormal and inconclusive findings on diagnostic imaging of breast HEPATITIS C SCREENING Routine 08/08/2016 from Last 3 Months or Most Recently Relevant to Health Maintenance Results * Stool Based Tests (FOBT/FIT) (07/22/2024) [facility] Colorectal Cancer Screening: Stool Based Tests no interpretation , abstracted [facility] Provider HEALTH MAINTENANCE Final Result * Annual BMP Blood Test (02/09/2024) [facility] Annual BMP Blood Test abstracted [facility] Final Result * (ABNORMAL) Lipid panel (02/09/2024) [facility] LDL/HDL Ratio 3 0 - 4 Triglycerides 152(A) 0 - 150 mg/dL Cholesterol 173 0 - 200 mg/dL HDL 70 >=40 mg/dL LDL Cholesterol 73 0 - 100 mg/dL Blood Venous blood specimen / Unknown [facility] LAB BLOOD ORDERABLES Lucrecia l Result * DIAGNOSTIC MAMMOGRAPHY WITH CAD UNILATERAL (09/08/2023 [...] Unilateral left digital diagnostic mammography is obtained andre in conjunction with computer aided detection. Tomosynthesis [...] studies. Katelynn Young MD IMG BI PROCEDURES Edited Result - Final * Hepatitis C Screening (08/08/2016) Hepatitis C Screening abstracted Historical Provider HEALTH MAINTENANCE Final Result from Last 3 Months or Most Recently Relevant to Health Maintenance Care Teams Weatherseal Technician Relationship Specialty Start Date End Date Katelynn Young MD [address] [place] [id number] PCP - General 07/25/1999
== END 2024-12-13 09:42 | disposition home or self-care (01) ==
PROVIDERS: PCP Nurse Practitioner Family; Referring Provider Nurse Practitioner Family; Visit Provider Physician Assistant Medical
DX: Z87.891 Personal history of nicotine dependence (principal)
CPT/HCPCS: G0296

== ENCOUNTER 2024-12-13 09:30 | Outpatient (REF) | payer OTHER, SELFPAY ==
--- NOTE | ~2024-12-13 | CT_ITS ---
CLINICAL HISTORY: Z87.891 - Personal history of nicotine dependence CT lung cancer screening (LDCT) Comparison: CT/SR - CT ANGIO CHEST PE PROTOCOL - 02/18/23 11:31 EDT Technique: Axial CT images of the chest using low-dose technique. Referring provider counseled the patient on shared decision-making for LDCT screening. Additional counseling was provided on smoking cessation. Effective radiation dose total: DLP 42.5 mGycm, CTDIvol 1.4 mGy. Findings: Lung: The trachea and central bronchi are patent. No dense consolidation, pleural effusion or pneumothorax. 2 mm noncalcified right lower lobe nodule image 67 series 4. Mild apical predominant centrilobular emphysema. Coronary artery calcifications: Heavy Mediastinal structures are otherwise unremarkable. No chest wall lesions, axillary adenopathy or thyroid nodules. Limited upper abdomen: Unremarkable Other: No acute osseous findings. Impression: Benign-appearing punctate right lower lobe pulmonary nodule. Mild apical emphysema. Lung rads category 1. Category 1: Normal; continue annual screening Category 2: Benign appearance or behavior, continue annual screening Category 3: Probably benign, [address] recommended Category 4A: Suspicious, [address] recommended; may consider PET/CT Category 4B: Suspicious, Additional diagnostics and/or tissue sampling recommended Category 4X: Suspicious, Additional diagnostics and/or tissue sampling recommended Category 0: Recalls (incomplete screen due to Incomplete coverage, Noise, Respiratory motion, Expiration, Obscured by acute abnormality) This document has been electronically signed by: Merle Gamboa MD on 12/14/2024 08:22:17
--- OUTSIDE RECORDS SUMMARY | 2024-12-13 10:50 | XMS_ITS | Clinical Summary ---
Author Organization [facility] ity Address [address] [place] [address] Care Team Providers Care [place] Utility Worker Name Role Phone Katelynn Young MD Primary Care Provider [phone] Allergies Active Allergy Reactions Criticality Noted Date [...] 05/31/2025 12:30 PM EDT Appointment Radiology Department [address] [address] Health Maintenance Due Date Last Done Comments [...] Results * Stool Based Tests (FOBT/FIT) (07/22/2024) [facility] Colorectal Cancer Screening: Stool Based Tests no interpretation , abstracted [facility] Provider HEALTH MAINTENANCE Final Result * Annual BMP Blood Test (02/09/2024) [facility] Annual BMP Blood Test abstracted [facility] Final Result * (ABNORMAL) Lipid panel (02/09/2024) [facility] LDL/HDL Ratio 3 0 - 4 Triglycerides 152(A) 0 - 150 mg/dL Cholesterol 173 0 - 200 mg/dL HDL 70 >=40 mg/dL LDL Cholesterol 73 0 - 100 mg/dL Blood Venous blood specimen / Unknown [facility] LAB BLOOD ORDERABLES Lucrecia l Result * [...] Recently Relevant to Health Maintenance Care Teams [place] Utility Worker Relationship Specialty Start Date End Date Katelynn Young MD [address] [place] [id number] PCP - General 07/25/1999
== END 2024-12-13 09:31 | disposition home or self-care (01) ==
LOC: HO.CT 09:30
PROVIDERS: PCP Nurse Practitioner Family; Visit Provider Physician Assistant Medical
DX: Z12.2 Encounter for screening for malignant neoplasm of respiratory organs (principal); Z87.891 Personal history of nicotine dependence
CPT/HCPCS: 71271; G0296

== ENCOUNTER → 2024-12-13 09:33 | Outpatient (BNV) | payer OTHER, SELFPAY | PROVIDERS: PCP Nurse Practitioner Family; Visit Provider Radiology Diagnostic Radiology | DX: Z87.891 Personal history of nicotine dependence (principal) | CPT/HCPCS: 71271 ==

== ENCOUNTER 2025-02-08 07:25 | Outpatient (REF) | payer OTHER, SELFPAY ==
[2025-02-08 11:16] LABS: MANUAL DIFF FLAG NO
[2025-02-08 11:33] LABS: Appearance Urine Clear; Color Urine Yellow; Glucose Urine UA Negative (Negative); Leukocyte Esterase Urine Negative (Negative); Nitrite Urine Negative (Negative); Specific Gravity - Urine 1.015 (1.005-1.025); Urine Blood Negative (Negative); Urine Ketones Negative (Negative); Urine Protein Negative (Neg-Trace)
[2025-02-08 11:33] LABS: Basophils Percent Auto 0.5 % (0-2); Eosinophils Absolute Auto 0.2 X10*3/uL (0.0-0.4); Eosinophils Percent Auto 2.2 % (0-4); Hematocrit 35.2 % (37.0-47.0); Hemoglobin 11.4 g/dl (12.0-16.0); Imm Gran Abs Auto 0.04 X10*3/uL (0.00-0.03); Imm Gran Pct Auto 0.5 % (0.0-0.4); Lymphocytes Absolute Auto 2.1 X10*3/uL (1.2-4.9); Lymphocytes Percent Auto 27.6 % (20-40); Mean Corpuscular HGB Conc 32.4 g/dl (31.0-35.0); Mean Corpuscular Hemoglobin 30.8 pg (27.0-33.0); Mean Corpuscular Volume 95.1 fL (80.0-98.0); Mean Platelet Volume 10.1 fL (9.4-12.3); Monocytes Absolute Auto 0.8 X10*3/uL (0.1-1.2); Monocytes Percent Auto 10.5 % (2-11); Neutrophils Absolute Auto 4.4 x10*3/uL (2.0-8.3); Neutrophils Percent Auto 58.7 % (45-73); Platelet Count 241 X10*3/uL (160-400); Red Cell Distribution Width 13.5 % (11.0-16.0); White Blood Count 7.4 X10*3/uL (4.8-10.8)
[2025-02-08 11:41] LABS: Alanine Aminotransferase 18 U/L (0-31); Albumin Level 3.7 g/dL (3.5-5.0); Alkaline Phosphatase 74 U/L (39-117); Anion Gap 11 (12-20); Aspartate Amino Transferase 21 U/L (5-31); Bilirubin Total 0.5 mg/dL (0.0-1.0); Blood Urea Nitrogen 22 mg/dL (9-16); Calcium 9.3 mg/dL (8.4-10.2); Carbon Dioxide 26 mmol/L (22-29); Chloride 110 mmol/L (96-108); Cholesterol 156 mg/dL (<200); Estimated Glomerular Filt Rate > 60; Glucose Fasting 94 mg/dL (60-99); HDL Cholesterol 52 mg/dL (>40); LDL Cholesterol Calculated 84 mg/dL (<100); Potassium 4.3 mmol/L (3.3-5.1); Sodium 143 mmol/L (135-145); Total Protein 6.3 g/dL (6.5-8.0); Triglycerides 100 mg/dL (<150)
[2025-02-08 12:02] LABS: TSH reflex Free T4 0.67 uIU/mL (0.32-4.0); Vitamin D 25-OH Total 49.4 ng/mL (>30)
== END 2025-02-08 07:26 | disposition home or self-care (01) ==
LOC: HO.HMGCLDS 07:25
PROVIDERS: Visit Provider Nurse Practitioner Family
DX: I25.10 Atherosclerotic heart disease of native coronary artery without angina pectoris (principal); E55.9 Vitamin D deficiency, unspecified
CPT/HCPCS: 36415; 80053; 80061; 81003; 82306; 84443; 85025

== ENCOUNTER 2025-03-07 04:05 | Emergency (ER) | payer OTHER, MEDICARE, SELFPAY ==
[2025-03-07 04:19] VITALS: BP 176/92; BP 180/90; PULSE 105; RESP 18; TEMP 36.8; O2SAT 94; O2SAT 95; BMI 26.5
--- NOTE | 2025-03-07 04:27 | ED.GENADULT ---
HPI - General Adult General Chief complaint: Back Pain/Injury Stated complaint: BACK AND LEG PAIN Time Seen by Provider: 03/07/25 04:21 Source: patient and EMS Mode of arrival: EMS Limitations: no limitations History of Present Illness ED Provider: Dr. Lindsey Hunter HPI narrative: Patient comes to the emergency room complaining of shooting pains down her left leg and occasionally on the right. Patient states that she has had longstanding history of spinal stenosis. Patient states that occasionally she does have pain in the back. However, over last few days, she has been moving to a different house and has been caring heavy stuff. Patient believes this exacerbated the back pain. Denies any falls. Patient is adamant that she has no urinary/fecal retention/incontinence. Patient states that she has no weakness in her legs, it is just the pain with certain movements. Patient states that she has been taking oxycodone at home without any relief. Related Data Home Medications ?Medication ?Instructions ?Recorded ?Confirmed amlodipine 10 mg tablet 10 mg PO DAILY 02/13/23 10/24/24 atorvastatin 40 mg tablet 40 mg PO DAILY 02/13/23 10/24/24 cholecalciferol (vitamin D3) 50 50 mcg PO DAILY 02/13/23 10/24/24 mcg (2,000 unit) capsule metoprolol succinate 100 mg 100 mg PO DAILY 02/13/23 10/24/24 tablet,extended release 24 hr omeprazole 20 mg capsule,delayed 20 mg PO DAILY@0630 02/13/23 10/24/24 release losartan 100 mg tablet mg PO DAILY 10/11/24 10/24/24 aspirin 81 mg tablet,delayed 81 mg PO DAILY 10/24/24 10/24/24 release (Adult Aspirin Regimen) Previous Rx's ?Medication ?Instructions ?Recorded naproxen 500 mg tablet 500 mg PO BID 20 days #40 tabs 02/24/23 hydrocortisone 2.5 % topical cream 1 appl topical DAILY PRN skin 10/24/24 irritation #30 grams metoprolol succinate 25 mg 25 mg PO DAILY #90 tabs 02/05/25 tablet,extended release 24 hr hydromorphone 2 mg tablet 2 mg PO ONCE PRN pain #2 tabs 03/07/25 (Dilaudid) Allergies Allergy/AdvReac Type Severity Reaction Status Date / Time atenolol [ATENOLOL] Allergy Unknown COUGH Verified 03/07/25 04:30 ADHESIVE BANDAGE Allergy Unknown RASH Uncoded 03/07/25 04:30 Review of Systems Review of Systems: Constitutional : No Weight loss, No Fever, No Chills, No Night Sweats, No Fatigue, No Malaise ENT/Mouth : No Hearing loss, No Ear Pain, No Nasal Congestion, No Sinus Pain, No Hoarseness, No sore throat, No Rhinorrhea, No Swallowing Difficulty Eyes: No Eye Pain, No Swelling, No Redness, No Foreign Body, No Discharge, No Vision Changes Cardiovascular : No Chest Pain, No SOB, No Dyspnea on Exertion, No Orthopnea, No Edema, No Palpitations Respiratory : No Cough, No Sputum, No Wheezing, No Smoke Exposure, No Dyspnea Gastrointestinal : No Nausea, No Vomiting, No Diarrhea, No Constipation, No abdominal Pain, No Hematochezia, No Melena Genitourinary : no irregular bleeding, No Dysuria, No Urinary Frequency, No Hematuria, No Urinary Incontinence, No Urgency, No Flank Pain, No Urinary Flow Changes, No Hesitancy Musculoskeletal : Complaining of lower back pain radiating towards the left leg posteriorly, occasional mild shooting pain on the right side posterior leg as well, no pain at rest, only with certain movements, joint pain, No Myalgias, No Joint Swelling Skin : No Skin Lesions, No rash Neuro : No Weakness, No Numbness, No Paresthesias, No Loss of Consciousness, No Dizziness, No Headache Psych : No Anxiety/Panic, No Depression, No SI/HI/AH/VH, No Social Issues, Heme/Lymph: No Bruising, No Bleeding,No Lymphadenopathy Endocrine : No Polyuria, No Polydipsia, No Temperature Intolerance [facility] Past Medical History Medical History CAD (coronary artery disease) Hydronephrosis with urinary obstruction due to renal calculus Postmenopausal Vitamin D deficiency Personal history of nicotine dependence Surgical History (Updated 12/13/24 @ 09:26 by Mary Kate Arguelles PA-C) History of tubal ligation History of tonsillectomy History of heart artery stent History of cystoscopy History of right cataract surgery History of left breast biopsy Family History Family History (Updated 11/21/24 @ 12:15 by Mary Kate Arguelles PA-C) Father No problems noted. Mother No problems noted. Sister Breast cancer, Onset Age: 47 Social History Social History (Updated 12/13/24 @ 09:20 by Mary Kate Arguelles PA-C) Household Members: Family Housing: House Do you presently have visiting nurse or other home services: No Alcohol intake: never Comment: patient refused camera, chair alarm, bed alarm Patient Tobacco Use Status: Former Tobacco user Years Smoked: (onset 16yo, 1ppd x 41yrs, 40pyh - quit 2012) Smoked in Last 30 Days: No e-Cigarette/Vaping Use: Never Used Second Hand Smoke Exposure: No Use of substances other than those prescribed or required for medical reasons: No Advance Directives: Yes Advance Directives Information Provided: Yes Advance Directives on File: No service: No Current occupational status: employed Current occupation: [employer] Current occupational exposures/hazards: No Cognitive needs: No Hearing needs: No Vision needs: Yes Physical Exam ED Vital Signs: Vital Signs - 24 hr 03/07/25 04:19 Temperature 98.3 F Pulse Rate 105 H Respiratory Rate 18 Blood Pressure 176/92 H Pulse Oximetry 94 Oxygen Delivery Method Room Air BMI result Body Mass Index 26.5 Const Other: Appearance: Alert. Oriented X3. No acute distress. Eyes: Pupils equal, round and reactive to light. ENT: Pharynx normal. Neck: Normal inspection. Neck supple. No lymph nodes noted. No crepitus CVS: Normal heart rate and rhythm. Pulses normal. Normal S1 and S2 Respiratory: No respiratory distress. Breath sounds normal. No Wheezing. No rales Abdomen: Soft and nontender. No rigidity. No distention. Skin: Skin warm and dry. Normal skin color. Normal skin turgor. Back: No pain to palpation over the thoracic/lumbar spine. Positive straight leg raise test on the left. Extremities: No lower extremity edema. No Lacerations. No Rash, patient has 5/5 strength in both legs. Neuro: Oriented X 3. No motor deficit. No sensory deficit. Moving all extremities. No slurred speech. CN 2 through 12 grossly intact Psych: calm, cooperative, normal affect Course Course Course Narrative: Patient complaining from her lower back down her left leg, patient known to have spinal stenosis Patient denies any neurological deficits including weakness or urinary incontinence/retention. I discussed with the patient that we can offer her IM Decadron and hydromorphone. Patient states that she has been taking oxycodone at home without any relief. Patient agrees with plan Given patient's physical exam, strength in her extremities, no red flag symptoms, cauda equina is not suspected Medications Administered Discontinued Medications Generic Name Dose Route Start Last Admin Trade Name Freq PRN Reason Stop Dose Admin Dexamethasone Sodium Phosphate 4 mg 03/07/25 04:27 03/07/25 04:52 Dexamethasone Sod Phosphate 4 Mg/Ml Vial IM 03/07/25 04:28 4 mg ONCE ONE Administration Hydromorphone HCl 1 mg 03/07/25 04:27 03/07/25 04:52 Hydromorphone Hcl 1 Mg/Ml Syringe IM 03/07/25 04:28 1 mg ONCE ONE Administration Protocol Medical Decision Making Medical Decision Making MDM Narrative: Patient was given a dose of IM Dilaudid and Decadron. Patient was able to ambulate unassisted to the bathroom. Patient states that she still has the pain but it is much better. Patient states that she sees a sas analyst who usually manages her pain. Patient states that she will have a follow-up appointment in the near future. Differential Diagnosis Differential Diagnoses: The differential diagnosis associated with the presentation includes (Sciatica, bulge disc, spinal stenosis) Admission/Observation Consideration of admission/observation: Escalation of care including admission/observation considered (Given patient's amount of pain, observation was considered. However, she did much better after IM medications) Critical Care Time Critical Care Time Critical Care Time: Yes Total Critical Care Time: 35 Attestation: I have personally provided critical care time. Time includes review of lab data, radiology results, discussion with consultants, and monitoring for potential decompensation. Intervention performed as documented. Discharge Plan Discharge Clinical Impression: Spinal stenosis, Lumbar radiculopathy Patient Disposition: Home, Self-Care Instructions: Lumbar Radiculopathy (ED) Additional Instructions: Please follow-up with your primary care physician tomorrow. If you have any worsening or new symptoms, please return to the emergency room or call 911 Prescriptions: New hydromorphone [Dilaudid] 2 mg tablet 2 mg PO ONCE PRN (Reason: pain) Qty: 2 0RF Rx Instructions: Partial Fill upon patient request. No Action naproxen 500 mg tablet 500 mg PO BID 20 Days Qty: 40 0RF metoprolol succinate 25 mg tablet extended release 24 hr 25 mg PO DAILY Qty: 90 1RF Rx Instructions: Take with metoprolol 100mg daily-125mg daily atorvastatin 40 mg tablet 40 mg PO DAILY metoprolol succinate 100 mg tablet extended release 24 hr 100 mg PO DAILY amlodipine 10 mg tablet 10 mg PO DAILY omeprazole 20 mg capsule,delayed release(DR/EC) 20 mg PO DAILY@0630 cholecalciferol (vitamin D3) 50 mcg (2,000 unit) capsule 50 mcg PO DAILY losartan 100 mg tablet PO DAILY aspirin [Adult Aspirin Regimen] 81 mg tablet,delayed release (DR/EC) 81 mg PO DAILY hydrocortisone 2.5 % cream 1 appl topical DAILY PRN (Reason: skin irritation) Qty: 30 0RF Stand Alone Forms: Work/School Release Print Language: [place]
--- NOTE | 2025-03-07 04:36 | PC.NURSE ---
Pt LEXI from home, A&Ox3. Pt reports having bilateral leg pain radiating between her lower back and quadriceps area rated at a 10/10. Stated that earlier in the evening @2029 she took her Rx pain medication and it resulted in the pain relieving from a 10 to an 8. Pt stated that her legs began to feel numb and described the sensation as tingling like when your leg falls asleep . Pt reports using a cane since yesterday d/t the pain, she does not use assertive device @baseline. Pt receives scheduled cortisone and steroid shots in both knees, and back.
[2025-03-07] MEDS: HYDROmorphone HCl 1 MG/ML SYRINGE IM (04:52)
[2025-03-07] MEDS: dexAMETHasone sod phosphate 4 MG/ML VIAL IM (04:52)
--- OUTSIDE RECORDS SUMMARY | 2025-03-07 05:05 | XMS_ITS | Clinical Summary ---
Author Organization [facility] ity Address [address] [place] [address] Care Team Providers Care Percussion Instrument Tuner Name Role Phone Katelynn Young MD Primary Care Provider [phone] Allergies Active Allergy Reactions Criticality Noted Date Comments Atenolol 08/08/2016 cough Medications naproxen (NAPROSYN) 500 mg tablet TAKE 1 TABLET BY MOUTH TWICE DAILY WITH MEALS 180 tablet 1 4 Active cholecalcifero l (VITAMIN D-3) 50 mcg (2,000 unit) capsule TAKE 1 CAPSULE BY MOUTH EVERY DAY 90 capsule 1 4 Active aspirin 81 mg EC tablet Take 1 tablet (81 mg total) by mouth 1 (one) time each day. Active metoprolol succinate (TOPROL-XL) 100 mg 24 hr tablet TAKE 1 TABLET BY MOUTH DAILY 90 tablet 5 Active amLODIPine (NORVASC) 10 mg tablet TAKE 1 TABLET BY MOUTH DAILY 90 tablet 5 Active omeprazole (PriLOSEC) [address] capsule TAKE 1 CAPSULE BY MOUTH DAILY 90 capsule 5 Active atorvastatin (LIPITOR) 40 mg tablet TAKE 1 TABLET BY MOUTH DAILY 90 tablet 5 Active losartan (COZAAR) 100 mg tablet TAKE 1 TABLET BY MOUTH DAILY 90 tablet 5 Active metoprolol succinate (TOPROL-XL) 25 mg 24 hr tablet TAKE 1 TABLET BY MOUTH DAILY 30 tablet 5 Active metoprolol succinate (TOPROL-XL) 25 mg 24 hr tablet Take 1 Tablet by mouth daily for 360 days. 4 02/07/20 25 Discontinued Active Problems Problem Noted Date Diagnosed [...] 06/07/2013,06/08/2012,06/10/2011,2006 Influenza, Unspecified 07/20/2022,07/06/2014 PPD Test 06/09/2001,06/07/2001 Next Generation Contracting SARS-CoV-2 COVID-19, mRNA, LNP-S, preservative free 01/26/2021,12/30/2020 [...] 05/31/2025 12:30 PM EDT Appointment Radiology Department [address] [address] Health Maintenance Due Date Last Done Comments Zoster Vaccines (1 of 2) 2005 Depression Screening 09/03/2022 Falls Risk Assessment 09/03/2022 Osteoporosis Screening (Bone Density Screening) 09/03/2022 Social Influencers of Health Screening 09/03/2022 Pneumococcal Vaccine: 50+ Years (2 of 2 - PPSV23) 04/19/2023 04/19/2022 COVID-19 Vaccine ( season) 2024 10/29/2021, 01/26/2021, 12/30/2020 Hypertension/CHF/CAD Annual BMP Blood Test 02/08/2025 02/09/2024, 02/09/2024 Influenza Vaccine (Season Ended) 2025 10/03/2023, 07/20/2022, 07/19/2021, Additional history exists Colorectal Cancer Screening: Stool Based Tests (FOBT/FIT) 07/22/2025 07/22/2024 Breast Cancer Screening 09/08/2025 09/08/20 23, 08/26/2023, 03/19/2022, Additional history exists Cholesterol Screening (Lipid Panel) 02/08/2029 02/09/2024, 02/09/2024 RSV Immunization Adult Patients (1 - 1-dose 75+ series) 2030 DTaP,Tdap,and [...] age to complete this topic Meningococcal B Vaccine Aged Out No l onger eligible based on patient's age to complete this topic RSV Immunization Patients Under 20 months Aged Out No longer eligible based on patient's age to complete this topic Varicella Vaccines Aged Out No longer eligible based on patient's age to complete this topic Procedures Procedure Name Priority Date/Time Associated Diagnosis Comments HM STOOL BASED TEST Routine 07/22/2024 HM ANNUAL BMP BLOOD TEST Routine 02/09/2024 LIPID PANEL Routine 02/09/2024 DIAGNOSTIC MAMMOGRAPHY WITH CAD UNILATERAL Routine 09/08/2023 3:21 PM EST Other abnormal and inconclusive findings on diagnostic imaging of breast HEPATITIS C SCREENING Routine 08/08/2016 from Last 3 Months or Most Recently Relevant to Health Maintenance Results * Stool Based Tests (FOBT/FIT) (07/22/2024) [facility] Colorectal Cancer Screening: Stool Based Tests no interpretation , abstracted [facility] [place] [facility] MAINTENANCE Final Result * Annual BMP Blood Test (02/09/2024) Pathologist [facility] Annual BMP Blood Test abstracted [facility] Final Result * (ABNORMAL) Lipid panel (02/09/2024) [facility] LDL/HDL Ratio 3 0 - 4 Triglycerides 152(A) 0 - 150 mg/dL Cholesterol 173 0 - 200 mg/dL HDL 70 >=40 mg/dL LDL Cholesterol 73 0 - 100 mg/dL Blood Venous blood specimen / Unknown [facility] [place] LAB BLOOD ORDERABLES Lucrecia l Result * [...] Recently Relevant to Health Maintenance Care Teams Percussion Instrument Tuner Relationship Specialty Start Date End Date Katelynn Young MD [address] [place] [address] PCP - General 07/25/1999
[2025-03-07 05:48] VITALS: BP 141/79; PULSE 86; RESP 16; TEMP 36.6; O2SAT 94
[2025-03-07 05:57] VITALS: BP 141/79; PULSE 86; RESP 16; TEMP 36.6; O2SAT 94
== END 2025-03-07 05:58 | disposition home or self-care (01) ==
PROVIDERS: Emergency Provider Emergency Medicine; PCP Nurse Practitioner Family
DX: M54.16 Radiculopathy, lumbar region (principal); M48.00 Spinal stenosis, site unspecified; M79.604 Pain in right leg; I25.10 Atherosclerotic heart disease of native coronary artery without angina pectoris; Z79.899 Other long term (current) drug therapy
CPT/HCPCS: 96372; 99284; J1100; J1171

== ENCOUNTER 2025-03-10 09:02 | Emergency (ER) | payer OTHER, SELFPAY ==
[2025-03-10] VITALS (10 sets, daily range): BP systolic 116–158; BP diastolic 63–74; PULSE 56–80; RESP 16–20; TEMP 36–37.4; O2SAT 92–98; BMI 22.5
--- NOTE | ~2025-03-10 | XR_ITS ---
EXAMINATION: XR SACRUM AND COCCYX CLINICAL INFORMATION: low back pain COMPARISON: None available. TECHNIQUE: 2 views of the sacrum and 2 views of the coccyx were obtained. FINDINGS: No cortical disruption is evident. SI joints are narrowed, with minimal sclerosis and osteophytes, greater on the left. Osteophytes of evident involving both acetabulum. Technical details reticular by bowel gas. There is facet sclerosis and lower lumbar spine. XR/XR sacrum coccyx min 2V IMPRESSION: Mild bilateral SI joint degeneration, left greater than right. Facet osteoarthritis in lower lumbar spine. Sacral detail is obscured by bowel gas. No gross deformity. Electronically signed by: Marcus Casas MD 03/10/2025 12:38 PM EDT
--- NOTE | ~2025-03-10 | XR_ITS ---
EXAMINATION: XR LUMBOSACRAL SPINE CLINICAL INFORMATION: low back pain COMPARISON: None available. TECHNIQUE: Three views of the lumbosacral spine. FINDINGS: There are 5 nonrib-bearing lumbar segments. T11-12: There is endplate sclerosis osteophytes and moderate disc space narrowing. T12-L1: There is mild displacement. L2 3: There is mild disc space narrowing and endplate sclerosis with osteophytes. There is facet sclerosis and osteophytes. L3-4: There is subtle retrolisthesis and mild disc space narrowing with facet sclerosis and osteophytes. L4-5: There is mild disc space narrowing with grade 1 anterolisthesis and facet sclerosis with osteophytes. L5-S1: There is moderate disc space narrowing with endplate sclerosis and osteophytes. There is also facet sclerosis and osteophytes. There is moderate atherosclerotic calcification in the abdominal aorta, common iliac, splenic, celiac, and superior mesenteric arteries.. XR/XR lumbar spine 2-3V IMPRESSION: Multilevel degenerative disc disease and facet osteoarthritis. Moderate atherosclerotic calcifications. Electronically signed by: Marcus Casas MD 03/10/2025 12:42 PM EDT
--- OUTSIDE RECORDS SUMMARY | 2025-03-10 10:14 | XMS_ITS | Clinical Summary ---
Author Organization [facility] ity Address [address] [place] [address] Care Team Providers Care Small Appliance Assembly Supervisor Name Role Phone Katelynn Young MD Primary Care Provider [phone] Allergies Active Allergy Reactions Criticality Noted Date [...] 1 TABLET BY MOUTH DAILY 90 tablet 01/13/2025 Active amLODIPine (NORVASC) 10 mg tablet TAKE 1 TABLET BY MOUTH DAILY 90 tablet 01/13/2025 Active omeprazole (PriLOSEC) [address] capsule TAKE 1 CAPSULE BY MOUTH DAILY 90 capsule 01/13/2025 Active atorvastatin (LIPITOR) 40 mg tablet TAKE 1 TABLET BY MOUTH DAILY 90 tablet 01/13/2025 Active losartan (COZAAR) 100 mg tablet TAKE 1 TABLET BY MOUTH DAILY 90 tablet 01/13/2025 Active metoprolol succinate (TOPROL-XL) 25 mg 24 hr tablet TAKE 1 TABLET BY MOUTH DAILY 30 tablet 02/06/2025 Active Active Problems Problem Noted Date Diagnosed [...] 05/31/2025 12:30 PM EDT Appointment Radiology Department [address] [address] Health Maintenance Due Date Last Done Comments [...] Results * Stool Based Tests (FOBT/FIT) (07/22/2024) [facility] Colorectal Cancer Screening: Stool Based Tests no interpretation , abstracted [facility] Provider HEALTH MAINTENANCE Final Result * Annual BMP Blood Test (02/09/2024) [facility] Annual BMP Blood Test abstracted [facility] Final Result * (ABNORMAL) Lipid panel (02/09/2024) [facility] LDL/HDL Ratio 3 0 - 4 Triglycerides 152(A) 0 - 150 mg/dL Cholesterol 173 0 - 200 mg/dL HDL 70 >=40 mg/dL LDL Cholesterol 73 0 - 100 mg/dL Blood Venous blood specimen / Unknown Result [facility] LAB BLOOD ORDERABLES Lucrecia l [...] Recently Relevant to Health Maintenance Care Teams Small Appliance Assembly Supervisor Relationship Specialty Start Date End Date Katelynn Young MD [address] [place] [id number] PCP - General 07/25/1999
--- NOTE | 2025-03-10 12:17 | ED.BACK ---
HPI - Back Pain/Injury General Chief Complaint: Back Pain/Injury Stated Complaint: BACK PAIN,UNABLE TO AMB,H/O STENOSIS PER EMS Time Seen by Provider: 03/10/25 11:10 Source: patient, EMS, RN notes reviewed and old records reviewed Mode of arrival: EMS History of Present Illness ED Provider: Gabriella Orantes PA-C HPI Narrative: 69-year-old female with a past medical history CAD, spinal stenosis, presenting to the ED via EMS complaining of low back > left x 4 days with radiation down bilateral LE with associated paresthesias s/p moving multiple heavy boxes. Denies direct injury, trauma/fall. States she is currently moving in with her sister which she feels exacerbated her symptoms. Was seen and treated in our ED on 03/07/2025 for similar symptoms, states was given a few injections and 2 pills to go home which she took without relief. Reports difficulty with ADLs secondary to pain. Denies fever, chills, incontinence, retention, abdominal pain, hematuria/dysuria Related Data Home Medications ?Medication ?Instructions ?Recorded ?Confirmed amlodipine 10 mg tablet 10 mg PO BEDTIME 02/13/23 03/10/25 atorvastatin 40 mg tablet 40 mg PO BEDTIME 02/13/23 03/10/25 cholecalciferol (vitamin D3) 50 50 mcg PO BEDTIME 02/13/23 03/10/25 mcg (2,000 unit) capsule metoprolol succinate 100 mg 100 mg PO BEDTIME 02/13/23 03/10/25 tablet,extended release 24 hr omeprazole 20 mg capsule,delayed 20 mg PO DAILY@0630 02/13/23 03/10/25 release losartan 100 mg tablet 100 mg PO BEDTIME 10/11/24 03/10/25 aspirin 81 mg tablet,delayed 81 mg PO BEDTIME 10/24/24 03/10/25 release (Adult Aspirin Regimen) gabapentin 100 mg capsule 100 - 300 mg PO BEDTIME 03/10/25 03/10/25 metoprolol succinate 25 mg 25 mg PO BEDTIME 03/10/25 03/10/25 tablet,extended release 24 hr Previous Rx's ?Medication ?Instructions ?Recorded naproxen 500 mg tablet 500 mg PO BID 20 days #40 tabs 02/24/23 oxycodone 5 mg tablet 5 mg PO Q6H PRN severe pain (scale 03/12/25 score 7-10) #12 tabs Allergies Allergy/AdvReac Type Severity Reaction Status Date / Time atenolol (ATENOLOL) Allergy Unknown COUGH Verified 03/10/25 09:20 ADHESIVE BANDAGE Allergy Unknown RASH Uncoded 03/07/25 04:30 Review of Systems Review of Systems: Yes all other systems are reviewed and are negative Constitutional: Constitutional: Reports as per HPI Neurologic: Denies Sensory deficit (Neuro) [facility] Past Medical History Attestation statement: The following information was validated with the patient. Source: old records reviewed Medical History CAD (coronary artery disease) Hydronephrosis with urinary obstruction due to renal calculus Postmenopausal Vitamin D deficiency Personal history of nicotine dependence Surgical History History of tubal ligation History of tonsillectomy History of heart artery stent History of cystoscopy History of right cataract surgery History of left breast biopsy Family History Family History Father No problems noted. Mother No problems noted. Sister Breast cancer, Onset Age: 47 Social History Social History Household Members: Family Housing: House Do you presently have visiting nurse or other home services: No Alcohol intake: never Comment: patient refused camera, chair alarm, bed alarm Patient Tobacco Use Status: Former Tobacco user Years Smoked: (onset 16yo, 1ppd x 41yrs, 40pyh - quit 2012) e-Cigarette/Vaping Use: Never Used Second Hand Smoke Exposure: No Advance Directives: Yes Advance Directives on File: Yes Advance Directives Date on File: 03/11/25 Do you have a plan to hurt others: No Plan service: No Current occupational status: employed Current occupation: [employer] Current occupational exposures/hazards: No Cognitive needs: No Hearing needs: No Vision needs: Yes Physical Exam Vital Signs: Vital Signs: Last Vital Signs Temp 98.0 F 03/12/25 06:06 Pulse 58 03/12/25 06:06 Resp 14 03/12/25 06:06 BP 142/70 H 03/12/25 06:06 Pulse Ox 95 03/12/25 06:06 O2 Del Method Room Air 03/12/25 06:06 BMI result Body Mass Index 22.5 Const: General: cooperative, healthy appearing and no acute distress Orientation/consciousness: patient oriented x3 Limitations: no limitations HEENT: Head: Yes normal to inspection and Yes atraumatic Ears: hearing grossly normal bilaterally General nose exam: Normal external nose present Face and sinus: Yes normal facial exam Eyes: General: appearance normal, both eyes and all related structures EOM: EOMs intact bilaterally Neck: Neck: Yes normal visual inspection and Yes no meningeal signs Resp: Effort & Inspection: normal respiratory effort and no respiratory distress Cardio: Rate: regular rate GI: Inspection: Yes normal to inspection Palpation (GI): Soft to palpation, nontender, no guarding and not rigid Back/Spine/Pelvis: Other: No midline cervical/thoracic/lumbar spinous tenderness/step-off or deformity. + left-sided lower lumbar/upper buttock MSK reproducible tenderness to palpation. No erythema/warmth or ecchymosis Skin: Rashes: no rashes Wounds: no wounds Neuro: Other: Strength intact throughout. No saddle anesthesia. Sensation intact to light touch. Neurovascular intact distally General: patient oriented x3, tone normal, moves all extremities and no meningeal signs Cranial nerves: Yes CN's II-XII intact bilaterally Gait exam (Neuro): Normal gait present Motor exam (neuro): 5/5 motor strength present throughout Sensory Exam: No Sensory deficit (Neuro) Extrem: General: Yes normal to inspection Course Course Course Narrative: XR sacrum coccyx min 2V IMPRESSION: Mild bilateral SI joint degeneration, left greater than right. Facet osteoarthritis in lower lumbar spine. Sacral detail is obscured by bowel gas. No gross deformity. XR lumbar spine 2-3V IMPRESSION: Multilevel degenerative disc disease and facet osteoarthritis. Moderate atherosclerotic calcifications. >1358-- on re-evaluation patient reports symptomatic improvement however still feels she is unable to safely discharged home. Plan is for PT/case management eval. Will order additional pain control. Physician observation initiated -1710--physical therapy evaluated patient and recommended short-term rehab 03/11/25 10:34 MIRI Diaz: Physician observation continued, no overnight events reported by nursing. Physical therapy recommending short-term rehab. Case management following for disposition. 03/12/25 09:33 MIRI Diaz: Physician observation continued, no overnight events reported by nursing. [address] is able to offer a bed and is in the process of obtaining insurance authorization. Case management following for disposition. Vital signs stable. 03/12/25 13:19 MIRI Diaz: Patient will be transferred to [facility] via BLS ambulance at 2:30 p.m. today, 03/12/2025 for short-term rehab. Observation care revealed that patient does not meet medical necessity for hospitalization. Final disposition discussed with patient. The patient completed observation care at 1430 on 03/12/25. Medications Administered Generic Name Dose Route Start Last Admin Trade Name Freq PRN Reason Stop Dose Admin Amlodipine Besylate 10 mg 03/10/25 22:15 03/11/25 20:46 Amlodipine Besylate 10 Mg Tablet PO 10 mg BEDTIME LIBAN Administration Protocol Aspirin 81 mg 03/10/25 22:15 03/11/25 20:46 Aspirin Enteric Coated 81 Mg Tablet. PO 81 mg BEDTIME LIBAN Administration Atorvastatin Calcium 40 mg 03/10/25 22:15 03/11/25 20:46 Atorvastatin Calcium 40 Mg Tablet PO 40 mg BEDTIME LIBAN Administration Gabapentin 300 mg 03/11/25 21:00 03/11/25 20:46 Gabapentin 300 Mg Capsule PO 300 mg BEDTIME LIBAN Administration Losartan Potassium 100 mg 03/10/25 22:15 03/11/25 20:46 Losartan Potassium 50 Mg Tablet PO 100 mg BEDTIME LIBAN Administration Protocol Metoprolol Succinate 25 mg 03/10/25 22:15 03/11/25 20:46 Metoprolol Succinate Er 25 Mg Tab.Er.24h PO 25 mg BEDTIME LIBAN Administration Protocol Metoprolol Succinate 100 mg 03/10/25 22:15 03/11/25 21:18 Metoprolol Succinate Er 100 Mg Tab.Er.24h PO 100 mg BEDTIME LIBAN Administration Protocol Naproxen 500 mg 03/10/25 22:15 03/12/25 08:17 Naproxen 500 Mg Tablet PO 500 mg BID LIBAN Administration Omeprazole 20 mg 03/11/25 06:30 03/12/25 06:17 Omeprazole 20 Mg Capsule. PO 20 mg DAILY@0630 LIBAN Administration Oxycodone HCl 5 mg 03/11/25 06:09 03/12/25 08:17 Oxycodone Hcl Immed Release 5 Mg Tablet PO 5 mg Q6H PRN Administration Pain, Moderate(Pain Scale 4-6) Vitamin D 50 mcg 03/10/25 22:15 03/11/25 20:46 Cholecalciferol (Vitamin D3) 25 Mcg Tablet PO 50 mcg BEDTIME LIBAN Administration Discontinued Medications Generic Name Dose Route Start Last Admin Trade Name Teresoq PRN Reason Stop Dose Admin Acetaminophen 650 mg 03/10/25 11:34 03/10/25 12:42 Acetaminophen 325 Mg Tablet PO 03/10/25 11:35 650 mg ONCE ONE Administration Cyclobenzaprine HCl 10 mg 03/10/25 11:34 03/10/25 12:42 Cyclobenzaprine Hcl 10 Mg Tablet PO 03/10/25 11:35 10 mg ONCE ONE Administration Gabapentin 300 mg 03/10/25 22:22 03/10/25 22:33 Gabapentin 300 Mg Capsule PO 03/10/25 22:23 300 mg ONCE ONE Administration Hydromorphone HCl 2 mg 03/10/25 19:21 03/10/25 19:40 Hydromorphone Hcl 2 Mg Tablet PO 03/10/25 19:22 2 mg ONCE ONE Administration Ketorolac Tromethamine 30 mg 03/10/25 11:34 03/10/25 12:43 Ketorolac Tromethamine 30 Mg/Ml Vial IM 03/10/25 11:35 30 mg ONCE ONE Administration Morphine Sulfate 15 mg 03/10/25 13:58 03/10/25 14:12 Morphine Sulfate Immed Release 15 Mg Tablet PO 03/10/25 13:59 15 mg ONCE ONE Administration Medical Decision Making Medical Decision Making MDM Narrative: 69-year-old female with a past medical history CAD, spinal stenosis, presenting to the ED via EMS complaining of low back > left x 4 days with radiation down bilateral LE with associated paresthesias s/p moving multiple heavy boxes. On exam vital signs stable, NAD, nontoxic appearing, physical exam as noted above. No midline spinous tenderness throughout or red flag symptoms. Reproducible MSK tenderness as elicited above. Abdomen is soft and nontender. Concern for lumbar radiculopathy vs spinal stenosis vs herniated disc. Lower suspicion for cauda equina, cord compression, epidural abscess, fracture, renal stones/pyelo or intra-abdominal pathology Plan: Pain control, x-ray, +/- PT/case management Please refer to course for remaining clinical decision making, interpretation of labs/imaging results, and discussions with consultants and/or family members. Differential Diagnosis Differential Diagnoses: The differential diagnosis associated with the presentation includes As above Admission/Observation Consideration of admission/observation: Escalation of care including admission/observation considered Lab Data MDM Lab Attestation statement: I reviewed the patient's lab results. Labs: Lab Results 03/11/25 Range/Units 13:49 Influenza Type A (PCR) NEGATIVE (Negative) Influenza Type B (PCR) NEGATIVE (Negative) RSV RNA Qual (PCR) NEGATIVE (Negative) SARS-CoV-2 RNA (RT-PCR) NEGATIVE (Negative) Independent Interpretation I performed an independent interpretation of an: Plain X-Ray Radiology Impression Discussion of test interpretation with radiology: I have reviewed the radiologist's reading. Independent Historian Clinical information obtained from an independent historian. History obtained from or confirmed by: EMS External Record Review External record reviewed: Inpatient record, Office record, Outpatient record, Prior outpatient labs, Prior outpatient radiology, Primary care record and Outside ED record Tests considered The following testing was considered but not selected: As above Prescription Management I considered prescription management with: Pain Medication and Other Chronic Conditions Patient?s care impacted by: Other (CAD) Social Determinants Patient?s care significantly limited by Social Determinants of Health including: Other Social Determinant of Health Discharge Plan Discharge Clinical Impression: Lumbar radiculopathy Patient Disposition: Xfer SNF Transfer Details: [facility] Instructions: Lumbar Radiculopathy (ED) Prescriptions: New oxycodone 5 mg tablet 5 mg PO Q6H PRN (Reason: severe pain (scale score 7-10)) Qty: 12 0RF Rx Instructions: Partial Fill upon patient request. No Action naproxen 500 mg tablet 500 mg PO BID 20 Days Qty: 40 0RF atorvastatin 40 mg tablet 40 mg PO BEDTIME metoprolol succinate 100 mg tablet extended release 24 hr 100 mg PO BEDTIME Rx Instructions: Take with metoprolol 25 mg for a total dose -125mg daily amlodipine 10 mg tablet 10 mg PO BEDTIME omeprazole 20 mg capsule,delayed release(DR/EC) 20 mg PO DAILY@0630 cholecalciferol (vitamin D3) 50 mcg (2,000 unit) capsule 50 mcg PO BEDTIME gabapentin 100 mg capsule 100 - 300 mg PO BEDTIME metoprolol succinate 25 mg tablet extended release 24 hr 25 mg PO BEDTIME Rx Instructions: Take with metoprolol 100mg daily-125mg daily losartan 100 mg tablet 100 mg PO BEDTIME aspirin [Adult Aspirin Regimen] 81 mg tablet,delayed release (DR/EC) 81 mg PO BEDTIME Referrals: [facility] [Outside] Print Language: Belarusian
[2025-03-10] MEDS: Cyclobenzaprine HCl 10 MG TABLET PO (12:42)
[2025-03-10] MEDS: Acetaminophen 325 MG TABLET 650 MG PO (12:42)
[2025-03-10] MEDS: Ketorolac Tromethamine 30 MG/ML VIAL IM (12:43)
[2025-03-10] MEDS: Morphine Sulfate Immed Release 15 MG TABLET PO (14:12)
--- NOTE | 2025-03-10 18:06 | MHC.CM.ED ---
CM attempted to meet with patient, however she is sleeping soundly and did not wake to name. Per RN, patient was recently medicated. PT is recommending [facility]. Pt will stay overnight. CM will meet with patient to discuss discharge planning when patient wakes.
[2025-03-10] MEDS: HYDROmorphone HCl 2 MG TABLET PO (19:40)
--- NOTE | 2025-03-10 19:44 | PC.NURSE ---
Notified Pharmacy of pt Med Rec, medicated per nov.
--- NOTE | 2025-03-10 21:10 | MHC.CM.ED ---
Addendum entered by Didi Cheema 03/10/25 21:14: No HCP on file. Will review with patient in the morning. Was awakened for assessment. Original Note: CM met with patient to discuss discharge planning. Pt aware that PT is recommending [facility]. Pt has not been to [facility], but requests [facility] as first choice. Then local referrals. Pt has [employer] and Medicare A. She is employed. Pt recently moved in with her sister. She has a cane at home, that she doesn't normally use. The bathroom and stairs are handicapped accessible. She has no home services. Her PCP and insurances have been verified. Medicare A [id number]. CM will follow for discharge planning.
--- NOTE | 2025-03-10 21:53 | PHA.MEDREC ---
Addendum entered by Jossie You formerly [facility] 03/10/25 22:01: REVIEWED BY PHARMACIST Original Note: Pharmacy Consult ? Medication Reconciliation Pharmacy has completed the medication reconciliation. Spoke to patient to confirm med list. Patient states she is no longer on Hydrocortisone 2.5 % cream and Oxycodone-acetaminophen 5-325 mg. Patient confirmed Gabapentin 100mg to 300 mg at bedtime, Metoprolol Succ 100 mg and Metoprolol succ 25 mg for a total dose of 125 mg. Patient states she takes all her medications at night except for Omeprazole 20 mg.
[2025-03-10] MEDS: Losartan Potassium 50 MG TABLET 100 MG PO (22:29)
[2025-03-10] MEDS: NaPROXEN 500 MG TABLET PO (22:30)
[2025-03-10] MEDS: Atorvastatin Calcium 40 MG TABLET PO (22:31)
[2025-03-10] MEDS: Cholecalciferol (Vitamin D3) 25 MCG TABLET 50 MCG PO (22:31)
[2025-03-10] MEDS: Aspirin Enteric Coated 81 MG TABLET.DR PO (22:32)
[2025-03-10] MEDS: amLODIPine Besylate 10 MG TABLET PO (22:32)
[2025-03-10] MEDS: Gabapentin 300 MG CAPSULE PO (22:33)
--- NOTE | 2025-03-10 22:40 | PC.NURSE ---
medicated per nov, notified ERNESTINE Herrera held Metoprolol due to Pulse being below 60
--- NOTE | 2025-03-11 01:03 | PC.NURSE ---
Pt repositioned for comfort, pt resting in bed. call olmos at the bed side.
[2025-03-11] MEDS: Omeprazole 20 MG CAPSULE.DR PO (05:32)
--- NOTE | 2025-03-11 05:57 | PC.NURSE ---
pt reposition for on the her left side, call bed in at the bed side.
[2025-03-11 06:00] VITALS: BP 149/72; PULSE 64; RESP 17; TEMP 36.5; O2SAT 95
[2025-03-11] MEDS: oxyCODONE HCl Immed Release 5 MG TABLET PO ×3 (06:19→19:44)
[2025-03-11 09:44] VITALS: BP 145/76; PULSE 92; RESP 6; O2SAT 93
[2025-03-11 10:34] VITALS: BP 145/76; PULSE 92; O2SAT 93
--- NOTE | 2025-03-11 12:39 | MHC.CM.ED ---
Patient remains in ER overflow. [facility] is able to offer a bed and is in the process of obtaining insurance auth. Patient aware and agreeable. HCP completed, signed and witnessed. Original given to patient. Copy placed in chart. Continue to monitor for d/c needs.
[2025-03-11 14:00] VITALS: BP 126/69; PULSE 80; RESP 18; TEMP 36.6; O2SAT 96
[2025-03-11 14:57] LABS: Influenza A PCR NEGATIVE (Negative); Influenza B PCR NEGATIVE (Negative); Resp Syncy Virus RNA Qual PCR NEGATIVE (Negative); SARS COV2 PCR INHOUSE NEGATIVE (Negative)
[2025-03-11] MEDS: NaPROXEN 500 MG TABLET PO ×2 (15:00→20:45)
--- NOTE | 2025-03-11 19:19 | PC.NURSE ---
pt reports pain at 10/10 currently, requesting oxycodone as previously reduced pain to tolerable level.
[2025-03-11 20:16] VITALS: BP 145/76; PULSE 73; RESP 18; TEMP 36.2; O2SAT 93
[2025-03-11] MEDS: Gabapentin 300 MG CAPSULE PO (20:46)
[2025-03-11] MEDS: Atorvastatin Calcium 40 MG TABLET PO (20:46)
[2025-03-11] MEDS: Metoprolol Succinate ER 25 MG TAB.ER.24H PO (20:46)
[2025-03-11] MEDS: Losartan Potassium 50 MG TABLET 100 MG PO (20:46)
[2025-03-11] MEDS: amLODIPine Besylate 10 MG TABLET PO (20:46)
[2025-03-11] MEDS: Aspirin Enteric Coated 81 MG TABLET.DR PO (20:46)
[2025-03-11] MEDS: Cholecalciferol (Vitamin D3) 25 MCG TABLET 50 MCG PO (20:46)
--- NOTE | 2025-03-11 21:01 | PC.NURSE ---
metoprolol 100mg not available in xis, awaiting pharmacy to bring to overflow.
[2025-03-11] MEDS: Metoprolol Succinate ER 100 MG TAB.ER.24H PO (21:18)
--- NOTE | 2025-03-11 22:26 | PC.NURSE ---
pt reports unable to sleep d/t light and noise, moved to overflow 1. lights off tv on per pt. door closed per request. all belongings and call olmos within reach. bed alarm on.
[2025-03-12] MEDS: oxyCODONE HCl Immed Release 5 MG TABLET PO ×3 (01:59→14:03)
--- NOTE | 2025-03-12 02:04 | PC.NURSE ---
pt woke up reporting pain worse, requested prn oxycodone. pt verbalized relief with previous dose given. pt medicated per nov. warm blanket given. call olmos within reach.
[2025-03-12 06:06] VITALS: BP 142/70; PULSE 58; RESP 14; TEMP 36.7; O2SAT 95
[2025-03-12] MEDS: Omeprazole 20 MG CAPSULE.DR PO (06:17)
[2025-03-12] MEDS: NaPROXEN 500 MG TABLET PO (08:17)
--- NOTE | 2025-03-12 12:39 | MHC.CM.ED ---
Patient remains in ER overflow. Insurance auth has been obtained by [facility] include [facility] beds at the [facility]. Patient can leave at 230pm. Karen RAWLS booked. Med nec with chart. Patient, Silverio RN and Jessi CHERY aware. Continue to monitor for d/c needs.
[2025-03-12 14:40] VITALS: BP 142/70; PULSE 58; RESP 14; TEMP 36.7; O2SAT 95
== END 2025-03-12 14:51 | disposition skilled nursing facility (03) ==
PROVIDERS: Physician Assistant Medical; Emergency Provider Emergency Medicine Emergency Medical Services; PCP Nurse Practitioner Family
DX: M48.061 Spinal stenosis, lumbar region without neurogenic claudication (principal); M54.16 Radiculopathy, lumbar region; Z03.818 Encounter for observation for suspected exposure to other biological agents ruled out; Z87.891 Personal history of nicotine dependence
CPT/HCPCS: 0241U; 72100; 72220; 96372; 97116; 97161; 99285; J1885

== ENCOUNTER → 2025-03-10 11:34 | Outpatient (BNV) | payer OTHER, SELFPAY | PROVIDERS: Emergency Provider Emergency Medicine Emergency Medical Services; PCP Nurse Practitioner Family; Visit Provider Radiology Diagnostic Radiology | DX: M51.369 Other intervertebral disc degeneration, lumbar region without mention of lumbar back pain or lower extremity pain (principal); M47.816 Spondylosis without myelopathy or radiculopathy, lumbar region; I70.209 Unspecified atherosclerosis of native arteries of extremities, unspecified extremity | CPT/HCPCS: 72100; 72220 ==

== ENCOUNTER 2025-03-25 01:27 | Emergency (ER) | payer OTHER, SELFPAY ==
[2025-03-25] VITALS (16 sets, daily range): BP systolic 53–106; BP diastolic 28–82; PULSE 68–98; RESP 12–20; TEMP 36.4–37.7; O2SAT 93–100; BMI 25.0
--- NOTE | ~2025-03-25 | XR_ITS ---
CLINICAL HISTORY: line placement 1 view chest x-ray. Comparison: CT/SR - CT LUNG SCREENING - 12/13/24 09:38 EDT CR/SR - XR CHEST 1V - 02/15/23 05:35 EDT Findings: Normal lung volumes. Improved pleural-parenchymal disease left lower lobe. No pneumothorax or pleural effusion. Stable cardiomegaly. No passive venous congestion. No midline shift or tracheal deviation. No acute fracture. Right IJ CVC tip right atrium Impression: 1. Right IJ CVC tip right atrium this can be withdrawn 1-2 cm This document has been electronically signed by: Hieu Olsen MD on 03/25/2025 05:45:48
--- NOTE | ~2025-03-25 | CT_ITS ---
CLINICAL HISTORY: LLQ pain CT abdomen and pelvis without IV or oral contrast Comparison: CT - CT ABDOMEN PELVIS W IV CON - 03/25/25 01:49 EDT US - US RENAL BI - 10/07/24 15:16 EST Findings: Subsegmental dependent atelectasis. No dependent layering pleural effusions. Cardiomegaly. Severe calcified coronary artery disease No stones are identified in the kidneys, ureters or bladder. There is no hydronephrosis or perinephric stranding/fluid. Decompressed urinary bladder with Mohr balloon catheter. Evaluation of the liver, spleen, adrenal glands and pancreas demonstrates no lesions. It should be noted that isodense masses may be obscured in the absence of intravenous contrast. No radiopaque gallstones. Borderline gallbladder hydrops. No pathologically enlarged lymph nodes . No ascites demonstrated. Heavy stool burden. Pericolonic inflammatory changes right hemicolon no definite evidence free air. Findings may be the sequela of colitis either infectious inflammatory or even possibly ischemic. No vertebral body compression fractures or spondylolisthesis. No bony destructive lesions. Impression: 1. Heavy stool burden. Pericolonic inflammatory changes right hemicolon may be infectious/ inflammatory or even possibly ischemic. No definite evidence of free air. Mild colitis left hemicolon. 2. Borderline gallbladder hydrops. No radiopaque gallstones. 3. Stable ancillary findings This document has been electronically signed by: Hieu Olsen MD on 03/25/2025 05:42:52
--- NOTE | 2025-03-25 01:40 | ECG_ITS ---
Test Reason : ABD PAIN Blood Pressure : */* mmHG Vent. Rate : 79 BPM Atrial Rate : 79 BPM P-R Int : 154 ms QRS Dur : 78 ms QT Int : 352 ms P-R-T Axes : 46 3 19 degrees QTcB Int : 403 ms Normal sinus rhythm Possible Inferior-posterior infarct , age undetermined Abnormal ECG When compared with ECG of 13-Feb-2023 19:34, Possible Inferior-posterior infarct is now Present T wave inversion less evident in Anterior leads Referred By: Keya Mohr Electronically Signed By: FIOR HORTON MD
--- NOTE | 2025-03-25 01:51 | ED.GENADULT ---
HPI - General Adult General Chief complaint: Abdominal Pain Stated complaint: ABDOMINAL PAIN Time Seen by Provider: 03/25/25 01:38 Source: patient Limitations: no limitations History of Present Illness ED Provider: Keya Mohr PA-C HPI narrative: 69-year-old female with a history of hypertension, hyperlipidemia, known coronary artery disease, kidney stones status post left ureteral stent 2022, GERD, lumbar spinal stenosis, tobacco abuse who presents with the abdominal pain. Patient states she has developed diffuse abdominal pain that has increased in severity throughout the evening. Associated abdominal distention, nausea, vomiting and inability to pass flatus. Denies fever. Related Data Home Medications ?Medication ?Instructions ?Recorded ?Confirmed amlodipine 10 mg tablet 10 mg PO BEDTIME 02/13/23 03/10/25 atorvastatin 40 mg tablet 40 mg PO BEDTIME 02/13/23 03/10/25 cholecalciferol (vitamin D3) 50 50 mcg PO BEDTIME 02/13/23 03/10/25 mcg (2,000 unit) capsule metoprolol succinate 100 mg 100 mg PO BEDTIME 02/13/23 03/10/25 tablet,extended release 24 hr omeprazole 20 mg capsule,delayed 20 mg PO DAILY@0630 02/13/23 03/10/25 release losartan 100 mg tablet 100 mg PO BEDTIME 10/11/24 03/10/25 aspirin 81 mg tablet,delayed 81 mg PO BEDTIME 10/24/24 03/10/25 release (Adult Aspirin Regimen) gabapentin 100 mg capsule 100 - 300 mg PO BEDTIME 03/10/25 03/10/25 metoprolol succinate 25 mg 25 mg PO BEDTIME 03/10/25 03/10/25 tablet,extended release 24 hr Previous Rx's ?Medication ?Instructions ?Recorded naproxen 500 mg tablet 500 mg PO BID 20 days #40 tabs 02/24/23 oxycodone 5 mg tablet 5 mg PO Q6H PRN severe pain (scale 03/12/25 score 7-10) #12 tabs Allergies Allergy/AdvReac Type Severity Reaction Status Date / Time atenolol (ATENOLOL) Allergy Unknown COUGH Verified 03/25/25 01:44 ADHESIVE BANDAGE Allergy Unknown RASH Uncoded 03/07/25 04:30 Review of Systems Review of Systems: Yes all other systems are reviewed and are negative Constitutional: Constitutional: Denies fatigue and Denies fever(s) Cardiovascular: Cardiovascular: Denies chest pain and Denies dyspnea Respiratory: Respiratory: Denies cough and Denies dyspnea Gastrointestinal: Gastrointestinal: Reports abdominal pain, Reports bloating, Reports nausea and Reports vomiting Endocrine: Endocrine: Denies fatigue PMFSH Past Medical History Attestation statement: The following information was validated with the patient. Medical History CAD (coronary artery disease) Hydronephrosis with urinary obstruction due to renal calculus Postmenopausal Vitamin D deficiency Personal history of nicotine dependence Surgical History History of tubal ligation History of tonsillectomy History of heart artery stent History of cystoscopy History of right cataract surgery History of left breast biopsy Family History Family History Father No problems noted. Mother No problems noted. Sister Breast cancer, Onset Age: 47 Social History Social History Household Members: Family Housing: House Do you presently have visiting nurse or other home services: No Alcohol intake: never Comment: patient refused camera, chair alarm, bed alarm Patient Tobacco Use Status: Former Tobacco user Years Smoked: (onset 16yo, 1ppd x 41yrs, 40pyh - quit 2012) Smoked in Last 30 Days: No e-Cigarette/Vaping Use: Never Used Second Hand Smoke Exposure: No Use of substances other than those prescribed or required for medical reasons: No Advance Directives Date on File: 03/11/25 service: No Current occupational status: employed Current occupation: [employer] Current occupational exposures/hazards: No Cognitive needs: No Hearing needs: No Vision needs: Yes Physical Exam ED Vital Signs: Vital Signs - 24 hr 03/25/25 01:41 03/25/25 02:02 03/25/25 02:19 Temperature 97.6 F Pulse Rate 80 91 92 Respiratory Rate 20 19 Blood Pressure 68/36 L 78/35 L 83/38 L Pulse Oximetry 100 Oxygen Delivery Method Nasal Cannula Oxygen Flow Rate 2 03/25/25 02:22 03/25/25 02:27 03/25/25 03:09 Temperature 98.2 F 99.1 F Pulse Rate 84 98 Respiratory Rate 20 17 Blood Pressure 62/40 L 71/31 L Pulse Oximetry 94 Oxygen Delivery Method Nasal Cannula Oxygen Flow Rate 2 03/25/25 03:34 03/25/25 04:07 03/25/25 04:15 Temperature Pulse Rate 74 68 71 Respiratory Rate Blood Pressure 67/38 L 54/34 L 64/37 L Pulse Oximetry Oxygen Delivery Method Oxygen Flow Rate 03/25/25 04:36 03/25/25 04:45 03/25/25 05:43 Temperature 99.9 F Pulse Rate 69 79 84 Respiratory Rate 15 18 Blood Pressure 53/28 L 103/82 92/69 Pulse Oximetry 96 98 Oxygen Delivery Method Nasal Cannula Room Air Oxygen Flow Rate 2 BMI result Body Mass Index 25.0 Const Other: Awake, lethargic, pale, very ill in appearance Orientation/consciousness: patient oriented x3 Resp Effort & Inspection: normal respiratory effort Cardio Other: Normal peripheral perfusion GI Other: Abdomen is distended, severely tender, moderate to severe involuntary guarding that has generalized, Skin Other: Warm dry no rash Neuro General: patient oriented x3, gait normal, no focal motor deficits and CN's II-XI intact bilaterally Psych Other: Cooperative Course Reevaluation(s) Reevaluation #1: On March 25 at 1:48 a.m., a focused sepsis exam was performed. Blood cultures including lactic were obtained, weight based IV fluid resuscitation was initiated, empiric ceftriaxone given Time: 01:48 Reevaluation #2: Patient has significant bandemia, lactic is 2.6, I am escalating antibiotic therapy to Zosyn Reevaluation #3: Adding additional IV fluid and albumin Additional Reevaluation(s): 534 am.......2nd lactic acid is increased to 3.1, I still do not have the CT read, I have viewed myself, the patient has air-fluid levels, I am concerned for bowel obstruction as I have already indicated, with the increase in lactic acid, I am concerned for dying bowel....adding vanco....we have already escalated her scan with radiology..... I also attempted to view her IVC to see if she requires additional fluid resuscitation, I am unable to visualize secondary to bowel gas Consultations Consultation #1: per Franck....... He reviewed the scan, he feels that the patient has colitis, that she should be admitted to the hospital service with surgery following. I explained that we do not have an ICU bed, that the patient has also been managed for sepsis, that she is currently on pressors. She is currently stable, I did verify with the charge nurse, we will not have an ICU bed any time soon. Therefore, I am going to have to transfer to an outside facility. Time: 05:48 Consultation #2: paging [facility] ICU...... Speaking with 1 of the ICU follows, they will readily accept the patient under Dr. Burch,... The patient will be a direct admit, we are just awaiting bed assignment and transport....calling the patient's family now...... I am speaking with the patient's sister Kaylan Lomeli, she understands of the patient's going to be transferred to the ICU at [facility]. She will reach out to [facility] later this morning Time: 06:16 Medications Administered Generic Name Dose Route Start Last Admin Trade Name Freq PRN Reason Stop Dose Admin Norepinephrine Bitartrate 8 mg in 250 mls @ 0 mls/hr 03/25/25 03:30 03/25/25 04:36 Levophed IVCONT 1 mcg/kg/min .Q0M LIBAN 116.44 mls/hr Protocol Titration Per Protocol Vancomycin HCl 1,500 mg/ 500 mls @ 333.333 mls/hr 03/25/25 05:34 03/25/25 06:05 Sodium Chloride IV 03/25/25 07:03 333.33 mls/hr ONCE ONE Administration Discontinued Medications Generic Name Dose Route Start Last Admin Trade Name Freq PRN Reason Stop Dose Admin Ceftriaxone Sodium 2 gm 03/25/25 01:47 03/25/25 01:58 Ceftriaxone Sodium 2 Gm Vial IVPUSH 03/25/25 01:48 2 gm ONCE ONE Administration Droperidol 1.25 mg 03/25/25 02:12 03/25/25 02:16 Droperidol 5 Mg/2 Ml Vial IVPUSH 03/25/25 02:13 1.25 mg ONCE ONE Administration Sodium Chloride 1,863 mls @ 1,863 mls/hr 03/25/25 01:47 03/25/25 03:08 Ns 30 ml/kg infuse over 1 hr (1863 ml) 03/25/25 02:46 Infused IV Infusion .Q1H STA Piperacillin Sod/Tazobactam 50 mls @ 100 mls/hr 03/25/25 02:22 03/25/25 04:12 Sod 3.375 gm/ Sodium Chloride IV 03/25/25 02:51 Infused ONCE ONE Infusion Albumin Human 100 mls @ 133.333 mls/hr 03/25/25 03:15 03/25/25 05:05 Kedbumin 25 % IV 03/25/25 04:59 133.33 mls/hr Q1H LIBAN Administration Iohexol 85 ml 03/25/25 04:31 03/25/25 04:31 Iohexol 350 Mg/Ml 100 Ml Infus..Btl IV 03/25/25 04:32 85 ml ONCE ONE Administration Ondansetron HCl 8 mg 03/25/25 01:52 03/25/25 01:58 Ondansetron Hcl 4 Mg/2 Ml Vial IVPUSH 03/25/25 01:53 8 mg ONCE ONE Administration Procedures Procedure Narrative Procedure Narrative: Ultrasound-guided IV. Bilateral 18 gauge 1-3/4 inch IVs placed in both upper extremities. Adequate blood return, flushes well, secured with Tegaderm Central Line Placement Right IJ: Time Out Performed: No Patient Placed on Monitor/Pulse Ox: Yes MD Prep: mask, gown and gloves Central Line Prep: Chlorhexidine scrub Local Anesthetic: lidocaine 1% Amount of anesthesia used (mL): 2 Ultrasound Used for Placement: Yes Central Line Lumen Inserted: triple Post Procedure: sutured in place, good blood return, all ports aspirated, flushed, capped and sterile dressing applied Post Procedure X-Ray: tip of catheter in good position and no pneumothorax seen Patient Tolerated Procedure: well Complications: none Medical Decision Making Medical Decision Making MDM Narrative: 69-year-old female with a history of hypertension, hyperlipidemia, known coronary artery disease, kidney stones status post left ureteral stent 2022, GERD, lumbar spinal stenosis, tobacco abuse who presents with the abdominal pain. Patient states she has developed diffuse abdominal pain that has increased in severity throughout the evening. Associated abdominal distention, nausea, vomiting and inability to pass flatus. Denies fever. Problem: Known coronary artery disease, kidney stones History: Per patient I have considered the following differential diagnoses: Bowel obstruction, dissection, sepsis, Plan: The patient arrives hypotensive, the initial concern is for sepsis. Screening labs including blood cultures and lactic acid were obtained, weight based IV fluid initiated immediately with ceftriaxone. The abdomen is objectively distended she is diffusely tender, I am concerned for bowel obstruction given her associated symptoms. We will be obtaining emergent CT scan, I will then performed bedside ultrasound, if I see suspicion for obstruction, we will be reaching out to the surgical team sooner rather than later. Thought about dissection, however the patient has had recent CT scans, the aorta is without aneurysm and is not enlarged in caliber. The patient was also noted to be hypoxic from her baseline, she is on 2 L, she was 90% on room air. I feel that the patient has splinting with inspiration secondary to abdominal pain and distention. I have independently reviewed the following tests: Labs: No leukocytosis, however bandemia noted, not anemic, the patient has a an CESAR of 1.54, her baseline is 0.72, 1st lactic 2.6, the 2nd is 3.2, albumin was low at 3.1, urine not infected Chest x-ray:Impression: 1. Right IJ CVC tip right atrium this can be withdrawn 1-[address] abdomen and pelvis:Impression: 1. Heavy stool burden. Pericolonic inflammatory changes right hemicolon may be infectious/ inflammatory or even possibly ischemic. No definite evidence of free air. Mild colitis left hemicolon. 2. Borderline gallbladder hydrops. No radiopaque gallstones. 3. Stable ancillary findings Lab Data 03/25/25 01:52 03/25/25 01:52 Labs: Lab Results 03/25/25 03/25/25 03/25/25 Range/Units 01:39 01:52 03:22 WBC 7.1 (4.8-10.8) X10*3/uL RBC 3.79 L (4.20-5.50) X10*6/uL Hgb 11.6 L (12.0-16.0) g/dl Hct 35.0 L (37.0-47.0) % MCV 92.3 (80.0-98.0) fL MCH 30.6 (27.0-33.0) pg MCHC 33.1 (31.0-35.0) g/dl RDW 13.1 (11.0-16.0) % Plt Count 315 D (160-400) X10*3/uL MPV 10.0 (9.4-12.3) fL Immature Gran % (Auto) Cancelled Neut % (Auto) Cancelled Lymph % (Auto) Cancelled Ford % (Auto) Cancelled Eos % (Auto) Cancelled Baso % (Auto) Cancelled Lymph # (Auto) Cancelled Ford # (Auto) Cancelled Eos # (Auto) Cancelled Baso # (Auto) Cancelled Abs Immat Gran (auto) Cancelled Absolute Neuts (auto) Cancelled Absolute Nucleated RBC 0.020 H (0.0-0.012) X10*3/uL Nucleated RBC % (auto) 0.3 H (0.0-0.2) /100WBC Neutrophils % (Manual) 49 (45-73) % Band Neutrophils % 28 H (3-5) % Lymphocytes % (Manual) 14 L (20-40) % Monocytes % (Manual) 9 (2-11) % Abs Neuts (Manual) 5.5 (2.0-8.3) X10*3/uL Lymphocytes # (Manual) 1.0 L (1.2-4.9) X10*3/uL Monocytes # (Manual) 0.6 (0.1-1.2) X10*3/uL Toxic Vacuolation PRESENT Platelet Estimate NORMAL (NORMAL) Large Platelets PRESENT Plt Morphology Comment NOTED RBC Morphology NOTED Ovalocytes 1+ (5-14) /OIF Bambi Cells 1+ (0-2) /OIF Sodium 140 (135-145) mmol/L Potassium 4.2 (3.3-5.1) mmol/L Chloride 107 (96-108) mmol/L Carbon Dioxide 19 L (22-29) mmol/L Anion Gap 18 (12-20) BUN 43 H (9-16) mg/dL Creatinine 1.54 H (0.5-1.4) mg/dL Estim Creat Clear Calc 29.8 Estimated GFR 33 POC Glucose 108 (60-115) mg/dL Random Glucose 112 (60-115) mg/dL Lactic Acid 2.6 H* (0.5-2.0) mmol/L Lactic Acid F/U @ 2Hr (0.5-2.0) mmol/L Calcium 9.5 (8.4-10.2) mg/dL Magnesium 2.1 (1.6-2.6) mg/dL Total Bilirubin 0.8 (0.0-1.0) mg/dL AST 29 (5-31) U/L ALT 25 (0-31) U/L Alkaline Phosphatase 330 H (39-117) U/L Total Protein 6.0 L (6.5-8.0) g/dL Albumin 3.1 L (3.5-5.0) g/dL Urine Color Dark Yellow Urine Appearance Cloudy Urine pH 5.0 (5.0-9.0) Ur Specific Bohannon >= 1.030 H (1.005-1.025) Urine Protein 30 (1+) H (Neg-Trace) mg/dL Urine Glucose (UA) Negative (Negative) mg/dL Urine Ketones Trace (Negative) mg/dL Urine Blood Negative (Negative) Urine Nitrite Negative (Negative) Ur Leukocyte Esterase Small (1+) H (Negative) Urine RBC 0-2 (0-2) /HPF Urine WBC 0-5 (0-5) /HPF Ur Squamous Epith Cells 11-20 (0-2) /HPF Calcium Oxalate Crystal Present Urine Bacteria None Seen (None Seen) Hyaline Casts >20 (0-2) /LPF Granular Casts Present Influenza Type A (PCR) (Negative) Influenza Type B (PCR) (Negative) RSV RNA Qual (PCR) (Negative) SARS-CoV-2 RNA (RT-PCR) (Negative) 03/25/25 03/25/25 Range/Units 04:53 05:03 WBC (4.8-10.8) X10*3/uL RBC (4.20-5.50) X10*6/uL Hgb (12.0-16.0) g/dl Hct (37.0-47.0) % MCV (80.0-98.0) fL MCH (27.0-33.0) pg MCHC (31.0-35.0) g/dl RDW (11.0-16.0) % Plt Count (160-400) X10*3/uL MPV (9.4-12.3) fL Immature Gran % (Auto) Neut % (Auto) Lymph % (Auto) Ford % (Auto) Eos % (Auto) Baso % (Auto) Lymph # (Auto) Ford # (Auto) Eos # (Auto) Baso # (Auto) Abs Immat Gran (auto) Absolute Neuts (auto) Absolute Nucleated RBC (0.0-0.012) X10*3/uL Nucleated RBC % (auto) (0.0-0.2) /100WBC Neutrophils % (Manual) (45-73) % Band Neutrophils % (3-5) % Lymphocytes % (Manual) (20-40) % Monocytes % (Manual) (2-11) % Abs Neuts (Manual) (2.0-8.3) X10*3/uL Lymphocytes # (Manual) (1.2-4.9) X10*3/uL Monocytes # (Manual) (0.1-1.2) X10*3/uL Toxic Vacuolation Platelet Estimate (NORMAL) Large Platelets Plt Morphology Comment RBC Morphology Ovalocytes /OIF [place] Cells /OIF Sodium (135-145) mmol/L Potassium (3.3-5.1) mmol/L Chloride (96-108) mmol/L Carbon Dioxide (22-29) mmol/L Anion Gap (12-20) BUN (9-16) mg/dL Creatinine (0.5-1.4) mg/dL Estim Creat Clear Calc Estimated GFR POC Glucose (60-115) mg/dL Random Glucose (60-115) mg/dL Lactic Acid (0.5-2.0) mmol/L Lactic Acid F/U @ 2Hr 3.2 H* (0.5-2.0) mmol/L Calcium (8.4-10.2) mg/dL Magnesium (1.6-2.6) mg/dL Total Bilirubin (0.0-1.0) mg/dL AST (5-31) U/L ALT (0-31) U/L Alkaline Phosphatase (39-117) U/L Total Protein (6.5-8.0) g/dL Albumin (3.5-5.0) g/dL Urine Color Urine Appearance Urine pH (5.0-9.0) Ur Specific Bohannon (1.005-1.025) Urine Protein (Neg-Trace) mg/dL Urine Glucose (UA) (Negative) mg/dL Urine Ketones (Negative) mg/dL Urine Blood (Negative) Urine Nitrite (Negative) Ur Leukocyte Esterase (Negative) Urine RBC (0-2) /HPF Urine WBC (0-5) /HPF Ur Squamous Epith Cells (0-2) /HPF Calcium Oxalate Crystal Urine Bacteria (None Seen) Hyaline Casts (0-2) /LPF Granular Casts Influenza Type A (PCR) NEGATIVE (Negative) Influenza Type B (PCR) NEGATIVE (Negative) RSV RNA Qual (PCR) NEGATIVE (Negative) SARS-CoV-2 RNA (RT-PCR) NEGATIVE (Negative) Critical Care Time Critical Care Time Critical Care Time: Yes Total Critical Care Time: 45 Attestation: I Keya Mohr PA-C have personally performed 30 minutes of critical care time not including lines and procedures: Sepsis, acute abdomen Discharge Plan Discharge Clinical Impression: Acute ischemic colitis, Sepsis Patient Disposition: [facility] Transfer Details: Ischemic colitis, sepsis Prescriptions: No Action naproxen 500 mg tablet 500 mg PO BID 20 Days Qty: 40 0RF atorvastatin 40 mg tablet 40 mg PO BEDTIME metoprolol succinate 100 mg tablet extended release 24 hr 100 mg PO BEDTIME Rx Instructions: Take with metoprolol 25 mg for a total dose -125mg daily amlodipine 10 mg tablet 10 mg PO BEDTIME omeprazole 20 mg capsule,delayed release(DR/EC) 20 mg PO DAILY@0630 cholecalciferol (vitamin D3) 50 mcg (2,000 unit) capsule 50 mcg PO BEDTIME gabapentin 100 mg capsule 100 - 300 mg PO BEDTIME metoprolol succinate 25 mg tablet extended release 24 hr 25 mg PO BEDTIME Rx Instructions: Take with metoprolol 100mg daily-125mg daily oxycodone 5 mg tablet 5 mg PO Q6H PRN (Reason: severe pain (scale score 7-10)) Qty: 12 0RF Rx Instructions: Partial Fill upon patient request. losartan 100 mg tablet 100 mg PO BEDTIME aspirin [Adult Aspirin Regimen] 81 mg tablet,delayed release (DR/EC) 81 mg PO BEDTIME Print Language: Sinhala
[2025-03-25] MEDS: SODIUM CHLORIDE 1863 ML IV (01:58)
[2025-03-25 02:00] LABS: Hematocrit 35.0 % (37.0-47.0); Hemoglobin 11.6 g/dl (12.0-16.0); Mean Corpuscular HGB Conc 33.1 g/dl (31.0-35.0); Mean Corpuscular Hemoglobin 30.6 pg (27.0-33.0); Mean Corpuscular Volume 92.3 fL (80.0-98.0); NRBC Abs Auto 0.020 X10*3/uL (0.0-0.012); NRBC Pct Auto 0.3 /100WBC (0.0-0.2); Platelet Count 315 X10*3/uL (160-400); Red Blood Count 3.79 X10*6/uL (4.20-5.50)
[2025-03-25 02:04] LABS: WBC ABN SCTR FOR CBC 1; White Blood Count 7.1 X10*3/uL (4.8-10.8)
--- NOTE | 2025-03-25 02:09 | PC.NURSE ---
pt changed into hospital attire, placed on bedside monitor, 2 Iv lines placed, labs collect and sent, fluid and medication given per mar, provider into assess pt.
[2025-03-25 02:20] LABS: Neutrophils Percent Manual 49 % (45-73)
[2025-03-25 02:21] LABS: Band Neutrophils Percent 28 % (3-5); Lymphocytes Absolute Manual 1.0 X10*3/uL (1.2-4.9); Lymphocytes Percent Manual 14 % (20-40); Monocytes Absolute Manual 0.6 X10*3/uL (0.1-1.2); Monocytes Percent Manual 9 % (2-11); Neutrophils Absolute Manual 5.5 X10*3/uL (2.0-8.3)
[2025-03-25 02:23] LABS: Alanine Aminotransferase 25 U/L (0-31); Albumin Level 3.1 g/dL (3.5-5.0); Alkaline Phosphatase 330 U/L (39-117); Anion Gap 18 (12-20); Aspartate Amino Transferase 29 U/L (5-31); Blood Urea Nitrogen 43 mg/dL (9-16); Burr Cells 1+ (0-2) /OIF; Calcium 9.5 mg/dL (8.4-10.2); Carbon Dioxide 19 mmol/L (22-29); Chloride 107 mmol/L (96-108); Creatinine Clr Calc Pharmacy 29.8; Estimated Glomerular Filt Rate 33; Magnesium 2.1 mg/dL (1.6-2.6); Ovalocytes 1+ (5-14) /OIF; Potassium 4.2 mmol/L (3.3-5.1); RBC Morphology NOTED; Sodium 140 mmol/L (135-145); Total Protein 6.0 g/dL (6.5-8.0); Toxic Vacuolation PRESENT
[2025-03-25 02:24] LABS: Large Platelet PRESENT
--- NOTE | 2025-03-25 02:34 | PC.NURSE ---
Provider at the bedside attempting ultrasound IV due to Iv not functioning well.
--- NOTE | 2025-03-25 03:17 | PC.NURSE ---
Mohr placed, medicated per nov.
[2025-03-25] MEDS: Albumin Human 25 % 100 ML 133.33 ML IV ×2 (03:20→05:05)
[2025-03-25 03:28] LABS: Appearance Urine Cloudy; Glucose Urine UA Negative (Negative); PH 5.0 (5.0-9.0); Specific Gravity - Urine >= 1.030 (1.005-1.025); UMIC TRIGGER UACC YES
[2025-03-25 03:36] LABS: UACC Culture Trigger YES
[2025-03-25 03:57] LABS: Reflex Lactate? Lactic Acid Added
--- NOTE | 2025-03-25 04:09 | PC.NURSE ---
increase levphed witnessed by ABAD Car
--- NOTE | 2025-03-25 04:17 | PC.NURSE ---
increase levophed with ABAD Saldivar
[2025-03-25] MEDS: iohexoL 350 MG/ML 100 ML INFUS..BTL 85 ML IV (04:31)
--- NOTE | 2025-03-25 04:47 | PC.NURSE ---
titrated levophed base on available line, Central line placed and confirm by ERNESTINE Herrera. pt blood pressure improved.
[2025-03-25 05:12] LABS: Glucose, Whole Blood 108 mg/dL (60-115)
[2025-03-25 05:17] LABS: ~Lactic Acid-LAB USE ONLY 3.2 mmol/L (0.5-2.0)
--- NOTE | 2025-03-25 05:23 | PC.NURSE ---
blood pressure had improved.
[2025-03-25 05:44] LABS: Resp Syncy Virus RNA Qual PCR NEGATIVE (Negative); SARS COV2 PCR INHOUSE NEGATIVE (Negative)
--- OUTSIDE RECORDS SUMMARY | 2025-03-25 06:49 | XMS_ITS | Clinical Summary ---
Author Organization [facility] [address] [place] [address] [place] [id number] Phone Care Team Providers Care Spiral Spring Winder Name Role Phone Katelynn Young MD Primary Care Provider [phone] Allergies Active Allergy Reactions Criticality Noted Date Comments Atenolol 08/08/2016 cough Medications aspirin 81 mg EC tablet Take 1 [...] BY MOUTH DAILY 30 tablet 5 Active naproxen (NAPROSYN) 500 mg tablet TAKE 1 TABLET BY MOUTH TWICE DAILY WITH MEALS 60 tablet 5 Active cholecalcifero l (VITAMIN D-3) 50 mcg (2,000 unit) capsule TAKE 1 CAPSULE BY MOUTH EVERY DAY 30 capsule 5 Active naproxen (NAPROSYN) 500 mg tablet TAKE 1 TABLET BY MOUTH TWICE DAILY WITH MEALS 180 tablet 1 4 03/10/20 25 Discontinued cholecalcifero l (VITAMIN D-3) 50 mcg (2,000 unit) capsule TAKE 1 CAPSULE BY MOUTH EVERY DAY 90 capsule 1 4 03/10/20 25 Discontinued Active Problems Problem Noted Date [...] 06/07/2013,06/08/2012,06/10/2011,2006 Influenza, Unspecified 07/20/2022,07/06/2014 PPD Test 06/09/2001,06/07/2001 [employer] SARS-CoV-2 COVID-19, mRNA, LNP-S, preservative free 01/26/2021,12/30/2020 [...] 12:30 PM EDT Appointment Radiology Department - [address] [id number] Health Maintenance Due Date Last Done Comments [...] Results * Stool Based Tests (FOBT/FIT) (07/22/2024) [facility] Colorectal Cancer Screening: Stool Based Tests no interpretation , abstracted [facility] Provider HEALTH MAINTENANCE Final Result * Annual BMP Blood Test (02/09/2024) [facility] Annual BMP Blood Test abstracted [facility] Provider [facility] Final Result * (ABNORMAL) Lipid panel (02/09/2024) [facility] LDL/HDL Ratio 3 0 - 4 Triglycerides 152(A) 0 - 150 mg/dL Cholesterol 173 0 - 200 mg/dL HDL 70 >=40 mg/dL LDL Cholesterol 73 0 - 100 mg/dL Blood Venous blood specimen / Unknown [facility] Provider LAB BLOOD ORDERABLES Lucrecia l Result [...] groups of calcifications of the left breast. The calcifications circled on the MLO view are located in the upper breast at about 9 cm from the nipple and in the lower breast at about 6 cm from the nipple. Two groups of calcifications were circled in the central aspect of the breast on the CC view at slightly lateral at 7 cm from the nipple and slightly medial at 6 cm from the nipple. Study: Unilateral left diagnostic mammography with tomosynthesis and CAD. Technique: Unilateral left digital diagnostic mammography is obtained and read in conjunction with computer aided detection. Tomosynthesis as well as 2D C-View imaging were obtained. Spot magnified compression views were also obtained. Comparison: August 26, 2023. Breast composition: There are scattered areas of fibroglandular density. Left breast: The previously circled groups of calcifications are identified on the ML 90 degrees in the upper breast at 8 cm from the nipple and lower breast at 6 cm from the nipple. The previously circled calcifications have amorphous morphology on the multiple spot magnified compression views. IMPRESSION: Impression: Left breast: Multiple groups of amorphous calcifications of the left breast middle depth. Probably benign. A 6 months follow-up mammogram is recommended with spot magnified compression views. Alternative options were also discussed with the patient. Patient is going to think about scheduling the [...] or Most Recently Relevant to Health Maintenance Insurance MEDICARE Care Teams Spiral Spring Winder Relationship Specialty Start Date End Date Katelynn Young MD [address] [place] [id number] PCP - General 07/25/1999
[2025-03-25 06:56] LABS: Reflex Lactate? 2 Y
--- NOTE | 2025-03-25 07:03 | PC.NURSE ---
reviewed pump and rate with ABAD Russell, report given to ICU Andie.
--- NOTE | 2025-03-25 07:13 | PC.NURSE ---
This RN assumed care of patient @ 0700. Bedside report given by Patricia MELGOZA. Patient alert and oriented. Answering questions/following commands appropriately but seemingly weak. Patient currently infusing norepinephrine @ 1 mcg/kg/min through central line on right side of neck. Last BP 102/60, patient is currently on 2L via NC - no apparent respiratory distress noted. No sob/wob noted. Respirations even/unlabored. 94% on 2L via NC - RR 20. 1.5g of vancomycin also infusing through central line. Additional tegaderm applied to central line for securement - access remains patent/intact. Patient also has additional 20GIV in LAC - patent/intact. Lactic elevated, repeat lactic drawn from central line and sent to lab per provider order. Patient has a 16Fr jameson catheter in place - draining dark yellow urine. Report called to [facility] ICU by Patricia MELGOZA. Patient waiting ALS transfer at this time.
--- NOTE | 2025-03-25 07:30 | PC.NURSE ---
Patient picked up by Karen JEAN-BAPTISTE at this time. Patient [facility] to [facility] ICU.
[2025-03-25 07:34] LABS: ~Lactic Acid-LAB USE ONLY 3.5 mmol/L (0.5-2.0)
[2025-03-27 00:04] VITALS: BP 97/51; PULSE 90
== END 2025-03-25 07:33 | disposition short-term general hospital (02) ==
PROVIDERS: Physician Assistant Medical; Emergency Provider Emergency Medicine
DX: K55.039 Acute (reversible) ischemia of large intestine, extent unspecified (principal); A41.89 Other specified sepsis; R09.02 Hypoxemia; R11.2 Nausea with vomiting, unspecified; I10 Essential (primary) hypertension; E78.5 Hyperlipidemia, unspecified; Z87.891 Personal history of nicotine dependence; Z03.818 Encounter for observation for suspected exposure to other biological agents ruled out; Z79.82 Long term (current) use of aspirin; Z79.899 Other long term (current) drug therapy
CPT/HCPCS: 36415; 36556; 71045; 74177; 80053; 81001; 82947; 83605; 83735; 85007; 85025; 85027; 87040; 87086; 87637; 93005; 96361; 96365; 96368; 96375; 99285; 99291; J0696; J1790; J2405; J2543; J3371; J3374; P9047; Q9967

== ENCOUNTER → 2025-03-25 01:40 | Outpatient (BNV) | payer OTHER, SELFPAY | PROVIDERS: Emergency Provider Emergency Medicine; Visit Provider Internal Medicine Cardiovascular Disease | DX: R94.31 Abnormal electrocardiogram [ECG] [EKG] (principal); R10.9 Unspecified abdominal pain | CPT/HCPCS: 93010 ==

== ENCOUNTER → 2025-03-25 01:48 | Outpatient (BNV) | payer OTHER, SELFPAY | PROVIDERS: Emergency Provider Emergency Medicine; Visit Provider Radiology Diagnostic Radiology | DX: K56.41 Fecal impaction (principal); Z45.2 Encounter for adjustment and management of vascular access device | CPT/HCPCS: 71045; 74177 ==

== ENCOUNTER 2025-04-11 20:36 | Emergency (ER) | payer OTHER, SELFPAY ==
--- NOTE | 2025-04-11 | ECG_ITS ---
Test Reason : lightheaded Blood Pressure : */* mmHG Vent. Rate : 110 BPM Atrial Rate : 110 BPM P-R Int : 152 ms QRS Dur : 76 ms QT Int : 346 ms P-R-T Axes : 29 11 12 degrees QTcB Int : 468 ms Sinus tachycardia Inferior infarct (cited on or before 25-Mar-2025) Cannot rule out Anterior infarct , age undetermined Abnormal ECG When compared with ECG of 25-Mar-2025 01:44, Minimal criteria for Anterior infarct are now Present Referred By: Generic ED Physician Electronically Signed By: MARISEL HENDERSON
--- NOTE | ~2025-04-11 | CT_ITS ---
CLINICAL HISTORY: Weakness, dizziness, total colectomy 7 1, R O PE CT angiography chest with contrast. 3D Postprocessing. Comparison: CT/SR - CT LUNG SCREENING - 12/13/24 09:38 EDT Findings: There is no pulmonary embolism. Heart size is normal. There is no pericardial effusion. Thoracic aorta is normal in diameter without dissection. There is coronary artery calcification. There are no enlarged lymph nodes. There is minimal atelectasis. Lungs appear otherwise clear. Trachea and central bronchi are widely patent. There is no acute fracture or suspicious lytic or sclerotic lesion. IMPRESSION: No pulmonary embolism. This document has been electronically signed by: Artemio Lovell MD on 04/12/2025 03:45:35
--- NOTE | ~2025-04-11 | CT_ITS ---
CLINICAL HISTORY: Total colectomy 03 25 2025, nausea, R O bowel obstru CT abdomen and pelvis with contrast Comparison: CT/SR - CT ABDOMEN PELVIS W IV CON - 03/25/25 03:43 EDT Findings: The liver, gallbladder, pancreas, spleen, and adrenal glands are unremarkable. There is a small left renal cyst. Right kidney is unremarkable. Patient is status post subtotal colectomy. There is an ileostomy in the right lower quadrant. There is mesenteric edema/fat stranding in the previous regions of the colon likely postoperative. There is no bowel obstruction. There is no abscess. There is no free air. The aorta is diffusely atherosclerotic, but normal in diameter. There are no enlarged lymph nodes. Uterus and adnexa are unremarkable. There is mild to moderate distention of the bladder. There is a small amount of gas within the bladder. There are degenerative changes throughout the lumbar spine. There are stable subacute appearing bilateral sacral insufficiency fractures. There is no acute fracture or suspicious lytic or sclerotic lesion. IMPRESSION: 1. Postoperative changes of recent subtotal colectomy with right lower quadrant ileostomy without evidence of complication. 2. Small amount of gas in the bladder presumably related to recent catheterization for the surgery. Gas producing urinary tract infection is not excluded. 3. Stable subacute appearing bilateral sacral insufficiency fractures. This document has been electronically signed by: Artemio Lovell MD on 04/12/2025 03:49:12
[2025-04-11 20:51] VITALS: BP 142/78; PULSE 105; O2SAT 96
[2025-04-11 21:07] VITALS: BP 147/70; PULSE 124; RESP 18; TEMP 36.6; O2SAT 98; BMI 22.3
--- OUTSIDE RECORDS SUMMARY | 2025-04-11 21:34 | XMS_ITS | Clinical Summary ---
Author Organization [facility] Address [address] [address] Phone Care Team Providers Care Block Greaser Name Role Phone Katelynn Young MD Primary Care Provider [phone] Allergies Active Allergy Reactions Criticality Noted Date Comments Atenolol Unknown 10/10/2016 Medications aspirin 81 MG EC tablet 1 tablet Active atorvastatin (LIPITOR) 40 MG tablet 1 tablet 09/14/2015 Active amLODIPine (NORVASC) 10 MG tablet Take 10 mg by mouth daily. Active omeprazole (PRILOSEC) 20 mg TbEC Take 20 mg by mouth daily before breakfast. Active naproxen (EC NAPROSYN) 500 MG EC tablet Take 500 mg by mouth 2 (two) times a day with meals. Active metoprolol succinate (TOPROL-XL) 50 MG 24 hr tabletIndicatio ns:Coronary artery disease involving cowlitz coronary artery of cowlitz heart without angina pectoris Take 2 tablets (100 mg total) by mouth daily. 90 tablet 3 02/05/2021 Active cholecalciferol (VITAMIN D3) 2,000 unit capsule Take by mouth daily. Active losartan (COZAAR) 100 MG tablet Take 1 tablet by mouth daily. 10/17/2024 Active metoprolol succinate (TOPROL-XL) 25 MG 24 hr tablet Take 25 mg by mouth daily. 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 This has never recurred. We will continue to optimize her cardiovascular risk factors. She does not smoke. Her BP is under good control. LDL goal < 70 mg/dL on atorvastatin. Assessment & Plan (02/05/2021 4:38 PM EDT): Continues to be asymptomatic at this time. She is on amlodipine 10 mg daily, aspirin 81 mg daily, atorvastatin 40 mg daily, losartan 100 mg daily, metoprolol 50 mg daily which will increase to 100 mg daily for elevated blood pressure. She will remain on these medications. Assessment & Plan (11/17/2017 12:42 PM EST): Stable without evidence of angina. Assessment & Plan (10/13/2017 3:53 PM EST): She has a history of 2 stents to RCA in 2009. She is done well since then. She should remain on aspirin lifelong we will continue to optimize her cardiac risk factors. Essential hypertension 10/13/2017 Assessment & Plan (07/03/2023 3:56 PM EDT): BP elevated in office today at 140/80, tells me that she is in a lot of pain today (back pain d/t spinal stenosis) and her systolic is consistently in the 120 range at home. Continue above medications at current doses. Assessment & Plan (02/05/2021 4:39 PM EDT): Her blood pressure is mildly elevated today at 142/80. She is on losartan 100 mg daily, amlodipine 10 mg daily, we will increase her metoprolol from 50 mg daily to 100 mg daily to see if this helps with her blood pressure. It is likely that her chronic back pain is playing a role in her blood pressure issue. Assessment & Plan (11/17/2017 12:42 PM EST): Her blood pressure is slightly better controlled today with medication changes. She was under a great deal of stress which could certainly be driving her blood pressure. I have asked her to keep a blood pressure log so we could get a better idea of her BP trends. I offered her another appointment however she is scheduled to see her PCP in a month and asked to follow up there. Assessment & Plan (10/13/2017 3:54 PM EST): Her blood pressure still moderately elevated on the losartan and amlodipine. I'm going to add Toprol succinate 50 mg daily. I would like for her to come back in a month for a repeat blood pressure check. Hyperlipidemia 10/13/2017 Assessment & Plan (07/03/2023 3:56 PM EDT): PCP recently ar lipids. Will request these. Continue atorvastatin with LDL goal < 70 mg/dL. Assessment & Plan (02/05/2021 4:39 PM EDT): Continue atorvastatin 40 mg daily Assessment & Plan (11/17/2017 12:42 PM EST): Target LDL <70 per ATP III guidelines. Assessment & Plan (10/13/2017 3:53 PM EST): Continue atorvastatin. Encounters Date Type Department Care Team Description 03/17/2025 8:27 AM EDT - 03/17/2025 11:59 PM EDT Hospital Encounter [facility] [address] [place] [address] Rashmi Díaz MD Discharge Disposition: Home or Self Care 03/14/2025 8:05 AM EDT - 03/14/2025 11:59 PM EDT Hospital Encounter [facility] [address] [place] [address] Rashmi Díaz MD Discharge Disposition: Home or Self Care 03/14/2025 Transcribe Orders [facility] Specimen Processing [address] [place] [address] Rashmi Díaz MD Spinal stenosis, unspecified spinal region (Primary Dx) from Last 3 Months Family History Medical History Relation Comments CV disease Father 2 Relation Status Comments Father 1 Father 2 Social History Tobacco Use Types Packs/Day Years Used Date Smoking Tobacco: Former Smokeless Tobacco: Never Tobacco Cessation:Counseling Given: Not Answered Alcohol Use Standard Drinks/Week Comments No 0 (1 standard drink = 0.6 oz pur e alcohol) Education Answer Date Recorded Are you interested in more education? Not on tim e 01/20/2023 Are you concerned about learning? Not on file 01/20/2023 No 01/20/2023 No 01/20/2023 Digital Access Answer Date Recorded No 02/18/2023 No 02/18/2023 Reliable internet access at home? Not on file 02/18/2023 Device with a working camera? Not on file Comments Unknown Sex and Gender Information Value Date Recorded Sex Assigned at Not on file Legal Sex Female 10:35 PM EDT Gender Identity Not on file Sexual Orientation Not on file Last Filed Vital Signs Vital Sign Reading Time Taken Comments Blood Pressure 152/84 01/03/2025 2:52 PM EDT Pulse 70 01/03/2025 2:52 PM EDT Temperature - - Respiratory Rate - - Oxygen Saturation 98% 01/03/2025 2:52 PM EDT Inhaled Oxygen Concentration - - Weight 62.6 kg (138 lb) 01/03/2025 2:52 PM EDT Height 157.5 cm (5' 2 ) 01/03/2025 2:52 PM EDT Body Mass Index 25.24 01/03/2025 2:52 PM EDT Plan of Treatment Upcoming Encounters Date Type Department Care Team (Late st Contact Info) Description 12/29/2025 3:00 PM EDT Office Visit [facility] [address] [place] [address] 3rd [facility], [address] [place] [id number] Daron Johnson MD [address] [place] [address], [address] [address] [email or web address] Health Maintenance Due Date Last Done Comments DEPRESSION SCREENING 1967 SMOKING Hx and SMOKELESS TOBACCO SCREENING 1968 HEPATITIS C SCREENING 1973 MAMMOGRAM 1995 COLOGUARD 2000 COLONOSCOPY 2000 COLORECTAL CANCER SCREENING 2000 FIT TEST 2000 FOBT 2000 SIGMOIDOSCOPY 2000 VIRTUAL COLONOSCOPY 2000 PNEUMOCOCCAL VACCINES (50+ years) (1 of 1 - PCV) 2005 ZOSTER VACCINES (1 of 2) 2005 OSTEOPOROSIS SCREENING INITI AL (ONE-TIME) 2020 Adult Td,Tdap Booster 06/10/2021 06/10/2011 COVID-19 VACCINE (3 - 2023-2 5 season) 2024 01/26/2021, 12/30/2020 BLOOD PRESSURE 07/05/2025 01/03/2025 CREATININE LEVEL 03/17/2026 03/17/2025, 03/14/2025 POTASSIUM LEVEL 03/17/2026 03/17/2025, 03/14/2025 SCREENING FOR DIABETES 03/17/2028 03/17/2025 RSV VACCINE (1 - 1-dose 75+ series) 2030 HEPATITIS A VACCINES Aged Out No long er eligible based on patient's age to complete this topic HIB VACCINES Aged Out No longer eligi ble based on patient's age to complete this topic MENINGOCOCCAL VACCINES (ACWY) Aged Out No longer eligible based on patient's age to complete this topic MENINGOCOCCAL VACCINES (B) Aged Out N o longer eligible based on patient's age to complete this topic Medical Devices Not on file Procedures Procedure Name Priority Date/Time Associated Diagnosis Comments BASIC METABOLIC PANEL Routine 03/17/2025 6:15 AM EDT Spinal stenosis, lumbar region, without neurogenic claudication CBC Routine 03/17/2025 6:15 AM EDT Spinal stenosis, lumbar region, without neurogenic claudication COMPREHENSIVE METABOLIC PANEL Routine 03/14/2025 7:00 AM EDT Essential hypertension Coronary artery disease involving cowlitz coronary artery of cowlitz heart without angina pectoris Pure hypercholesterolemia CBC Routine 03/14/2025 7:00 AM EDT Spinal stenosis, unspecified spinal region from Last 3 Months Results * (ABNORMAL) CBC (03/17/2025 6:15 AM EDT) Only the most recent of2 resultswithin the time period is included. WBC 15.21(H) 4.00 - 11.00 K/uL [facility] RBC 3.93(L) 4.00 - 5.20 M/uL [facility] HGB 11.9(L) 12.0 - 16.0 g/dL [facility] HCT 36.4 36.0 - 46.0 % [facility] PLT 332 150 - 450 K/uL [facility] MCV 92.6 80.0 - 100.0 fL [facility] MCH 30.3 27.0 - 31.0 pg [facility] MCHC 32.7 32.0 - 36.0 g/dL [facility] RDW 12.2 11.5 - 14.5 % [facility] MPV 10.1 8.4 - 12.0 fL [facility] NRBC 0.00 0.00 /100 WBCs [facility] ABSOLUTE NRBC 0.00 0.00 K/uL [facility] 03/17/2025 6:15 AM EDT 03/17/2025 8:45 AM EDT us Rashmi Díaz MD LAB BLOOD ORDERABLES Final Res ult [address] [address] * (ABNORMAL) Basic metabolic panel (03/17/2025 6:15 AM EDT) SODIUM 134 133 - 146 mmol/L [facility] CHLORIDE 99 96 - 108 mmol/L [facility] POTASSIUM 4.3 3.3 - 5.1 mmol/L [facility] CO2 23 21 - 35 mmol/L [facility] BUN 24(H) 6 - 19 mg/dL [facility] CREATININE 0.60 0.5 - 1.5 mg/dL [facility] GLUCOSE 86 70 - 99 mg/dL [facility] CALCIUM 9.3 8.4 - 10.3 mg/dL [facility] EGFR 97 >59 mL/min/1.7 3m2 [facility] Comment:Estimated glomerular filtration rate calculated using the CKD-EPI refit equation. ANION GAP 16 10 - 20 mmol/L [facility] 03/17/2025 6:15 AM EDT 03/17/2025 8:45 AM EDT us Rashmi Díaz MD LAB BLOOD ORDERABLES Final Res ult [address] [address] * (ABNORMAL) Comprehensive metabolic panel (03/14/2025 7:00 AM EDT) SODIUM 136 133 - 146 mmol/L [facility] POTASSIUM 4.6 3.3 - 5.1 mmol/L [facility] CHLORIDE 102 96 - 108 mmol/L [facility] CO2 24 21 - 35 mmol/L [facility] BUN 29(H) 6 - 19 mg/dL [facility] CREATININE 0.70 0.5 - 1.5 mg/dL [facility] GLUCOSE 96 70 - 99 mg/dL [facility] ALBUMIN 3.5(L) 3.9 - 4.8 g/dL [facility] TOTAL PROTEIN 6.0(L) 6.5 - 8.0 g/dL [facility] CALCIUM 9.5 8.4 - 10.3 mg/dL [facility] ALKALINE PHOSPHATASE 174(H) 39 - 117 U/L [facility] TOTAL BILIRUBIN 0.3 0.0 - 1.2 mg/dL [facility] AST 12 0 - 37 U/L [facility] ALT 11 0 - 40 U/L [facility] GLOBULIN 2.5 1 - 4.8 g/dL [facility] EGFR 94 >59 mL/min/1.7 3m2 [facility] Comment:Estimated glomerular filtration rate calculated using the CKD-EPI refit equation. ANION GAP 15 10 - 20 mmol/L [facility] Blood 03/14/2025 7:00 AM EDT 03/14/2025 9:45 AM EDT us Daron Johnson MD LAB BLOOD ORDERABLES Final Result Performing Organization Address City/[facility]/ZIP Co de Phone Number [address] [address] from Last 3 Months Insurance [facility] PPO [facility] PPO [facility] [place] [address] [place] [address] [place] [address] [place] [address] PPO PPO Care Teams Block Greaser Relationship Specialty Start Date End Date Katelynn Young MD [address] [place] [address] PCP - General 07/13/17 Additional Source Comments The information contained in this document represents components of the legal health record. It is not the complete legal health record.[facility]
[2025-04-11 22:02] LABS: MANUAL DIFF FLAG NO
[2025-04-11 22:13] LABS: Hematocrit 30.2 % (37.0-47.0); Hemoglobin 9.9 g/dl (12.0-16.0); Imm Gran Abs Auto 0.03 X10*3/uL (0.00-0.03); Imm Gran Pct Auto 0.4 % (0.0-0.4); Lymphocytes Absolute Auto 1.2 X10*3/uL (1.2-4.9); Mean Corpuscular HGB Conc 32.8 g/dl (31.0-35.0); Mean Corpuscular Hemoglobin 29.8 pg (27.0-33.0); Mean Corpuscular Volume 91.0 fL (80.0-98.0); NRBC Abs Auto 0.000 X10*3/uL (0.0-0.012); NRBC Pct Auto 0.0 /100WBC (0.0-0.2); Platelet Count 683 X10*3/uL (160-400); Red Blood Count 3.32 X10*6/uL (4.20-5.50); White Blood Count 7.3 X10*3/uL (4.8-10.8)
[2025-04-11 22:16] LABS: Alanine Aminotransferase 15 U/L (0-31); Albumin Level 3.8 g/dL (3.5-5.0); Alkaline Phosphatase 186 U/L (39-117); Anion Gap 13 (12-20); Aspartate Amino Transferase 20 U/L (5-31); Blood Urea Nitrogen 36 mg/dL (9-16); Calcium 9.7 mg/dL (8.4-10.2); Carbon Dioxide 21 mmol/L (22-29); Chloride 108 mmol/L (96-108); Creatinine Clr Calc Pharmacy 48.8; Estimated Glomerular Filt Rate > 60; Potassium 3.9 mmol/L (3.3-5.1); Sodium 138 mmol/L (135-145); Total Protein 7.2 g/dL (6.5-8.0)
[2025-04-11 22:18] VITALS: BP 135/70; PULSE 110; RESP 18; O2SAT 98
[2025-04-11 22:23] LABS: Troponin-I High Sensitivity 12.4 ng/L (<3.5-17.0)
--- NOTE | 2025-04-11 22:30 | ED_ITS ---
HPI - General Adult General Chief complaint: General Medical Stated complaint: weakness nausea Time Seen by Provider: 04/11/25 22:30 History of Present Illness HPI narrative: 69-year-old female with a history of hypertension, hyperlipidemia, known coronary artery disease, kidney stones status post left ureteral stent 2022, GERD, lumbar spinal stenosis, tobacco abuse was seen in the emergency department on 03/25/2025 and diagnosed with a ischemic bowel with possible perforation/peritonitis. She was sent to [facility] and diagnosed with toxiccolitis with peritonitis , she had a total colectomy with ileostomy. She refused short-term rehab and she was discharged to home on 04/04/2025 (7 days prior to evaluation). Since being home the patient states that she has had no appetite. She states that she has a metallic taste in her mouth in food is not appealing. She states that she has had very poor fluid intake as well. She states she was feeling extremely weak and dizzy. That has a anytime she tried to sit up she would feel lightheaded as if she was going to pass out. He denied nausea or vomiting. Patient states she has a good output in her ileostomy bag and her sister is change the bag 3 times a day. Denied abdominal pain. She denied fever, chills, chest pain, shortness of breath, frequency, urgency or dysuria. Related Data Home Medications ?Medication ?Instructions ?Recorded ?Confirmed amlodipine 10 mg tablet 10 mg PO BEDTIME 02/13/23 atorvastatin 40 mg tablet 40 mg PO BEDTIME 02/13/23 cholecalciferol (vitamin D3) 50 50 mcg PO BEDTIME 01/2403/10/25 mcg (2,000 unit) capsule metoprolol succinate 100 mg 100 mg PO BEDTIME 02/13/23 03/10/25 tablet,extended release 24 hr omeprazole 20 mg capsule,delayed 20 mg PO DAILY@0630 0 02/13/23 03/10/25 release losartan 100 mg tablet 100 mg PO BEDTIME 10/11/24 0 03/10/25 aspirin 81 mg tablet,delayed 81 mg PO BEDTIME 10/24/24 03/10/25 release (Adult Aspirin Regimen) gabapentin 100 mg capsule 100 - 300 mg PO BEDTIME 02/2303/10/25 metoprolol succinate 25 mg 25 mg PO BEDTIME 03/10/25 0 03/10/25 tablet,extended release 24 hr Previous Rx's ?Medication ?Instructions ?Recorded naproxen 500 mg tablet 500 mg PO BID 20 days #40 ta bs 02/24/23 oxycodone 5 mg tablet 5 mg PO Q6H PRN severe pain (scale 03/12/25 score 7-10) #12 tabs meclizine 25 mg tablet 25 mg PO TID PRN dizziness # 20 tabs 04/12/25 Allergies Allergy/AdvReac Type Severity Reaction Status Date / Time atenolol (ATENOLOL) Allergy Unknown COUGH Verified 04/11/25 21:08 oxycodone Allergy Unknown Unknown Verified 04/11/25 21:08 ADHESIVE BANDAGE Allergy Unknown RASH Uncoded 04/11/25 21:08 Review of Systems 2 Review of Systems: Yes all other systems are reviewed and are negative [facility] Past Medical History Medical History CAD (coronary artery disease) Hydronephrosis with urinary obstruction due to renal calculus Postmenopausal Vitamin D deficiency Personal history of nicotine dependence Surgical History History of tubal ligation History of tonsillectomy History of heart artery stent History of cystoscopy History of right cataract surgery History of left breast biopsy Family History Family History Father No problems noted. Mother No problems noted. Sister Breast cancer, Onset Age: 47 Social History Social History Household Members: Family Housing: House Do you presently have visiting nurse or other home services: No Alcohol intake: never Comment: patient refused camera, chair alarm, bed alarm Patient Tobacco Use Status: Former Tobacco user Years Smoked: (onset 16yo, 1ppd x 41yrs, 40pyh - quit 2012) Smoked in Last 30 Days: No e-Cigarette/Vaping Use: Never Used Second Hand Smoke Exposure: No Use of substances other than those prescribed or required for medical reasons: No Advance Directives: Yes Advance Directives on File: Yes Advance Directives Date on File: 03/11/25 service: No Current occupational status: employed Current occupation: [employer] Current occupational exposures/hazards: No Cognitive needs: No Hearing needs: No Vision needs: Yes Physical Exam ED Vital Signs: Vital Signs - 24 hr 04/11/25 21:07 04/11/25 22:18 04/11/25 22:55 Temperature 97.9 F Pulse Rate 124 H 110 H 112 H Respiratory Rate 18 18 Blood Pressure 147/70 H 135/70 136/65 Pulse Oximetry 98 98 Oxygen Delivery Method Room Air Room Air 04/11/25 22:56 04/12/25 02:15 04/12/25 02:20 Temperature 97.9 F Pulse Rate 118 H 107 H Respiratory Rate 16 Blood Pressure 139/73 140/64 H 156/69 H Pulse Oximetry 97 Oxygen Delivery Method Room Air 04/12/25 03:37 Temperature 98.5 F Pulse Rate 113 H Respiratory Rate 18 Blood Pressure 154/66 H Pulse Oximetry 97 Oxygen Delivery Method Room Air BMI result Body Mass Index 22.3 Orthostatic vital signs: Lying: BP 136/65, heart rate 112, asymmetric Sitting: BP 139/73, heart rate 118, complained of dizziness and lightheadedness Standing: Patient was too dizzy and lightheaded stand Exam: General: Awake, alert in no distress Head: Normocephalic, atraumatic EENT: PERRL, Lids normal, sclera normal, conjunctiva normal, nose normal , ears normal, mouth dry mucous membranes with no erythema or exudate Neck: Supple, no adenopathy Lung: breath sounds symmetric, no wheezing, rales or rhonchi Chest: symmetric movement, nontender Heart: regular rate and rhythm, normal S1, S2 no murmurs or rubs Abdomen: soft, non-tender, nondistended, normoactive bowel sounds, Steri-Strips over surgical wound, no erythema or increased warmth, right ileostomy with nonbloody stool in the bag Back: no vertebral tenderness, no CVAT Extremities: no deformities, moves all extremities symmetrically Neuro: Awake, alert, oriented, normal speech, cranial nerves intact, moves all extremities symmetrically Psych: Pleasant, cooperative Medications Administered Discontinued Medications Generic Name Dose Route Start Last Admin Trade Name Freq PRN Reason Stop Dose Admin Diphenhydramine HCl 25 mg 04/12/25 01:51 04/12/25 02:06 Diphenhydramine Hcl 50 Mg/Ml Vial IVPUSH 04/12/25 01:52 25 mg ONCE ONE Administration Famotidine 20 mg 04/11/25 22:48 04/11/25 23:17 Famotidine/Pf 20 Mg/2 Ml Vial IVPUSH 04/11/25 22:49 20 mg ONCE ONE Administration Sodium Chloride 1,000 mls @ 999 mls/hr 04/11/25 22:48 04/12/25 01:30 Ns IV 04/11/25 23:48 Infused .Q1H1M STA Infusion Sodium Chloride 1,000 mls @ 999 mls/hr 04/12/25 01:51 04/12/25 04:02 Ns IV 04/12/25 02:51 Infused .Q1H1M STA Infusion Iohexol 85 ml 04/12/25 02:32 04/12/25 02:32 Iohexol 350 Mg/Ml 100 Ml Infus..Btl IV 04/12/25 02:33 85 ml ONCE ONE Administration Meclizine HCl 25 mg 04/12/25 04:05 04/12/25 04:50 Meclizine Hcl 25 Mg Tablet PO 04/12/25 04:06 25 mg ONCE ONE Administration Metoclopramide HCl 10 mg 04/12/25 01:51 04/12/25 02:06 Metoclopramide Hcl 10 Mg/2 Ml Vial IVPUSH 04/12/25 01:52 10 mg ONCE STA Administration Ondansetron HCl 4 mg 04/11/25 22:48 04/11/25 23:17 Ondansetron Hcl 4 Mg/2 Ml Vial IVPUSH 04/11/25 22:49 4 mg ONCE ONE Administration Ondansetron HCl 4 mg 04/12/25 05:16 04/12/25 05:20 Ondansetron Hcl 4 Mg/2 Ml Vial IVPUSH 04/12/25 05:17 4 mg ONCE ONE Administration Medical Decision Making Medical Decision Making MDM Narrative: 69-year-old female with a history of hypertension, hyperlipidemia, known coronary artery disease, kidney stones status post left ureteral stent 2022, GERD, lumbar spinal stenosis, tobacco abuse was seen in the emergency department on 03/25/2025 and diagnosed with a ischemic bowel with possible perforation/peritonitis. She was sent to [facility] and diagnosed with toxiccolitis with peritonitis , she had a total colectomy with ileostomy. She refused short-term rehab and she was discharged to home on 04/04/2025 (7 days prior to evaluation).Since being home the patient states that she has had no appetite. She states that she has a metallic taste in her mouth in food is not appealing. She states that she has had very poor fluid intake as well. She states she was feeling extremely weak and dizzy. That has a anytime she tried to sit up she would feel lightheaded as if she was going to pass out. He denied nausea or vomiting. Patient states she has a good output in her ileostomy bag and her sister is change the bag 3 times a day. Denied abdominal pain. She denied fever, chills, chest pain, shortness of breath, frequency, urgency or dysuria. Patient was symptomatic while testing orthostatic vital signs and was unable to stand. Abdomen revealed no tenderness, the patient does have a right sided ileostomy with nonbloody stool in the bag. Differential diagnosis: ?Includes but is not limited to volume depletion, dehydration, anorexia, malnutrition, anemia, electrolyte abnormalities Course: 01:51 My independent interpretation patient's laboratory evaluation is as follows: WBC was normal 7300. Normocytic anemia with an H&H of 9.9 and 30-similar anemia in the past. Elevated BUN 36 with a normal creatinine. Elevated BUN is chronic. Alk-phos elevated 186. Patient was initially treated with normal saline IV x1 L and Zofran 4 mg IV with only minimal improvement of her symptoms. Patient was ordered to get a 2 L of normal saline IV, Reglan 10 mg IV and Benadryl 25 mg IV. At this time I do not think that the patient can be discharged home times caused by her anorexia/poor oral intake, malnutrition, volume depletion/dehydration. The patient is not stable for discharge in his not appropriate for case management since she will need to be asymptomatic and able to eat and drink prior to discharge. Therefore I believe that he has to be admitted for further treatment. I did discuss the patient's presentation with Dr. Gordon. He was concerned that the patient could have a bowel obstruction or pulmonary embolism and requested CT pulmonary angiogram PE protocol and CT abdomen pelvis with IV contrast. 02:31 At the end of my shift, the patient's CT scans are pending. Therefore, the patient's care was turned over to my colleague, Dr. Garrick Navarro. 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 04/11/25 21:57 04/11/25 21:57 Labs: Lab Results 04/11/25 04/12/25 Range/Units 21:57 04:14 WBC 7.3 (4.8-10.8) X10*3/uL RBC 3.32 L (4.20-5.50) X10*6/uL Hgb 9.9 L (12.0-16.0) g/dl Hct 30.2 L (37.0-47.0) % MCV 91.0 (80.0-98.0) fL MCH 29.8 (27.0-33.0) pg MCHC 32.8 (31.0-35.0) g/dl RDW 13.2 (11.0-16.0) % Plt Count 683 H D (160-400) X10*3/uL MPV 9.2 L (9.4-12.3) fL Immature Gran % (Auto) 0.4 (0.0-0.4) % Neut % (Auto) 72.5 (45-73) % Lymph % (Auto) 16.8 L (20-40) % [place] % (Auto) 8.1 (2-11) % Eos % (Auto) 1.5 (0-4) % Baso % (Auto) 0.7 (0-2) % Lymph # (Auto) 1.2 (1.2-4.9) X10*3/uL [place] # (Auto) 0.6 (0.1-1.2) X10*3/uL Eos # (Auto) 0.1 (0.0-0.4) X10*3/uL Baso # (Auto) 0.1 (0.0-0.2) X10*3/uL Abs Immat Gran (auto) 0.03 (0.00-0.03) X10*3/uL Absolute Neuts (auto) 5.3 (2.0-8.3) x10*3/uL Absolute Nucleated RBC 0.000 (0.0-0.012) X10*3/uL Nucleated RBC % (auto) 0.0 (0.0-0.2) /100WBC Sodium 138 (135-145) mmol/L Potassium 3.9 (3.3-5.1) mmol/L Chloride 108 (96-108) mmol/L Carbon Dioxide 21 L (22-29) mmol/L Anion Gap 13 (12-20) BUN 36 H (9-16) mg/dL Creatinine 0.86 (0.5-1.4) mg/dL Estim Creat Clear Calc 48.8 Estimated GFR > 60 Random Glucose 126 H (60-115) mg/dL Calcium 9.7 (8.4-10.2) mg/dL Total Bilirubin 0.3 (0.0-1.0) mg/dL AST 20 (5-31) U/L ALT 15 (0-31) U/L Alkaline Phosphatase 186 H (39-117) U/L Troponin I High Sens 12.4 D (<3.5-17.0) ng/L Total Protein 7.2 (6.5-8.0) g/dL Albumin 3.8 (3.5-5.0) g/dL Urine Color Yellow Urine Appearance Clear Urine pH 5.5 (5.0-9.0) Ur Specific [place] >= 1.030 H (1.005-1.025) Urine Protein Negative (Neg-Trace) mg/dL Urine Glucose (UA) Negative (Negative) mg/dL Urine Ketones Negative (Negative) mg/dL Urine Blood Negative (Negative) Urine Nitrite Negative (Negative) Ur Leukocyte Esterase Moderate (2+) H (Negative) Urine RBC 0-2 (0-2) /HPF Urine WBC 11-20 H (0-5) /HPF Ur Squamous Epith Cells 0-2 (0-2) /HPF Urine Bacteria None Seen (None Seen) Hyaline Casts 0-2 (0-2) /LPF Independent Interpretation I performed an independent interpretation of an: EKG Interpretation: My independent interpretation of the patient's 12 EKG done on 04/11/2025 at 13:50 sinus tachycardia with a rate of 120, normal WI interval, QRS duration QTC interval, no ST segment elevation, no ST segment depression, no significant T- wave abnormalities, no PACs, no PVCs Independent Historian Clinical information obtained from an independent historian. History obtained from or confirmed by: Other (Sister) External Record Review External record reviewed: Outpatient record ([facility] discharge summary) Chronic Conditions Patient?s care impacted by: Other (Coronary artery disease) Discharge Plan Discharge Clinical Impression: Dizziness, Weakness, Anorexia, Malnutrition, Volume depletion, Status post total colectomy Patient Disposition: Home, Self-Care Instructions: Benign Paroxysmal Positional Vertigo (DC) Additional Instructions: Drink plenty of fluids Take meclizine for vertiginous feeling Activity as tolerated Follow up with your PCP Prescriptions: New meclizine 25 mg tablet 25 mg PO TID PRN (Reason: dizziness) Qty: 20 0RF No Action naproxen 500 mg tablet 500 mg PO BID 20 Days Qty: 40 0RF atorvastatin 40 mg tablet 40 mg PO BEDTIME metoprolol succinate 100 mg tablet extended release 24 hr 100 mg PO BEDTIME Rx Instructions: Take with metoprolol 25 mg for a total dose -125mg daily amlodipine 10 mg tablet 10 mg PO BEDTIME omeprazole 20 mg capsule,delayed release(DR/EC) 20 mg PO DAILY@0630 cholecalciferol (vitamin D3) 50 mcg (2,000 unit) capsule 50 mcg PO BEDTIME gabapentin 100 mg capsule 100 - 300 mg PO BEDTIME metoprolol succinate 25 mg tablet extended release 24 hr 25 mg PO BEDTIME Rx Instructions: Take with metoprolol 100mg daily-125mg daily oxycodone 5 mg tablet 5 mg PO Q6H PRN (Reason: severe pain (scale score 7-10)) Qty: 12 0RF Rx Instructions: Partial Fill upon patient request. losartan 100 mg tablet 100 mg PO BEDTIME aspirin [Adult Aspirin Regimen] 81 mg tablet,delayed release (DR/EC) 81 mg PO BEDTIME Print Language: Slovenian
[2025-04-11 22:55] VITALS: BP 136/65; PULSE 112
[2025-04-11 22:56] VITALS: BP 139/73; PULSE 118
[2025-04-12 02:15] VITALS: BP 140/64; PULSE 107; RESP 16; TEMP 36.6; O2SAT 97
[2025-04-12 02:20] VITALS: BP 156/69
[2025-04-12] MEDS: iohexoL 350 MG/ML 100 ML INFUS..BTL 85 ML IV (02:32)
[2025-04-12 03:37] VITALS: BP 154/66; PULSE 113; RESP 18; TEMP 36.9; O2SAT 97
[2025-04-12 04:47] LABS: Appearance Urine Clear; Glucose Urine UA Negative (Negative); PH 5.5 (5.0-9.0); Specific Gravity - Urine >= 1.030 (1.005-1.025); UMIC TRIGGER UACC YES
[2025-04-12 04:52] LABS: UACC Culture Trigger YES
[2025-04-12 08:04] VITALS: BP 154/66; PULSE 113; RESP 18; TEMP 36.9; O2SAT 97
== END 2025-04-12 08:04 | disposition home or self-care (01) ==
PROVIDERS: Emergency Medicine Emergency Medical Services; Emergency Provider Internal Medicine
DX: R42 Dizziness and giddiness (principal); R53.1 Weakness; E46 Unspecified protein-calorie malnutrition; F50.89 Other specified eating disorder; Z68.22 Body mass index [BMI] 22.0-22.9, adult; Z93.3 Colostomy status; Z93.2 Ileostomy status; Z90.49 Acquired absence of other specified parts of digestive tract
CPT/HCPCS: 36415; 71275; 74177; 80053; 81001; 84484; 85025; 87086; 93005; 96361; 96374; 96375; 96376; 99285; J1200; J1308; J2405; J2765; Q9967

== ENCOUNTER → 2025-04-11 21:55 | Outpatient (BNV) | payer OTHER, SELFPAY | PROVIDERS: Emergency Provider Internal Medicine; Visit Provider Internal Medicine | DX: I25.2 Old myocardial infarction (principal); R00.0 Tachycardia, unspecified | CPT/HCPCS: 93010 ==

== ENCOUNTER → 2025-04-12 02:05 | Outpatient (BNV) | payer OTHER, SELFPAY | PROVIDERS: Emergency Provider Internal Medicine; Visit Provider Radiology Diagnostic Radiology | DX: R14.0 Abdominal distension (gaseous) (principal); R53.1 Weakness; R42 Dizziness and giddiness | CPT/HCPCS: 71275; 74177 ==

== ENCOUNTER 2025-04-24 14:58 | Outpatient (AMB) | payer OTHER, SELFPAY ==
--- OUTSIDE RECORDS SUMMARY | 2025-04-24 15:01 | XMS_ITS | Clinical Summary ---
Author Organization [facility] Address [address] [address] Phone Care Team Providers Care Account Executive Name Role Phone Katelynn Young MD Primary Care Provider [phone] Allergies Active Allergy Reactions Criticality Noted Date [...] 24 hr tabletIndicatio ns:Coronary artery disease involving [place] coronary artery of [place] heart without angina pectoris Take 2 tablets [...] Diagnosed Date Coronary artery disease invo lving [place] coronary artery of [place] heart without angina pectoris 10/13/2017 Assessment & [...] - 03/17/2025 11:59 PM EDT Hospital Encounter [facility] Laboratory [address] [place] [address] Rashmi Díaz MD Discharge Disposition: Home or Self Care 03/14/2025 8:05 AM EDT - 03/14/2025 11:59 PM EDT Hospital Encounter [facility] Laboratory [address] [place] [address] Rashmi Díaz MD Discharge Disposition: Home or Self Care 03/14/2025 Transcribe Orders [facility] Specimen Processing [address] [place] [address] Rashmi Díaz MD Spinal stenosis, unspecified spinal [...] Description 12/29/2025 3:00 PM EDT Office Visit [facility] [address] [place] [address] 3rd [facility], [address] [place] [id number] Daron Johnson MD [address] [place] [address], [address] [address] [email or web address] Health Maintenance Due Date Last Done Comments [...] EDT Essential hypertension Coronary artery disease involving [place] coronary artery of [place] heart without angina pectoris Pure hypercholesterolemia CBC Routine 03/14/2025 7:00 AM EDT Spinal stenosis, unspecified spinal region from Last 3 Months Results * (ABNORMAL) CBC (03/17/2025 6:15 AM EDT) Only the most recent of2 resultswithin the time period is included. WBC 15.21(H) 4.00 - 11.00 K/uL [facility] RBC 3.93(L) 4.00 - 5.20 M/uL [facility] HGB 11.9(L) 12.0 - 16.0 g/dL [facility] HCT 36.4 36.0 - 46.0 % [facility] PLT 332 150 - 450 K/uL [facility] MCV 92.6 80.0 - 100.0 fL [facility] MCH 30.3 27.0 - 31.0 pg [facility] MCHC 32.7 32.0 - 36.0 g/dL [facility] RDW 12.2 11.5 - 14.5 % [facility] MPV 10.1 8.4 - 12.0 fL [facility] NRBC 0.00 0.00 /100 WBCs [facility] ABSOLUTE NRBC 0.00 0.00 K/uL [facility] 03/17/2025 6:15 AM EDT 03/17/2025 8:45 AM EDT us Rashmi Díaz MD LAB BLOOD ORDERABLES Final Res ult [address] [address] * (ABNORMAL) Basic metabolic panel (03/17/2025 6:15 AM EDT) SODIUM 134 133 - 146 mmol/L [facility] CHLORIDE 99 96 - 108 mmol/L [facility] POTASSIUM 4.3 3.3 - 5.1 mmol/L [facility] CO2 23 21 - 35 mmol/L [facility] BUN 24(H) 6 - 19 mg/dL [facility] CREATININE 0.60 0.5 - 1.5 mg/dL [facility] GLUCOSE 86 70 - 99 mg/dL [facility] CALCIUM 9.3 8.4 - 10.3 mg/dL [facility] EGFR 97 >59 mL/min/1.7 3m2 [facility] Comment:Estimated glomerular filtration rate calculated using the CKD-EPI refit equation. ANION GAP 16 10 - 20 mmol/L [facility] 03/17/2025 6:15 AM EDT 03/17/2025 8:45 AM EDT us Rashmi Díaz MD LAB BLOOD ORDERABLES Final Res ult [address] [address] * (ABNORMAL) Comprehensive metabolic panel (03/14/2025 7:00 AM EDT) SODIUM 136 133 - 146 mmol/L [facility] POTASSIUM 4.6 3.3 - 5.1 mmol/L [facility] CHLORIDE 102 96 - 108 mmol/L [facility] CO2 24 21 - 35 mmol/L [facility] BUN 29(H) 6 - 19 mg/dL [facility] CREATININE 0.70 0.5 - 1.5 mg/dL [facility] GLUCOSE 96 70 - 99 mg/dL [facility] ALBUMIN 3.5(L) 3.9 - 4.8 g/dL [facility] TOTAL PROTEIN 6.0(L) 6.5 - 8.0 g/dL [facility] CALCIUM 9.5 8.4 - 10.3 mg/dL [facility] ALKALINE PHOSPHATASE 174(H) 39 - 117 U/L [facility] TOTAL BILIRUBIN 0.3 0.0 - 1.2 mg/dL [facility] AST 12 0 - 37 U/L [facility] ALT 11 0 - 40 U/L [facility] GLOBULIN 2.5 1 - 4.8 g/dL [facility] EGFR 94 >59 mL/min/1.7 3m2 [facility] Comment:Estimated glomerular filtration rate calculated using the CKD-EPI refit equation. ANION GAP 15 10 - 20 mmol/L [facility] Blood 03/14/2025 7:00 AM EDT 03/14/2025 9:45 AM EDT us Daron Johnson MD LAB BLOOD ORDERABLES Final Result Performing Organization Address City/[facility]/ZIP Co de Phone Number [address] [address] from Last 3 Months Insurance [facility] PPO [facility] PPO [facility] [place] [address] [place] [address] [place] [address] [place] [address] PPO PPO Care Teams Account Executive Relationship Specialty Start Date End Date Katelynn Young MD [address] [place] [address] PCP - General 07/13/17 Additional Source Comments The information contained in this document represents components of the legal health record. It is not the complete legal health record.[facility]
--- OUTSIDE RECORDS SUMMARY | 2025-04-24 15:01 | XMS_ITS | Clinical Summary ---
Author Organization [address] Address [address] [place] [id number] Phone Care Team Providers Care [employer] Associate Name Role Phone Katelynn Young MD Primary Care Provider [phone] Allergies Active Allergy Reactions Criticality Noted Date [...] BY MOUTH DAILY 30 tablet 02/06/2025 Active naproxen (NAPROSYN) 500 mg tablet TAKE 1 TABLET BY MOUTH TWICE DAILY WITH MEALS 60 tablet 03/10/2025 Active cholecalciferol (VITAMIN D-3) 50 mcg (2,000 unit) capsule TAKE 1 CAPSULE BY MOUTH EVERY DAY 30 capsule 03/10/2025 Active Active Problems Problem Noted Date Diagnosed Date Nephrolithiasis 03/24/2023 Overview (09/13/2024): Left ureteroscopy with Dr. Moo Vasquez Insomnia 06/14/2017 Elevated glucose 10/12/2016 Breast microcalcification, mammographic 04/06/20 11 HTN (hypertension) 03/25/2011 Coronary disease 08/09/2010 Overview (09/13/2024): Two coronary arteries stented July 2010 Daron Enirque Pure hypercholesterolemia 03/29/2006 Encounters Date Type Department Care Team Description 04/24/2025 Telephone Adult Medicine [address] [phone] Katelynn Young MD Triage WEST 04/17/2025 Telephone Adult Medicine [address] [phone] Katelynn Young MD faxed vna order ([facility] [id number]) 04/11/2025 Telephone Adult Medicine [address] [phone] Katelynn Young MD faxed vna orders ([facility] [id number], [id number] & Home Health Cert [id number]) 04/03/2025 Telephone Adult Medicine [address] [phone] Radha Santiago MA PHYSICIANS ORDERS 03/27/2025 Telephone Adult Medicine [address] [phone] Katelynn Young MD faxed vna order ([facility] Cert [id number]) 03/25/2025 Telephone Adult Medicine [address] [phone] Katelynn Young MD VNA 03/25/2025 Telephone Adult Medicine [address] [phone] Katelynn Young MD Call back; med list from Last 3 Months Immunizations Name Administration Dates Next Due Influenza [...] 12:30 PM EDT Appointment Radiology Department [address] [phone] Health Maintenance Due Date Last Done Comments Zoster Vaccines (1 of 2) 2005 Falls Risk Assessment 09/03/2022 Osteoporosis Screening (Bone Density Screening) 09/03/2022 Social Influencers of Health Screening 09/03/2022 Pneumococcal Vaccine: 50+ Years (2 of 2 - PPSV23) 04/19/2023 04/19/2022 COVID-19 Vaccine ( season) 2024 10/29/2021, 01/26/2021, 12/30/2020 Depression Screening 09/25/2024 Hypertension/CHF/CAD Annual BMP Blood Test 02/08/2025 02/09/2024, 02/09/2024 Influenza Vaccine (#1) 2025 , 07/20/2022, 07/19/2021, Additional history exists Colorectal Cancer [...] Results * Stool Based Tests (FOBT/FIT) (07/22/2024) [facility] Colorectal Cancer Screening: Stool Based Tests no interpretation , abstracted Historical Provider MD HEALTH MAINTENANCE Final Result * Annual BMP Blood Test (02/09/2024) [facility] Annual BMP Blood Test abstracted us Historical Provider HEALTH MAINTENANCE Final Result * (ABNORMAL) Lipid panel (02/09/2024) LDL/HDL Ratio 3 0 - 4 Triglycerides 152(A) 0 - 150 mg/dL Cholesterol 173 0 - 200 mg/dL HDL 70 >=40 mg/dL LDL Cholesterol 73 0 - 100 mg/dL Blood Venous blood specimen / Unknown us Historical Provider LAB BLOOD ORDERABLES Lucrecia l Result [...] with the patient at completionof the studies. Katelnyn Young MD [facility] BI [facility]ED[facility] Edited Result - Final * Hepatitis C Screening (08/08/2016) Hepatitis C Screening abstracted Historical Provider HEALTH MAINTENANCE Final Result from Last 3 Months or Most Recently Relevant to Health Maintenance Insurance MEDICARE Care Teams Grocery [employer] Associate Relationship Specialty Start Date End Date Katelynn Young MD [address] [place] [address] PCP - General 07/25/1999
--- NOTE | 2025-04-24 15:04 | A.OFFPC_ITS ---
Vital Signs 04/24/25 15:06 04/24/25 18:01 Height 5 ft 2 in Weight 123 lb BMI 22.5 BP 128/68 Blood Pressure Location Lt brachial Position Sitting Respiration 16 Pulse 127 H 100 Pulse Source Pulse Oximeter Temp 98.7 F Temp Source Oral Pulse Oximetry (%) 97 Intake Visit Reasons: 6m follow up Fiscal Services Manager Required: No Accompanied by: Self / Same As Patient Allergies atenolol (ATENOLOL) Allergy (Unknown, Verified 04/24/25 15:58) COUGH oxycodone Allergy (Unknown, Verified 04/24/25 15:58) Unknown ADHESIVE BANDAGE Allergy (Unknown, Uncoded 04/24/25 15:58) RASH Medication List - Last Reconciled 04/24/25 by AMELIA Mandel- amlodipine 10 mg PO BEDTIME 30 days aspirin (Adult Aspirin Regimen) 81 mg PO BEDTIME atorvastatin 40 mg PO BEDTIME cholecalciferol (vitamin D3) 50 mcg PO BEDTIME gabapentin 100 - 300 mg PO BEDTIME losartan 100 mg PO BEDTIME meclizine 25 mg PO TID PRN naproxen 500 mg PO BID 20 days omeprazole 20 mg PO DAILY@0630 Tobacco use date assessed: 04/24/25 Fall risk assessment: No Falls in past year Last assessed Fall Risk: 04/24/25 Dental Screening Dental Screen Date: 04/24/25 Did you have a dental visit in the last 12 months?: Yes Did you have a dental problem in the last 6 months where you did not have access to dental care?: No Was dental information given to patient?: Patient has dentist HPI 6m follow up HPI Details Chief Complaint The patient presents for a follow-up after hospital discharge. History of Present Illness The patient is a 69-year-old female presenting with a follow-up after hospital discharge. She was admitted to [facility] at the beginning of March with septic shock and developed ischemic colitis during resuscitation, requiring multiple vasopressors. An urgent surgical intervention was performed, revealing multiple areas of ischemia in the colon, leading to a total abdominal colectomy. Initially, she was left in discontinuity due to profound vasopressor requirements but later underwent definitive abdominal closure and end ileostomy creation. She improved and was transferred to the ICU, eventually being discharged home. The patient reports muscle atrophy and weakness, particularly in the lower extremities, attributed to her prolonged ICU stay. She is receiving physical therapy at home and is currently using a walker for mobility while at home, though use of wheelchair today. The patient also reports a metallic taste in her mouth and poor appetite, though she has started eating small meals like spaghetti. Her sister, a nurse, is assisting with her care, and she is encouraged to consume high-protein supplements like Ensure or Boost to aid in muscle recovery, as she continues to increase her diet and push fluids. Social History - Family Status: Sister is a nurse and a ssists with care. - Functional Status: Currently using a w alker for mobility, receiving physical therapy at home. - Nutritional Intake: Poor appetite, con suming small meals, encouraged to take high-protein supplements. Health Maintenance - Encouraged high-protein diet with supp lements like Ensure or Boost to aid muscle recovery. - Emphasized the importance of physical therapy and safe physical activity at home. Review of Systems - General: Reports muscle atrophy and we akness, poor appetite, metallic taste in mouth. - Gastrointestinal: Reports poor appetit e, consuming small meals. -denies any sob, cp, fevers, chills, vom iting, abd pains Physical Exam General: Cooperative, healthy appearing, comfortable, no acute distress and well developed Orientation: Patient oriented x3 Limitations: Muscle atrophy and weakness in lower extremities Head: Normal to inspection Ears: Hearing grossly normal bilaterally Nose: Normal external nose present Face and sinus: Normal facial exam Eyes: Appearance normal, both eyes and all related structures Neck: Normal visual inspection and Yes full ROM Respiratory: Normal respiratory effort and able to speak in complete sentences. Lungs are clear to auscultation bilaterally Cardiovascular: Regular rate and rhythm. Normal S1 and S2 GI: Iliostomy present in the right abdomen with soft brown stool output, stoma looks pink, bowel sounds are present Skin: No rashes or lesions noted Neuro: Patient oriented x3 Extremities: Muscle atrophy and weakness in lower extremities Results Plan The patient is advised to continue with physical therapy at home to improve muscle strength and mobility, with the goal of transitioning from a walker to a cane and eventually walking independently. She is encouraged to maintain a high- protein diet, including supplements like Ensure or Boost, to support muscle recovery and address her poor appetite. Regular follow-up with the surgical team is scheduled for next month to monitor her progress post-ileostomy and ensure proper healing. The patient is advised to maintain adequate oral fluid intake and to contact the healthcare provider with any concerns or questions. Discussion Notes I discussed with the patient the importance of continuing physical therapy to regain strength and mobility, emphasizing the goal of transitioning from a walker to a cane and eventually walking independently. We talked about the need for a high-protein diet to support muscle recovery, and I recommended supplem ents like Ensure or Boost. I reinforced the importance of adequate oral fluid intake and advised her to contact me with any concerns or questions. Patient Instructions - Continue physical therapy at home to i mprove strength and mobility. - Follow a high-protein diet and conside r supplements like Ensure or Boost. - Maintain adequate oral fluid intake. - Contact healthcare provider with any c oncerns or questions. -cont to follow up with general surg (ne xt appt next month) REPLACED BY [facility] Medical History CAD (coronary artery disease) Hydronephrosis with urinary obstruction due to renal calculus Postmenopausal Vitamin D deficiency Personal history of nicotine dependence Surgical History History of tubal ligation History of tonsillectomy History of heart artery stent History of cystoscopy History of right cataract surgery History of left breast biopsy Family History Father No problems noted. Mother No problems noted. Sister Breast cancer, Onset Age: 47 Social History Household Members: Family Housing: House Do you presently have visiting nurse or other home services: No Alcohol intake: never Comment: patient refused camera, chair alarm, bed alarm Patient Tobacco Use Status: Former Tobacco user Years Smoked: (onset 16yo, 1ppd x 41yrs, 40pyh - quit 2012) e-Cigarette/Vaping Use: Never Used Second Hand Smoke Exposure: No Advance Directives Date on File: 03/11/25 service: No Current occupational status: employed Current occupation: [employer] Current occupational exposures/hazards: No Cognitive needs: No Hearing needs: No Vision needs: Yes Questionnaire PHQ-9 Over the last 2 weeks, how often have you been bothered by any of the following problems? 1. Little interest or pleasure in doing things: not at all 2. Feeling down, depressed, or hopeless: not at all 3. Trouble falling or staying asleep, or sleeping too much: not at all 4. Feeling tired or having little energy: not at all 5. Poor appetite or overeating: not at all 6. Feeling bad about yourself - or that you are a failure or have let yourself or your family down: not at all 7. Trouble concentrating on things, such as reading the newspaper or watching television: not at all 8. Moving or speaking so slowly that other people could have noticed. Or the opposite - being so fidgety or restless that you have been moving around a lot more than usual: not at all 9. Thoughts that you would be better off or of hurting yourself in some way: not at all Total score: 0 Depression Screening Interpretation: Negative Depression Screening Done: Yes 45354 - PHQ-9 Billing: Yes Source: Developed by Drs. Zenon Long, Fina Teague, Jerel Haddad and colleagues, with an educational jennifer from [employer]. Thrive Questionnaire Date Thrive assessed: 10/24/24 I am a: Patient What is your living situation today?: I have a steady place to live Within the past 12 months, did the food you bought not last and you didn't have the money to get more?: Never true Within the past 12 months, did you worry whether your food would run out before you got money to buy more?: Never true Do you have trouble paying for medicines?: No Do you have trouble getting transportation to medical appointments?: No Do you have trouble paying your heating and electricity bill?: No Do you have trouble taking care of your child, family member or friend?: No Do you have trouble with day-to-day activities such as bathing, preparing meals, shopping, managing finances, etc.?: No Are you currently unemployed and looking for a job?: No Are you interested in more education?: No Please select the resources that you would like help with: None Currently or been in a relationship where the following occur: I choose not to answer THRIVE Score: 0 AUDIT C Alcohol Use Questionnaire (AUDIT-C) 3. How often do you have six or more drinks on one occasion?: Never Total Score: 0 ANH-7 AMB Questionnaire ANH-7 Date ANH - 7 assessed: 04/24/25 Feeling nervous, anxious, or on edge: 0 = Not at all Not being able to stop or control worryin = Not at all Worrying too much about different things: 0 = Not at all Trouble relaxin = Not at all Being so restless that it is hard to sit still: 0 = Not at all Becoming easily annoyed or irritable: 0 = Not at all Feeling afraid as if something awful might happen: 0 = Not at all Total ANH-7 score (0-4 normal; 5-9 mild; 10-14 moderate; 15-21 severe): 0 Source: Developed by Drs. Zenon Long, Fina Teague, Jerel Haddad and colleagues, with an educational jennifer from [employer]. ANH-7 Assessment Billing ANH-7 Assessment Tool: ANH-7 Assessment 67807 Physical exam (Primary Care) Vital Signs: Last Vital Signs Temp 98.7 F 04/24/25 15:06 Pulse 127 H 04/24/25 15:06 Resp 16 04/24/25 15:06 BP 128/68 04/24/25 15:06 Pulse Ox 97 04/24/25 15:06 BMI result Body Mass Index 22.5 Tobacco/Smoking Status: Tobacco use Status Tobacco use date assessed 04/24/25 04/24/25 15:15 Patient Tobacco Use Status Former Tobacco user 04/24/25 15:15 e-Cigarette/Vaping Use Never Used 04/24/25 15:15 PHQ-9: PHQ-9 Score PHQ-9: Total score 0 04/24/25 15:15 Depression Screening Interpretation: Negative Thrive Assessment: Date of Thrive Assessment Date Thrive assessed 10/24/24 04/24/25 15:15 Currently or been in a relationship where the following occur: I choose not to answer Coding Level of Care Code Est Pt Level 4 (30845) Diagnoses Ileostomy in place Z93.2 Ischemic colitis K55.9 Additional Codes ANH-7 Assessment Billing - ANH-7 Assessment Tool: ANH-7 Assessment 93375 ([id number]) PHQ-9 - 74457 - PHQ-9 Billing: Yes ([id number]) Assessment & Plan Assessment & Plan (1) Ileostomy in place: Code(s): Z93.2 - Ileostomy status Category: Medical (2) Ischemic colitis: Code(s): K55.9 - Vascular disorder of intestine, unspecified Category: Medical Plan . Orders: Orders Complete Blood Count Auto Diff Today K55.9 - Vascular disorder of intestine, unspecified, Z90.49 - Acquired absence of other specified parts of digestive tract, Z93.2 - Ileostomy status UA CC w/rflx Micro + Cult Today K55.9 - Vascular disorder of intestine, unspecified, Z90.49 - Acquired absence of other specified parts of digestive tract, Z93.2 - Ileostomy status Comprehensive [place]. Panel Fast Today K55.9 - Vascular disorder of intestine, unspecified, Z90.49 - Acquired absence of other specified parts of digestive tract, Z93.2 - Ileostomy status TSH reflex Free T4 Today K55.9 - Vascular disorder of intestine, unspecified, Z90.49 - Acquired absence of other specified parts of digestive tract, Z93.2 - Ileostomy status Magnesium Today K55.9 - Vascular disorder of intestine, unspecified, Z90.49 - Acquired absence of other specified parts of digestive tract, Z93.2 - Ileostomy status Medications: New losartan 100 mg PO BEDTIME 90 tabs 0RF omeprazole 20 mg PO DAILY@0630 90 caps 0RF atorvastatin 40 mg PO BEDTIME 90 tabs 0RF Changed From amlodipine 10 mg PO BEDTIME To amlodipine 10 mg PO BEDTIME 30 tabs 3RF 30 days Refilled naproxen 500 mg PO BID 40 tabs 0RF 20 days
[2025-04-24 15:06] VITALS: BP 128/68; PULSE 127; RESP 16; TEMP 37.1; O2SAT 97; BMI 22.5
[2025-04-24 18:01] VITALS: PULSE 100
== END 2025-04-24 16:31 | disposition home or self-care (01) ==
LOC: HO.HMCC 14:58
PROVIDERS: PCP Nurse Practitioner Family; Visit Provider Nurse Practitioner Family
DX: Z93.2 Ileostomy status (principal); K55.9 Vascular disorder of intestine, unspecified

== ENCOUNTER → 2025-04-24 14:58 | Outpatient (BNVA) | payer OTHER, SELFPAY | PROVIDERS: PCP Nurse Practitioner Family; Visit Provider Nurse Practitioner Family | DX: K55.9 Vascular disorder of intestine, unspecified (principal); Z90.49 Acquired absence of other specified parts of digestive tract; Z93.2 Ileostomy status | CPT/HCPCS: 96127 ==

== ENCOUNTER 2025-07-30 09:19 | Outpatient (AMB) | payer OTHER, SELFPAY ==
--- NOTE | 2025-07-30 09:44 | A.OFFPC_ITS ---
Vital Signs 07/30/25 09:46 Height 5 ft 2 in Weight 114 lb BMI 20.8 BP 136/72 Blood Pressure Location Lt brachial Position Sitting Respiration 16 Pulse 115 H Pulse Source Pulse Oximeter Temp 98.7 F Temp Source Oral Pulse Oximetry (%) 99 Oxygen Delivery Method Room Air Intake Visit Reasons: Follow up 3m Insulation Installer Required: No Accompanied by: Self / Same As Patient Allergies atenolol (ATENOLOL) Allergy (Unknown, Verified 07/30/25 09:47) COUGH oxycodone Allergy (Unknown, Verified 07/30/25 09:47) Unknown ADHESIVE BANDAGE Allergy (Unknown, Uncoded 07/30/25 09:47) RASH Tobacco use date assessed: 04/24/25 Fall risk assessment: No Falls in past year Last assessed Fall Risk: 07/30/25 Dental Screening Dental Screen Date: 04/24/25 HPI Follow up 3m HPI Details Chief Complaint Patient presents for a follow up after a serious event in March. History of Present Illness The patient is a 70 year old female presenting for a follow-up after a serious event in March. She experienced septic shock, which led to ischemic colitis requiring multiple vasopressors and urgent surgical intervention. This resulted in a total abdominal colectomy with the creation of an ileostomy. The patient reports she is getting much stronger and is overall doing much better. Her ileostomy drains liquid brown stool, but she notes that it leaks frequently. She has experienced some weight loss, as she is afraid to eat too much due to fear of the bag leaking. Her medication history includes metoprolol succ. 125mg, which was discontinued due to hypotension during her illness. She has started to become more tachyc ardic recently. She reports a large Pearl's cyst on the posterior aspect of her right knee, which developed about four days after a back injection and has been present for a week. She states the cyst is getting a little smaller. Social History - Family Support: The patient's sister i s a nurse who is with her often, helps with changing her ileostomy bags, and monitors her condition. - Functional Status: She is getting much stronger. - Nutritional Intake: The patient is afr aid to eat too much because she fears her ileostomy bag will leak, which has contributed to some weight loss. Health Maintenance - Diet: The importance of a high protein diet was reinforced. - Monitoring: The patient will continue to monitor her heart rate and blood pressure at home. - Labs: Will obtain labs in the near fut ure. - Follow-up: Will follow up with her gen rolando surgeon this Monday for possible ileostomy reversal and will return to this clinic in 4 months. Review of Systems - Constitutional: Denies fevers and chil ls. - Reports weight loss. - Gastrointestinal: Denies abdominal danette n and blood in stool. - Reports her ileostomy drains liquid br own stool and leaks a lot. - Cardiovascular: Reports recent tachyca rdia. - Musculoskeletal: Reports a large Pearl 's cyst on the posterior aspect of her right knee, which is getting smaller. Physical Exam General: Cooperative, healthy appearing, comfortable, no acute distress and well developed Orientation: Patient oriented x3 Limitations: No limitations Head: Normal to inspection Ears: Hearing grossly normal bilaterally Nose: Normal external nose present Face and sinus: Normal facial exam Eyes: Appearance normal, both eyes and all related structures Neck: Normal visual inspection and Yes full ROM Respiratory: Normal respiratory effort and able to speak in complete sentences. Clear to auscultation bilaterally Cardiovascular: Tachy. Normal S1 and S2 GI: Iliostomy in place, draining liquid brown stool. Bowel sounds are present. Soft to palpation and nontender Skin: No rashes or lesions noted Neuro: Patient oriented x3 Extremities: Large Pearl cyst through the posterior aspect of the right knee. Normal to inspection otherwise Results Plan 1. Status Post Total Abdominal Colectomy With Ileostomy The patient is recovering well from her total abdominal colectomy and is getting stronger. Her ileostomy bag frequently leaks, causing her to be afraid to eat, which has resulted in some weight loss. She has a follow-up with her general surgeon this Monday to discuss possible reversal. Reinforced the importance of a high protein diet. 2. Tachycardia The patient is experiencing tachycardia and her blood pressure has started to rise since her metoprolol was stopped due to hypotension during her acute illness. Will restart her on metoprolol XL 25 mg once daily, with a plan to increase to 50 mg. She will continue to monitor her heart rate and blood pressure/hr at home. 3. Pearl's Cyst Of Right Knee The patient has a large Pearl's cyst on the posterior aspect of her right knee, which she reports appeared about four days after a back injection and has been present for about a week. She states it is getting a little smaller. Will continue to monitor. Discussion Notes I informed the patient that she has come a long way and is doing quite well overall since her hospitalization. We discussed her weight loss and fear of eating due to the ileostomy bag leakage, and I reinforced the importance of a high protein diet for her strength and recovery. We discussed restarting her on metoprolol, starting with 25 mg and increasing to 50 mg, to manage her recent tachycardia and rising blood pressure. We also acknowledged the Pearl's cyst on her right knee and agreed to continue monitoring it as it seems to be improving on its own. I advised her to follow up with her general surgeon for potential ostomy reversal, get some labs done in the near future, and see me again in four months. Patient Instructions - Take metoprolol XL 25 mg by mouth once a day. We will plan to increase this to 50 mg in the future. - Continue to check your heart rate and blood pressure at home. - It is important to eat a diet high in protein to help you get stronger. - Keep your appointment with your jarado n this Monday to discuss the possible reversal of your ileostomy. - Continue to watch the cyst behind your right knee. It seems to be getting smaller, which is good. - Please have lab work done in the near future. - Schedule an appointment to see me for a follow-up in 4 months. [facility] Medical History CAD (coronary artery disease) Hydronephrosis with urinary obstruction due to renal calculus Postmenopausal Vitamin D deficiency Personal history of nicotine dependence Surgical History History of tubal ligation History of tonsillectomy History of heart artery stent History of cystoscopy History of right cataract surgery History of left breast biopsy Family History Father No problems noted. Mother No problems noted. 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 [employer] Current occupational exposures/hazards: No Cognitive needs: No Hearing needs: No Vision needs: Yes Questionnaire Thrive Questionnaire Date Thrive assessed: 10/24/24 I am a: Patient What is your living situation today?: I have a steady place to live Within the past 12 months, did the food you bought not last and you didn't have the money to get more?: Never true Within the past 12 months, did you worry whether your food would run out before you got money to buy more?: Never true Do you have trouble paying for medicines?: No Do you have trouble getting transportation to medical appointments?: No Do you have trouble paying your heating and electricity bill?: No Do you have trouble taking care of your child, family member or friend?: No Do you have trouble with day-to-day activities such as bathing, preparing meals, shopping, managing finances, etc.?: No Are you currently unemployed and looking for a job?: No Are you interested in more education?: No Please select the resources that you would like help with: None Currently or been in a relationship where the following occur: I choose not to answer THRIVE Score: 0 ANH-7 AMB Questionnaire ANH-7 Date ANH - 7 assessed: 04/24/25 Source: Developed by Drs. Zenon Long, Fina Teague, Jerel Haddad and colleagues, with an educational jennifer from [employer]. Physical exam (Primary Care) Vital Signs: Last Vital Signs Temp 98.7 F 07/30/25 09:46 Pulse 115 H 07/30/25 09:46 Resp 16 07/30/25 09:46 BP 136/72 07/30/25 09:46 Pulse Ox 99 07/30/25 09:46 Oxygen Delivery Method Room Air 07/30/25 09:46 BMI result Body Mass Index 20.8 Tobacco/Smoking Status: Tobacco use Status Tobacco use date assessed 04/24/25 07/30/25 09:44 Patient Tobacco Use Status Former Tobacco user 07/30/25 09:44 e-Cigarette/Vaping Use Never Used 07/30/25 09:44 Thrive Assessment: Date of Thrive Assessment Date Thrive assessed 10/24/24 07/30/25 09:44 Currently or been in a relationship where the following occur: I choose not to answer Coding Level of Care Code Est Pt Level 4 (82412) Diagnoses Ileostomy in place Z93.2 Ischemic colitis K55.9 Tachycardia R00.0 Assessment & Plan Assessment & Plan (1) Ileostomy in place: Code(s): Z93.2 - Ileostomy status Category: Medical (2) Ischemic colitis: Code(s): K55.9 - Vascular disorder of intestine, unspecified Category: Medical (3) Tachycardia: Code(s): R00.0 - Tachycardia, unspecified Category: Medical Plan . Orders: Orders Comprehensive Erwin. Panel Fast Today K55.9 - Vascular disorder of intestine, unspecified, Z93.2 - Ileostomy status UA CC w/rflx Micro + Cult Today K55.9 - Vascular disorder of intestine, unspecified, Z93.2 - Ileostomy status Complete Blood Count Auto Diff Today K55.9 - Vascular disorder of intestine, unspecified, Z93.2 - Ileostomy status TSH reflex Free T4 Today K55.9 - Vascular disorder of intestine, unspecified, Z93.2 - Ileostomy status Lipid Panel Today K55.9 - Vascular disorder of intestine, unspecified, Z93.2 - Ileostomy status Magnesium Today K55.9 - Vascular disorder of intestine, unspecified, Z93.2 - Ileostomy status Medications: New metoprolol succinate ER 50 mg PO DAILY 90 tabs 1RF 90 days
[2025-07-30 09:46] VITALS: BP 136/72; PULSE 115; RESP 16; TEMP 37.1; O2SAT 99; BMI 20.8
--- OUTSIDE RECORDS SUMMARY | 2025-07-30 10:13 | XMS_ITS | Clinical Summary ---
Author Organization [facility] Address [address] [address] Phone Care Team Providers Care Patient Transporter Name Role Phone Katelynn Young MD Primary Care Provider [phone] Allergies Active Allergy Reactions Criticality Noted Date [...] 24 hr tabletIndicatio ns:Coronary artery disease involving [place] coronary artery of [place] heart without angina pectoris Take 2 tablets [...] Diagnosed Date Coronary artery disease invo lving [place] coronary artery of [place] heart without angina pectoris 10/13/2017 Assessment & [...] Plan (10/13/2017 3:53 PM EST): Continue atorvastatin. Family History Medical History Relation Comments CV [...] Description 12/29/2025 3:00 PM EDT Office Visit [facility] [address] [place] [address] [address] Floor, [address] [place] [address] Daron Johnson MD [address] [facility], [address] [place], [place] [id number] Health Maintenance Due Date Last Done Comments DEPRESSION SCREENING 1967 SMOKING Hx and SMOKELESS TOBACCO SCREENING 1968 HEPATITIS C SCREENING 1973 MAMMOGRAM 1995 COLOGUARD 2000 COLONOSCOPY 2000 COLORECTAL CANCER SCREENING 2000 FIT TEST 2000 FOBT 2000 SIGMOIDOSCOPY 2000 VIRTUAL COLONOSCOPY 2000 PNEUMOCOCCAL VACCINES (50+ years) (1 of 1 - PCV) 2005 ZOSTER VACCINES (1 of 2) 2005 OSTEOPOROSIS SCREENING INITIAL (ONE-TIME) 2020 Adult Td,Tdap Booster 06/10/2021 06/10/2011 INFLUENZA VACCINE (#1) 2025 , 07/04/2018, 06/07/2013, Additional history exists COVID-19 VACCINE (3 - 2024- season) 2025 01/26/2021, 12/30/2020 BLOOD PRESSURE 07/05/2025 01/03/2025 CREATININE LEVEL 03/17/2026 03/17/2025, 03/14/2025 POTASSIUM LEVEL 03/17/2026 03/17/2025, 03/14/2025 RSV VACCINE (1 - 1-dose 75+ series) [...] Date/Time Associated Diagnosis Comments BASIC METABOLIC PANEL (BMP) Routine 03/17/2025 6:15 AM EDT Spinal stenosis, lumbar region, without neurogenic claudication from Last 3 Months or Most Recently Relevant to Health Maintenance Results * (ABNORMAL) Basic metabolic panel (03/17/2025 6:15 AM EDT) SODIUM 134 133 - 146 mmol/L [facility] CHLORIDE 99 96 - 108 mmol/L [facility] POTASSIUM 4.3 3.3 - 5.1 mmol/L [facility] CO2 23 21 - 35 mmol/L [facility] BUN 24(H) 6 - 19 mg/dL [facility] CREATININE 0.60 0.5 - 1.5 mg/dL [facility] GLUCOSE 86 70 - 99 mg/dL [facility] CALCIUM 9.3 8.4 - 10.3 mg/dL [facility] EGFR 97 >59 mL/min/1.7 3m2 [facility] Comment:Estimated glomerular filtration rate calculated using the CKD-EPI refit equation. ANION GAP 16 10 - 20 mmol/L [facility] 03/17/2025 6:15 AM EDT 03/17/2025 8:45 AM EDT us Rashmi Díaz MD LAB BLOOD BKR ORDERABLES Final Result [facility] [address] [place] [address] from Last 3 Months or Most Recently Relevant to Health Maintenance Insurance [employer] PPO PPO PPO PPO P[place] [address] [address] PPO Care Teams Patient Transporter Relationship Specialty Start Date End Date Katelynn Young MD [address] [place] [address] PCP - General 07/13/17 Additional Source Comments The information contained in this document represents components of the legal health record. It is not the complete legal health record.[facility]
--- OUTSIDE RECORDS SUMMARY | 2025-07-30 10:13 | XMS_ITS | Clinical Summary ---
Author Organization [address] Address [address] [place] [id number] Phone Care Team Providers Care Lottery Office Manager Name Role Phone Katelynn Young MD Primary Care Provider [phone] Allergies Active Allergy Reactions Criticality Noted Date [...] July 2010 Daron Enrique Pure hypercholesterolemia 03/29/2006 Encounters Date Type Department Care Team Description 05/21/2025 Telephone Adult Medicine [address] [phone] KacieJoseph matt LPN 04/30/2025 Telephone Adult Medicine [address] [phone] Katelynn Young MD 04/29/2025 Telephone Adult Medicine [address] [phone] Katelynn Young MD from Last 3 Months Immunizations Immunization Administration Dates Next Due Influenza Quadravalent, MDCK [...] 07/22/2024 2:29 PM EDT Plan of Treatment Health Maintenance Due Date Last Done Comments Zoster Vaccines (1 of 2) 2005 Falls Risk Assessment 09/03/2022 Osteoporosis Screening (Bone Density Screening) 09/03/2022 Social Influencers of Health Screening 09/03/2022 Pneumococcal Vaccine: 50+ Years (2 of 2 - PCV20 or PCV21) 04/19/2023 04/19/2022 Depression Screening 09/25/2024 Hypertension/CHF/CAD Annual BMP Blood Test 02/08/2025 02/09/2024, 02/09/2024 COVID-19 Vaccine ( - season) 2025 10/29/2021, 01/26/2021, 12/30/2020 Influenza Vaccine (#1) 2025 , 07/20/2022, 07/19/2021, [...] Results * Stool Based Tests (FOBT/FIT) (07/22/2024) Pathologist [facility] Colorectal Cancer Screening: Stool Based Tests no interpretation , abstracted [facility] Provider HEALTH MAINTENANCE Final Result * Annual BMP Blood Test (02/09/2024) Pathologist [facility] Annual BMP Blood Test abstracted [facility] Provider [facility] MAINTENANCE Final Result * (ABNORMAL) Lipid panel (02/09/2024) [facility] LDL/HDL Ratio 3 0 - 4 Triglycerides 152(A) 0 - 150 mg/dL Cholesterol 173 0 - 200 mg/dL HDL 70 >=40 mg/dL LDL Cholesterol 73 0 - 100 mg/dL Blood Venous blood specimen / Unknown [facility] Provider LAB BLOOD ORDERABLES Lucrecia l Result [...] to Health Maintenance Insurance MEDICARE Care Teams Lottery Office Manager Relationship Specialty Start Date End Date Katelynn Young MD [address] [place] [id number] PCP - General 07/25/1999
== END 2025-07-30 10:14 | disposition home or self-care (01) ==
LOC: HO.HMCC 09:20
PROVIDERS: PCP Nurse Practitioner Family; Visit Provider Nurse Practitioner Family
DX: Z93.2 Ileostomy status (principal); K55.9 Vascular disorder of intestine, unspecified; R00.0 Tachycardia, unspecified

== ENCOUNTER 2025-09-04 09:38 | Outpatient (AMB) | payer OTHER, SELFPAY ==
[2025-09-04 09:49] VITALS: BMI 21.0
--- NOTE | 2025-09-04 09:49 | MHC.OFFVIS ---
Vital Signs 09/04/25 09:49 Height 5 ft 2 in Weight 115 lb BMI 21.0 Intake Visit Reasons: B/L knee injections & F/U after injection 07/14/25 Intake Note: Patient is a 70 year old female in office today for Bilateral knee Injection. Patient had bilateral L5 transforaminal epidural injections 07/14/25 epidural help about 50 percent Allergies atenolol (ATENOLOL) Allergy (Unknown, Verified 07/30/25 09:47) COUGH oxycodone Allergy (Unknown, Verified 07/30/25 09:47) Unknown ADHESIVE BANDAGE Allergy (Unknown, Uncoded 07/30/25 09:47) RASH HPI Comments Details: Ms. Pantoja is a 70-year-old female seen in evaluation today for lumbar radiculitis to bilateral lower extremities [id number]. Patient underwent bilateral L5 TFESI on 07/14/2025. She is still experiencing some radiculopathy to the right lower extremity. Patient reports symptoms are improved about 50%. Patient has known severe neuroforaminal narrowing at L5-S1. Patient reports pain level today of 6/10. Her symptoms are worse with activity and improved with rest. Patient would like to consider bilateral knee cortisone injection today but she will be having reversal of her colostomy bag next week. Patient has been using gabapentin with mild relief. She would like to consider something stronger for breakthrough pain. Procedure: Right L3, L5 TFESI 12/25/2023 80% reduction of her pain Right L3, L5 TFESI 05/28/2024 75% reduction of her pain Bilateral L5 TFESI 07/14/2025 50% reduction of her pain [facility] Medical History CAD (coronary artery disease) Hydronephrosis with urinary obstruction due to renal calculus Postmenopausal Vitamin D deficiency Personal history of nicotine dependence Surgical History History of tubal ligation History of tonsillectomy History of heart artery stent History of cystoscopy History of right cataract surgery History of left breast biopsy Family History Father No problems noted. Mother No problems noted. 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 Bilateral knee pain. No incontinence, saddle anesthesia urinary retention. Physical Exam Exam Exam: Lumbar Spine: Examination of the lumbar spine, there is no visible swelling or deformity. She is less tender to the right lower lumbar facets. She has full range of motion of the lumbar spine. She has a mild increase in radicular symptoms to the right lower extremity with extension. Special Tests: Lhermittes sign was negative Heel Toe walk is normal Left straight leg raise: Negative Right straight leg raise: Positive right Special tests Rick test is negative Ganslen's test is negative SI Joint compression test negative Anthony test negative Piriformis stretch is negative Lower Extremities: Full range of motion bilateral lower extremities. She is tender to the medial joint line. No effusion. Her ligaments are intact. Neuro: Sensation: Intact to lower extremities bilaterally Strength L2 (Psoas): 5/5 on the left and 5/5 on the right. L3 (Quads): 5/5 on the left and 5/5 on the right. L4 (Ant tibialis): 5/5 on the left and 5/5 on the right. L5 (EHL) 5/5 on the left and 5/5 on the right. S1 (Gastroc): 5/5 on the left and 5/5 on the right. DTR L4: (Patellar) Left 2 Right 2 S1: (Achilles) Left 0 Right 0 Babinski Downgoing No pathologic clonus. No involuntary movement. Vital Signs: BMI result Body Mass Index 21.0 Results Reviewed Results Reviewed: Bilateral knee x-ray 07/04/2022 impression: Mild diffuse degenerative changes. Atherosclerosis. MRI lumbar spine 05/16/2019 impression: Severe central stenosis at L3-4 secondary to diffuse disc bulge. Severe neuroforaminal stenosis at L5-S1. Assessment & Plan Assessment & Plan (1) Lumbar spondylosis: Code(s): M47.816 - Spondylosis without myelopathy or radiculopathy, lumbar region Category: Medical (2) Lumbar spinal stenosis: Code(s): M48.061 - Spinal stenosis, lumbar region without neurogenic claudication Category: Medical Qualifiers: Neurogenic claudication status: with neurogenic claudication Qualified Code(s): M48.062 - Spinal stenosis, lumbar region with neurogenic claudication (3) Personal history of nicotine dependence: Comment: (onset 16yo, 1ppd x 41yrs, 40pyh - quit 2012) Code(s): Z87.891 - Personal history of nicotine dependence Category: Medical Plan: Plan Ms. Pantoja is a 70-year-old female seen in evaluation today status post bilateral L5 TFESI. Patient is still experiencing some residual radiculopathy primarily to the right lower extremity. We may consider updating her MRI neurosurgical consultation at her leisure. Patient will be undergoing reversal of her colostomy next week. I do not recommend any sort of injections at this time. She may discuss knee injection with her general surgeon to determine timing that as appropriate once her reversal is healed. Patient will continue gabapentin. I will prescribe Percocet for severe breakthrough pain. She will use the medication sparingly. We discussed the benefits of proper nutrition and exercise to maintain a healthy body weight to improve longevity and function. We also discussed the benefits of proper lifting techniques, core strengthening and proper posture. Thank you for allowing me to participate in the care of your patient. Medications: New oxycodone-acetaminophen 5-325 mg (Percocet) Partial Fill upon patient request. 1 tab PO Q4H PRN 28 tabs 0RF pain 7 days M47.816 - Spondylosis without myelopathy or radiculopathy, lumbar region, M48.061 - Spinal stenosis, lumbar region without neurogenic claudication Coding Level of Care Code Est Pt Level 4 (65311) Diagnoses Lumbar spondylosis M47.816 Spinal stenosis of lumbar region with neurogenic claudication M48.062 Neurogenic claudication status: with neurogenic claudication Personal history of nicotine dependence Z87.893
== END 2025-09-04 10:35 | disposition home or self-care (01) ==
LOC: HO.HPHYS 09:38
PROVIDERS: PCP Nurse Practitioner Family; Visit Provider Physician Assistant
DX: M47.816 Spondylosis without myelopathy or radiculopathy, lumbar region (principal); M48.062 Spinal stenosis, lumbar region with neurogenic claudication; Z87.891 Personal history of nicotine dependence
CPT/HCPCS: 99214